=== PATIENT | male | born 1985 | race American Indian/Alaskan Native ===

== ENCOUNTER 2017-02-27 16:13 | Inpatient (IN) | payer MEDICAID ==
[2017-02-27] MEDS ORDERED: NACL 0.9% 1000 ML 1,000 ML IV ONE (17:28)
[2017-02-27 23:39] LABS: Hematocrit 33.2 % (35.5-45.6); Hemoglobin 10.6 gm/dl (11.8-15.2); Mean Corpuscular HGB Conc 32 % (32-34); Mean Corpuscular Volume 79 fl (84-94); Platelet Count 216 K/mm3 (140-440); White Blood Count 2.8 K/mm3 (4.5-11.0)
[2017-02-27 23:41] LABS: Mean Corpuscular Hemoglobin 25 pg (28-32); Red Cell Distribution Width 20.3 % (13.2-15.2)
[2017-02-27 23:52] LABS: INR 0.96 (0.87-1.13)
[2017-02-27 23:53] LABS: Partial Thromboplastin Time 36.9 Sec. (24.2-36.6)
[2017-02-28 00:02] LABS: Alanine Aminotransferase 23 units/L (7-56); Albumin 3.9 g/dL (3.9-5); Alkaline Phosphatase 59 units/L (35-129); Anion Gap 18 mmol/L; BUN/Creatinine Ratio 11.25; Bilirubin,Total 0.2 mg/dL (0.1-1.2); Blood Urea Nitrogen 9 mg/dL (9-20); Calcium 8.6 mg/dL (8.4-10.2); Carbon Dioxide 25 mmol/L (22-30); Chloride 99.1 mmol/L (98-107); Glucose 106 mg/dL (75-100); Lipase 27 units/L (13-60); Potassium 3.5 mmol/L (3.6-5.0); Sodium 139 mmol/L (137-145); Total Protein 7.7 g/dL (6.3-8.2)
[2017-02-28] MEDS ORDERED: ZOFRAN IV ONE (02:03)
[2017-02-28] MEDS ORDERED: NACL 0.9% 1000 ML 1,000 ML IV ONE (02:03)
[2017-02-28] MEDS ORDERED: DILAUDID IV ONE (02:03)
--- NOTE | 2017-02-28 02:33 | Emergency Department Report ---
ED GI Bleed HPI - General Chief complaint: GI Bleed Stated complaint: ABD PAIN Time Seen by Provider: 02/28/17 01:18 Source: patient Mode of arrival: Ambulatory Limitations: No Limitations - History of Present Illness Initial comments: 32 yo male with a past medical history HIV/AIDS presents to Hospital complaints of rectal bleeding, nausea, vomiting, and diarrhea. Nausea vomiting of blood in stool started yesterday. Diarrhea started today. Patient complains of intermittent lowering throbbing abdominal pain worse with palpation. No alleviating factors. Pain is reproducible chest tenderness intensity. Patient states his CD4 count is low. Patient has had similar presentation in the past. Previous medical record reviewed. Patient was admitted here March 2016 for 1 day for tenderness appetite is and rectal bleeding but signed out AGAINST MEDICAL ADVICE. It was also noted patient has a history of alcohol abuse. In general 2015 patient was admitted here and had endoscopy and colonoscopy showing hiatal hernia, small shallow ulcer along the esophageal body, vito esophagitis, gastritis of the body and antrum as well as internal hemorrhoids. - Related Data Home Medications Medication Instructions Recorded Confirmed Last Taken Darunavir Ethanolate [Prezista] 75 mg PO QDAY 01/24/16 02/28/17 02/27/17 Ritonavir [Norvir] 100 mg PO QDAY 01/24/16 02/28/17 02/27/17 Darunavir Ethanolate [Prezista] 1 tab PO QDAY 02/28/17 02/28/17 02/27/17 Dolutegravir Sodium [Tivicay] 1 tab PO DAILY 02/28/17 02/28/17 02/27/17 Allergies Allergy/AdvReac Type Severity Reaction Status Date / Time azithromycin Allergy Swelling Verified 01/24/16 16:22 ketorolac tromethamine Allergy Rash Verified 01/24/16 16:22 [From Toradol] metoclopramide HCl Allergy Hives Verified 01/24/16 16:22 [From Reglan] morphine Allergy Vomiting Verified 01/24/16 16:22 tramadol Allergy Hives Verified 01/24/16 16:22 ED Review of Systems ROS: Stated complaint: ABD PAIN Other details as noted in HPI Comment: All other systems reviewed and negative Other: Constitutional: No fevers chills Eyes: No eye pain visual changes ENT: No ear pain or throat pain Neck: Denies pain Respiratory: Denies cough wheezing shortness of breath Cardiovascular: Denies chest pain, palpitations, syncope GI: As per HPI : Denies dysuria Musculoskeletal: Denies back pain, joint swelling Skin: Denies rash, lesions, erythema Neurologic: Denies headache, numbness, weakness Psychiatric: Denies suicidal ideation, hallucinations ED Past Medical Hx - Past Medical History Previous Medical History?: Yes Hx Hypertension: No Hx Heart Attack/AMI: No Hx Congestive Heart Failure: No Hx Diabetes: No Hx Deep Vein Thrombosis: No Hx Pulmonary Embolism: Yes (pneumothorax) Hx Liver Disease: No Hx Renal Disease: No Hx Seizures: No Hx Asthma: No Hx COPD: No Hx Tuberculosis: No Hx HIV: Yes Additional medical history: PCP pneumonia (2009) - Surgical History Past Surgical History?: Yes Hx Pacemaker: No Hx Internal Defibrillator: No Additional Surgical History: BILATERAL knee surg, chest tube - Social History Smoking Status: Current Every Day Smoker Substance Use Type: Alcohol, Prescribed - Medications Home Medications: Home Medications Medication Instructions Recorded Confirmed Last Taken Type Darunavir Ethanolate [Prezista] 75 mg PO QDAY 01/24/16 02/28/17 02/27/17 History Ritonavir [Norvir] 100 mg PO QDAY 01/24/16 02/28/17 02/27/17 History Darunavir Ethanolate [Prezista] 1 tab PO QDAY 02/28/17 02/28/17 02/27/17 History Dolutegravir Sodium [Tivicay] 1 tab PO DAILY 02/28/17 02/28/17 02/27/17 History ED Physical Exam - General Limitations: No Limitations - Other Other exam information: General: No limitations, patient is alert in no acute distress Head exam: Atraumatic, normocephalic Eyes exam: Normal appearance ENT: Moist mucous membrane, no thrush Neck exam: Normal inspection, full range of motion, no meningismus nontender Respiratory exam: Clear to auscultation bilateral, no wheezes, rales, crackles Cardiovascular: Normal rate and rhythm, normal heart sounds Abdomen: Soft, nondistended, lower abdominal tenderness, normal bowel sounds, no rebound or guarding. Patient is vomiting in the ED Extremity: Full range of motion normal inspection no deformity Back: Normal Inspection, full range of motion, no tenderness Neurologic: Alert, oriented x3, cranial nerves intact, no motor or sensory deficit Psychiatric: normal affect, normal mood Skin: Warm, dry, intact ED Course Vital Signs 02/27/17 02/28/17 02/28/17 17:23 01:37 01:43 Temperature 99.0 F Pulse Rate 85 83 Respiratory 16 15 20 Rate Blood Pressure 139/86 115/69 O2 Sat by Pulse 93 100 Oximetry - Reevaluation(s) Reevaluation #1: 02/28/17 02:41 Patient treated with Dilaudid, Benadryl, Zofran, and normal saline - Consultations Consultation #1: 02/28/17 02:39 Case d/w Dr. Maximilian COMBS WIll consult in am ED Medical Decision Making - Lab Data Result diagrams: 02/27/17 23:13 02/27/17 23:13 Lab Results 02/27/17 02/27/17 02/27/17 Range/Units 23:13 23:13 23:13 WBC 2.8 L (4.5-11.0) K/mm3 RBC 4.20 (3.65-5.03) M/mm3 Hgb 10.6 L (11.8-15.2) gm/dl Hct 33.2 L (35.5-45.6) % MCV 79 L (84-94) fl MCH 25 L (28-32) pg MCHC 32 (32-34) % RDW 20.3 H (13.2-15.2) % Plt Count 216 (140-440) K/mm3 [place] % (Auto) Chain Maker Hand PT 12.7 (12.2-14.9) Sec. INR 0.96 (0.87-1.13) APTT 36.9 H (24.2-36.6) Sec. Sodium 139 (137-145) mmol/L Potassium 3.5 L (3.6-5.0) mmol/L Chloride 99.1 (98-107) mmol/L Carbon Dioxide 25 (22-30) mmol/L Anion Gap 18 mmol/L BUN 9 (9-20) mg/dL Creatinine 0.8 (0.8-1.5) mg/dL Estimated GFR > 60 ml/min BUN/Creatinine Ratio 11.25 % Glucose 106 H (75-100) mg/dL Calcium 8.6 (8.4-10.2) mg/dL Total Bilirubin 0.2 (0.1-1.2) mg/dL AST 32 (5-40) units/L ALT 23 (7-56) units/L Alkaline Phosphatase 59 (35-129) units/L Total Protein 7.7 (6.3-8.2) g/dL Albumin 3.9 (3.9-5) g/dL Albumin/Globulin Ratio 1.0 % Lipase 27 (13-60) units/L Blood Type Antibody Screen 02/27/17 Range/Units 23:13 WBC (4.5-11.0) K/mm3 RBC (3.65-5.03) M/mm3 Hgb (11.8-15.2) gm/dl Hct (35.5-45.6) % MCV (84-94) fl MCH (28-32) pg MCHC (32-34) % RDW (13.2-15.2) % Plt Count (140-440) K/mm3 [place] % (Auto) PT (12.2-14.9) Sec. INR (0.87-1.13) APTT (24.2-36.6) Sec. Sodium (137-145) mmol/L Potassium (3.6-5.0) mmol/L Chloride (98-107) mmol/L Carbon Dioxide (22-30) mmol/L Anion Gap mmol/L BUN (9-20) mg/dL Creatinine (0.8-1.5) mg/dL Estimated GFR ml/min BUN/Creatinine Ratio % Glucose (75-100) mg/dL Calcium (8.4-10.2) mg/dL Total Bilirubin (0.1-1.2) mg/dL AST (5-40) units/L ALT (7-56) units/L Alkaline Phosphatase (35-129) units/L Total Protein (6.3-8.2) g/dL Albumin (3.9-5) g/dL Albumin/Globulin Ratio % Lipase (13-60) units/L Blood Type A POSITIVE Antibody Screen Negative - EKG Data -: EKG Interpreted by Me (sinus rhythm rate 88 and nonspecific T-wave abnormality) - EKG Data When compared to previous EKG there are: no significant change (compared to ) - Medical Decision Making Plan to admit this to the hospital overnight for hydration, hemoglobin monitoring, and control of pain and vomiting. - Differential Diagnosis hemorrhoids, AVM, diverticulosis, cancer,anemia, gastroenteritis, PUD Critical Care Time: No Critical care attestation.: If time is entered above; I have spent that time in minutes in the direct care of this critically ill patient, excluding procedure time. ED Disposition Clinical Impression: BRBPR (bright red blood per rectum), HIV (human immunodeficiency virus infection), Hx of hemorrhoids, Vomiting, Abdominal pain Disposition: OP ADMITTED IP TO THIS HOSP Is pt being admited?: Yes Condition: Stable Time of Disposition: 02:42 (Dr Wilde/hosp)
[2017-02-28] MEDS ORDERED: BENADRYL IV ONE (02:34)
[2017-02-28] MEDS ORDERED: MILK OF MAGNESIA PO PRN (03:25)
[2017-02-28] MEDS ORDERED: DULCOLAX PR PRN (03:25)
--- NOTE | 2017-02-28 03:35 | History and Physical Report ---
History of Present Illness Date of examination: 02/28/17 History of present illness: 30 y.o. man history of HIV, internal hemorrhoids came to the emergency room with abdominal pain, nausea, vomiting, diarrhea. Admits to hematochezia with bowel movements. Abdominal pain lower abdomen, better with pain medications Patient denies chest pain, palpitation, shortness of breath, cough, abdominal pain, hematochezia, dysuria, frequency, focal weakness, dysarthria, fever chills , polydipsia polyuria, hot or cold intolerance, easy bruisability, or rash or bleeding from mucosal membrane, rhinorrhea, epistaxis, earache, tinnitus, blurry vision, eye discharge, anxiety, depression. Other review of systems negative PAST SURGICAL HISTORY: Bilateral knee surgery, IVC filter SOCIAL HISTORY: Smokes half pack a day, drinks 8 beers a day, no drug FAMILY HISTORY: Hypertension Medications and Allergies Allergies Allergy/AdvReac Type Severity Reaction Status Date / Time azithromycin Allergy Swelling Verified 01/24/16 16:22 ketorolac tromethamine Allergy Rash Verified 01/24/16 16:22 [From Toradol] metoclopramide HCl Allergy Hives Verified 01/24/16 16:22 [From Reglan] morphine Allergy Vomiting Verified 01/24/16 16:22 tramadol Allergy Hives Verified 01/24/16 16:22 Home Medications Medication Instructions Recorded Confirmed Last Taken Type Darunavir Ethanolate [Prezista] 75 mg PO QDAY 01/24/16 02/28/17 02/27/17 History Ritonavir [Norvir] 100 mg PO QDAY 01/24/16 02/28/17 02/27/17 History Darunavir Ethanolate [Prezista] 1 tab PO QDAY 02/28/17 02/28/17 02/27/17 History Dolutegravir Sodium [Tivicay] 1 tab PO DAILY 02/28/17 02/28/17 02/27/17 History Active Meds: Active Medications Bisacodyl (Dulcolax) 10 mg NC QDAY PRN PRN Reason: Constipation unrelieved by MOM Hydromorphone HCl (Dilaudid) 1 mg IV Q6H PRN PRN Reason: Pain, Moderate (4-6) Magnesium Hydroxide (Milk Of Magnesia) 30 ml PO Q4H PRN PRN Reason: Constipation Ondansetron HCl (Zofran) 4 mg IV Q4H PRN PRN Reason: N/V unrelieved by Reglan Exam - Physical Exam Narrative exam: Gen. appearance: Patient lying in bed, no apparent distress HEENT: Normocephalic, atraumatic, pupils equally round and reactive to light, extraocular movement intact, and no sclericterus,. No JVD or thyromegaly or nodule,neck supple, no carotid bruit ,mucous membranes moist, no exudate or erythema Heart: S1, S2, regular rate and rhythm Lungs: Clear to auscultation bilaterally, breathing comfortable Abdomen: Positive bowel sounds, nontender, nondistended, no organomegaly Extremity: No edema, cyanosis, clubbing Skin: No rash, nodules, warm, dry Neuro: Oriented 3, cranial nerves II-12 intact, speech is fluent, motor and sensory intact - Constitutional Vitals: Temp Pulse Resp BP Pulse Ox 99.0 F 83 20 115/69 100 02/27/17 17:23 02/28/17 01:37 02/28/17 02:32 02/28/17 01:37 02/28/17 01:43 Results - Labs CBC & Chem 7: 02/27/17 23:13 02/27/17 23:13 Labs: Abnormal lab results 02/27/17 02/27/17 02/27/17 Range/Units 23:13 23:13 23:13 WBC 2.8 L (4.5-11.0) K/mm3 Hgb 10.6 L (11.8-15.2) gm/dl Hct 33.2 L (35.5-45.6) % MCV 79 L (84-94) fl MCH 25 L (28-32) pg RDW 20.3 H (13.2-15.2) % APTT 36.9 H (24.2-36.6) Sec. Potassium 3.5 L (3.6-5.0) mmol/L Glucose 106 H (75-100) mg/dL Assessment and Plan Rectal bleed due to internal hemorrhoids Abdominal pain HIV History of DVT Admit to medicine Continue start IV fluids, IV dilaudid, Consult GI start outpatient medications, DVT prophylaxis with SCD
--- NOTE | 2017-02-28 04:19 | Admit Criteria Form ---
Admission Criteria Documentation: GASTROINTESTINAL BLEEDING, LOWER Clinical Indications for Admission to Inpatient Care ( Place 'X' for any and all applicable criteria): Admission is indicated for ANY ONE of the following(1)(2)(3)(4)(5): [X ]I. Active gross bleeding per rectum [ ]II. Inpatient admission required rather than observation care (Also use Gastrointestinal Bleeding, Lower: Observation Care as appropriate) because of ANY ONE of the following: [ ]a) Hemodynamic instability that is severe or persistent [ ]b) Anemia requiring inpatient admission as indicated by ALL of the following: [ ]1) Presence of significant clinical finding indicated by ANY ONE of the following: [ ]A. Tachycardia for age [ ]B. Orthostatic vital sign changes [ ]C. Cognitive impairment [ ]D. Heart failure [ ]E. Chest pain [ ]F. Exertional dyspnea [ ]G. Other findings suggesting inadequate perfusion (eg, peripheral or myocardial ischemia, end organ dysfunction) [ ]2) Initial (eg, emergency department, observation care) treatment with transfusion or volume replacement is judged inappropriate (due to severity of the finding) or has been ineffective [ ]c) Severe pain requiring acute inpatient management [ ]d) Absent bowel sounds with complete ileus [ ]e) Signs of intestinal obstruction or peritonitis [A] [ ]f) High-risk low platelet count [ ]g) Severe electrolyte abnormalities requiring inpatient care [ ]h) Acute renal failure [ ]i) High fever or infection requiring inpatient admission as indicated by ANY ONE of the following(8)(9): [ ]1) Appropriate outpatient or observation care antimicrobial treatment unavailable, not effective, or not feasible Documented bacteremia [ ]2) Documented bacteremia [ ]3) Temperature greater than 104.9 degrees F ( 40.5 degrees C) (oral) [ ]4) Temperature greater than 103.1 degrees F ( 39.5 degrees C) (oral) or less than 96.8 degrees F (36 degrees C) (rectal) that does not respond to all emergency treatment measures [ ]j) IV fluid to replace significant ongoing losses ( greater than 3 L/m2 per day) [ ]k) Immediate inpatient surgery needed [ ]l) Parenteral nutrition regimen that must be implemented on inpatient basis [ ]m) Other condition, treatment or monitoring requiring inpatient admission [ ]III. Unstable comorbid illness (renal, hepatic, pulmonary, hematologic, neurologic, or cardiac) [ ]IV. Failure to control bleeding after colonoscopy [ ]V. Coagulopathy [ ]. Suspected or known ischemic colitis(6) [ ]VII. Previous aortic graft placement or known aortic aneurysm Extended stay beyond goal length of stay may be needed for(3)(4)(28): [ ]a) Emergency surgery [ ]b) Coagulation abnormalities(26) [ ]c) Recurrent or persistent bleeding, continued vital sign instability(27)( 28) [ ]d) Active comorbidities (eg, renal insufficiency, heart failure, pre- existing liver disease) The original [employer] content created by [employer] has been revised. The portions of the content which have been revised are identified through the use of italic text or in bold, and [facility] has neither reviewed nor approved the modified material. All other unmodified content is copyright [email or web address]. Please see references footnoted in the original [employer] edition 2016 Admission Criteria Met: Yes
[2017-02-28 04:50] LABS: Basophils % (Manual) 0 % (0.0-1.8); Blastocytes % (Manual) 0 %; Eosinophils % (Manual) 0 % (0.0-4.3)
[2017-02-28 04:51] LABS: Anisocytosis 1+; Diff Status Complete; Elliptocytes Few; Hypochromasia 1+; Tear Drop Cells Rare
[2017-02-28] MEDS: DILAUDID IV PRN ×3 (08:09→21:15)
[2017-02-28] MEDS: ZOFRAN IV PRN ×3 (08:11→18:22)
--- NOTE | 2017-02-28 08:24 | Event Note ---
Date: 02/28/17
[2017-02-28] MEDS: PROTONIX IV SCH ×2 (13:55→21:16)
[2017-02-28] MEDS ORDERED: GOLYTELY PO ONE (18:00)
[2017-03-01] MEDS: ZOFRAN IV PRN (00:21)
--- NOTE | 2017-03-01 00:44 | Consultation ---
INDICATION: Rectal bleeding. HISTORY OF PRESENT ILLNESS: The patient is a 30-year-old black male with history of HIV, internal hemorrhoids, came to Emergency Room for abdominal pain, rectal bleeding. The patient reports he started having hematochezia with bright red maroon stools one day prior to admission along with abdominal pain. He reports no nausea, vomiting. He reports no hematemesis. Denies any dysphagia. The patient is status post EGD and colonoscopy within the last year with esophagitis, but no other significant pathology. The patient denies any weight loss or weakness. Denies any other specific complaints. PAST MEDICAL HISTORY: 1. HIV positive. 2. Internal hemorrhoids. PAST SURGICAL HISTORY: 1. Bilateral knee surgery. 2. Status post IVC filter placed. MEDICATIONS: See chart. ALLERGIES: 1. AZITHROMYCIN. 2. TORADOL. 3. REGLAN. 4. MORPHINE. 5. TRAMADOL. SOCIAL HISTORY: One-pack a day smoker. Eight beers a day. FAMILY HISTORY: Negative for colon cancer. REVIEW OF SYSTEMS: GENERAL: Reports mild weakness. HEENT: No visual complaints or tinnitus. PULMONARY: Shortness of breath. No cough. No chest pain. GASTROINTESTINAL: Reports rectal bleeding. All points of 13-point review of systems otherwise negative. PHYSICAL EXAMINATION: VITAL SIGNS: Temperature of 98.2, pulse 71, respirations 20, blood pressure 119/78. GENERAL: Fairly nourished male, in no acute distress. HEENT: Pupils equal, round, and reactive to light and accommodation. PULMONARY: Clear to auscultation bilaterally. CARDIOVASCULAR: Regular rhythm. Normal S1, S2. ABDOMEN: Positive bowel sounds, soft. SKIN: No obvious rashes. LABORATORY DATA: Pertinent for white count of 2.8, hemoglobin and hematocrit 10.6 and 33.2, platelet count of 216,000. Chem-7 within normal limits. LFTs within normal limits. Coags within normal limits. ASSESSMENT AND PLAN: A 32-year-old reported HIV, noncompliant black male, presents with 1 day of rectal bleeding. The patient noted to have heme positive stool. Emergency report shows he is continued to have bleeding. The patient did have an EGD and colonoscopy within the last year, which only showed esophagitis. Possibility of hemorrhoids versus other lower GI pathology. PLAN: 1. Follow hematocrit and transfuse as needed. 2. Avoid NSAIDs and aspirin. 3. If rectal bleeding persists, we will plan for colonoscopy in a.m. 4. Further recommendation based on progress. [facility]# [id number] CAB/NTS
[2017-03-01] MEDS: DILAUDID IV PRN ×2 (03:16→10:17)
[2017-03-01] MEDS ORDERED: WATER FOR IRRIG STERILE IR ONE (08:21)
[2017-03-01] MEDS ORDERED: DIPRIVAN 10 MG/ML IV ONE ×2 (08:57)
[2017-03-01] MEDS ORDERED: NACL 0.9% 1000 ML 1,000 ML IV SCH (09:00)
--- NOTE | 2017-03-01 09:33 | Post Operative Note ---
Pre-op diagnosis: Rectal Bleeding, Poor prep Post-op diagnosis: other (Hemorrhoids, Poor prep) Findings: 1. Scattered solid stool in colon, but no blood or clots. 2. Grade II internal hemorrhoids but no obvious fissure Procedure: Colonoscopy Anesthesia: MAC Surgeon: CEDRICK KAHN Estimated blood loss: none Pathology: none Specimen disposition: other (N/A) Condition: stable Disposition: floor (Recs: 1. Topical care of hemorrhoids. 2. OK to d/c home from our standpoint.)
--- NOTE | 2017-03-01 09:41 | Anesthesia Consultation ---
Anesthesia Consult and Med Hx Date of service: 03/01/17 - Airway Anesthetic Teeth Evaluation: Good ROM Head & Neck: Adequate Mental/Hyoid Distance: Adequate Mallampati Class: Class II Intubation Access Assessment: Probably Good - Pulmonary Exam CTA: Yes - Cardiac Exam Cardiac Exam: RRR - Pre-Operative Health Status ASA Pre-Surgery Classification: ASA3 Proposed Anesthetic Plan: MAC - Pulmonary Hx Smoking: Yes Hx Asthma: No COPD: No Hx Pneumonia: Yes Hx Sleep Apnea: No - Cardiovascular System Hx Hypertension: No Hx Coronary Artery Disease: No Hx Heart Attack/AMI: No Hx Angina: No Hx Pacemaker: No Hx Internal Defibrillator: No - Central Nervous System Hx Seizures: No CVA: No Hx Psychiatric Problems: No - Gastrointestinal Hx Ulcer: Yes - Endocrine Hx Renal Disease: No Hx End Stage Renal Disease: No Hx Liver Disease: No Hx Non-Insulin Dependent Diabetes: No Hx Thyroid Disease: No - Hematic Hx Anemia: Yes (HIV/AIDS) - Other Systems Hx Alcohol Use: Yes
--- NOTE | 2017-03-01 09:42 | Anesthesia Day of Surgery ---
Anesthesia Day of Surgery - Day of Surgery Patient Examined: Yes Patient H&P Reviewed: Yes Patient is NPO: Yes
--- NOTE | 2017-03-01 09:54 | Operative Report ---
PROCEDURE PERFORMED: Colonoscopy. PREOPERATIVE DIAGNOSIS: Rectal bleeding. POSTOPERATIVE DIAGNOSES: Hemorrhoids and poor preparation. ENDOSCOPIST: Rowdy Uribe MD. INSTRUMENT: [employer] video endoscope. MEDICATIONS: MAC anesthesia by [facility]. COMPLICATIONS: No apparent complications. ESTIMATED BLOOD LOSS: None. CONDITION AT COMPLETION: Stable. IMPLANTS: None. WARRANT SERVER: None SPECIMENS: None. TECHNIQUE: The patient was informed of the risks and benefits of the procedure. He signed the informed consent to proceed. He was placed in the left lateral decubitus position. The above sedative medications were given. His vital signs remained stable throughout the procedure. The instrument was advanced from the anus to the cecum under direct visualization. At that point, the bowel was insufflated and the endoscope was slowly withdrawn. The cecum was identified by the appendiceal orifice and the ileocecal valve. The quality of preparation was poor and there was some solid stool scattered throughout the colon. FINDINGS: 1. Mild amount of solid stool, but no blood or blood clots throughout the colon. 2. Grade 2 internal hemorrhoids, not actively bleeding; there was no evidence of an anal fissure. 3. No other significant lesions were noted. RECOMMENDATIONS: 1. Advance diet. 2. Monitor blood counts. 3. Okay to discharge the patient home when taking a regular diet. 4. Follow up in clinic as needed. 5. Topical care of hemorrhoids. JOB# [id number] CASSIA/NTS
[2017-03-01] MEDS: PROTONIX IV SCH (10:17)
[2017-03-01 10:41] VITALS: BP 113/86
[2017-03-01 11:55] LABS: Hematocrit 34.3 % (35.5-45.6); Mean Corpuscular HGB Conc 32 % (32-34); Mean Corpuscular Volume 79 fl (84-94); Platelet Count 207 K/mm3 (140-440); Red Blood Count 4.35 M/mm3 (3.65-5.03); Red Cell Distribution Width 19.7 % (13.2-15.2); White Blood Count 3.5 K/mm3 (4.5-11.0)
[2017-03-01 12:04] LABS: Anion Gap 17 mmol/L; BUN/Creatinine Ratio 7.14; Blood Urea Nitrogen 5 mg/dL (9-20); Calcium 8.6 mg/dL (8.4-10.2); Carbon Dioxide 23 mmol/L (22-30); Chloride 99.7 mmol/L (98-107); Glucose 88 mg/dL (75-100); Potassium 3.8 mmol/L (3.6-5.0); Sodium 136 mmol/L (137-145)
[2017-03-01 12:05] LABS: Mean Corpuscular Hemoglobin 25 pg (28-32)
[2017-03-01] MEDS ORDERED: DILAUDID PO PRN (12:36)
--- NOTE | 2017-03-01 12:37 | Discharge Summary ---
Providers - Providers Date of Admission: 02/28/17 03:25 Date of discharge: 03/01/17 Attending physician: PRATIMA NICHOLS Primary care physician: SPEAKER MOUNTER Hospitalization Condition: Stable Disposition: DISCHARGED TO HOME OR SELFCARE Core Measure Documentation - Palliative Care Palliative Care/ Comfort Measures: Not Applicable - Core Measures Any of the following diagnoses?: none Exam - Constitutional Vitals: Temp Pulse Resp BP Pulse Ox 98.9 F 75 16 113/86 100 03/01/17 09:25 03/01/17 09:55 03/01/17 09:55 03/01/17 09:55 03/01/17 10:00 General appearance: Present: no acute distress, well-nourished - EENT Eyes: Present: PERRL, EOM intact - Neck Neck: Present: supple, normal ROM - Respiratory Respiratory effort: normal Respiratory: negative: rales, rhonchi, wheezing - Cardiovascular Rhythm: regular Heart Sounds: Present: S1 & S2 - Extremities Extremities: no ischemia, pulses intact, pulses symmetrical Peripheral Pulses: within normal limits - Abdominal General gastrointestinal: Present: soft, non-tender, non-distended, normal bowel sounds - Integumentary Integumentary: Present: clear, warm - Musculoskeletal Musculoskeletal: strength equal bilaterally - Psychiatric Psychiatric: appropriate mood/affect, cooperative - Neurologic Neurologic: CNII-XII intact, moves all extremities Plan Activity: advance as tolerated Diet: regular Additional Instructions: f/u GI as needed. high fiber diet Follow up with: PRIMARY CARE, [Primary Care Provider] - 7 Days Prescriptions: Ciprofloxacin HCl [Ciprofloxacin TAB] 500 mg PO Q12H #10 tab Docusate Sodium [Colace] 100 mg PO BID PRN #14 capsule PRN Reason: Constipation guaiFENesin/DEXTROMETHORPHAN [Robitussin Kzyzw-Onzhq-Dudx Dm] 1 each PO TID PRN #15 capsule PRN Reason: Cough Hydrocortisone [Anucort-HC SUPPOS] 25 mg RC BID #14 supp.rect HYDROmorphone [Dilaudid] 1 mg PO Q12H #10 tablet
--- NOTE | 2017-03-01 13:02 | XRay Report ---
Single view chest: Compared to 12/04/15. History: Cough. Findings: Normal cardiomediastinal silhouette. Trachea is midline. No consolidation, pneumothorax or pleural effusion. Impression: No acute cardiopulmonary findings.
[2017-03-01 15:06] LABS: Anisocytosis 1+; Basophils % (Manual) 0 % (0.0-1.8); Blastocytes % (Manual) 0 %
[2017-03-01 15:07] LABS: Diff Status Complete; Hypochromasia Few; Platelet Estimate Consistent w Auto
== END 2017-03-01 16:30 | disposition home or self-care (01) | DRG 395 ==
LOC: ED 16:13 → 3A 02-28 03:25
PROVIDERS: ADMIT Internal Medicine; ATTEND Internal Medicine
PROC: 0DJD8ZZ Inspection of Lower Intestinal Tract, Via Natural or Artificial Opening Endoscopic (ICD-10-PCS; principal; 2017-02-28)
DX: K64.8 Other hemorrhoids (principal); Z21 Asymptomatic human immunodeficiency virus [HIV] infection status; F17.210 Nicotine dependence, cigarettes, uncomplicated; Z88.1 Allergy status to other antibiotic agents; Z88.8 Allergy status to other drugs, medicaments and biological substances; Z79.899 Other long term (current) drug therapy; Z88.5 Allergy status to narcotic agent; Z86.711 Personal history of pulmonary embolism; Z82.49 Family history of ischemic heart disease and other diseases of the circulatory system; Z86.718 Personal history of other venous thrombosis and embolism; Z79.01 Long term (current) use of anticoagulants; Z87.01 Personal history of pneumonia (recurrent); Z91.14 Patient's other noncompliance with medication regimen
CPT/HCPCS: 36415; 71010; 80048; 80053; 82271; 83690; 85007; 85025; 85610; 85730; 86850; 86900; 86901; 93005; 93010; 96361; 96374; 96375; 99406; C9113; J1170; J1200; J2405; J2704; J7030

== ENCOUNTER 2017-09-03 12:37 | Emergency (ER) | payer MEDICAID ==
[2017-09-03] MEDS ORDERED: NACL 0.9% 1000 ML 1,000 ML IV ONE (16:01)
[2017-09-03] MEDS ORDERED: PEPCID IV ONE (17:40)
[2017-09-03] MEDS ORDERED: ZOFRAN IV ONE (17:51)
--- NOTE | 2017-09-03 17:51 | Emergency Department Report ---
HPI - General Chief Complaint: GI Bleed Time Seen by Provider: 09/03/17 16:54 - HPI HPI: This is a 32-year-old Afro-[place] male presents to the emergency department with complaint of upper abdominal pain, nausea and vomiting has been going on for the past week but worsened over the past 2 days. He also complains of some intermittent rectal bleeding with bowel movements but nothing in the past few days. He has a history of multiple previous visits for similar symptoms. He had a colonoscopy in March of this year, here at [facility], that showed some internal hemorrhoids but otherwise no source of bleeding. He does not currently have any primary care physician or infectious disease doctor. He has a history of HIV and gastric ulcers. He has had PCP pneumonia in the past. He has not taken anything for symptoms without presentation. He has not on any HIV medications. He also complains of some thrush in the mouth the past 2 weeks. He says that he has been resistant in the past to fluconazole and has required miconazole. ED Past Medical Hx - Past Medical History Previous Medical History?: Yes Hx Hypertension: No Hx Heart Attack/AMI: No Hx Congestive Heart Failure: No Hx Diabetes: No Hx Deep Vein Thrombosis: No Hx Pulmonary Embolism: Yes (pneumothorax) Hx Liver Disease: No Hx Renal Disease: No Hx Seizures: No Hx Asthma: No Hx COPD: No Hx Tuberculosis: No Hx HIV: Yes Additional medical history: PCP pneumonia (2009), gastric ulcers - Surgical History Past Surgical History?: Yes Hx Pacemaker: No Hx Internal Defibrillator: No Additional Surgical History: BILATERAL knee surg, chest tube - Social History Smoking Status: Current Every Day Smoker Substance Use Type: Alcohol, Prescribed - Medications Home Medications: Home Medications Medication Instructions Recorded Confirmed Last Taken Type Darunavir Ethanolate [Prezista] 75 mg PO QDAY 01/24/16 02/28/17 02/27/17 History Ritonavir [Norvir] 100 mg PO QDAY 01/24/16 02/28/17 02/27/17 History Dolutegravir Sodium [Tivicay] 1 tab PO DAILY 02/28/17 02/28/17 02/27/17 History Ciprofloxacin HCl [Ciprofloxacin 500 mg PO Q12H #10 tab 03/01/17 Unknown Rx TAB] Docusate Sodium [Colace] 100 mg PO BID PRN #14 capsule 04/01/17 Unknown Rx HYDROmorphone [Dilaudid] 1 mg PO Q12H #10 tablet 03/01/17 Unknown Rx Hydrocortisone [Anucort-HC SUPPOS] 25 mg RC BID #14 supp.rect 03/01/17 Unknown Rx guaiFENesin/DEXTROMETHORPHAN 1 each PO TID PRN #15 capsule 03/01/17 Unknown Rx [Robitussin Mbcem-Ogyck-Jkjt Dm] HYDROcodone/APAP 5-325 [[place] 1 each PO Q6HR PRN #10 tablet 09/03/17 Unknown Rx 5/325] Nystatin [Nystatin SUSP] 5 ml PO QID #280 ml 09/03/17 Unknown Rx Ondansetron [Zofran Odt] 4 mg PO Q8H PRN #10 tab.rapdis 09/03/17 Unknown Rx ED Review of Systems ROS: Stated complaint: RECTAL BLEEDING X 2 DAYS Other details as noted in HPI Comment: All other systems reviewed and negative Constitutional: denies: chills, fever Eyes: denies: eye pain, eye discharge, vision change ENT: other (oral thrush). denies: ear pain, throat pain Cardiovascular: denies: chest pain, palpitations Gastrointestinal: abdominal pain, nausea, vomiting Genitourinary: denies: urgency, dysuria Musculoskeletal: denies: back pain, joint swelling, arthralgia Skin: denies: rash, lesions Neurological: denies: headache, weakness, paresthesias Physical Exam - Physical Exam Vital Signs: Vital Signs 09/03/17 15:58 Temperature 99.4 F Pulse Rate 76 Respiratory 18 Rate Blood Pressure 116/79 O2 Sat by Pulse 100 Oximetry Physical Exam: GENERAL: The patient is well-developed well-nourished. HENT: Normocephalic. Atraumatic. Patient has moist mucous membranes. The patient has oral thrush. No tonsillar hypertrophy, erythema or exits. No drooling or trismus. EYES: Extraocular motions are intact. Pupils equal reactive to light bilaterally. NECK: Supple. Trachea is midline. CHEST/LUNGS: Clear to auscultation. There is no respiratory distress noted. HEART/CARDIOVASCULAR: Regular. There is no tachycardia. There is no gallop rub or murmur. ABDOMEN: Abdomen is soft. Mild upper abdominal tenderness to palpation. No guarding or rebound tenderness. Patient has normal bowel sounds. There is no abdominal distention. SKIN: Skin is warm and dry. NEURO: The patient is awake, alert, and oriented. The patient is cooperative. The patient has no focal neurologic deficits. The patient has normal speech. MUSCULOSKELETAL: There is no tenderness or deformity. There is no limitation range of motion. There is no evidence of acute injury. RECTAL: deferred ED Course Vital Signs 09/03/17 15:58 Temperature 99.4 F Pulse Rate 76 Respiratory 18 Rate Blood Pressure 116/79 O2 Sat by Pulse 100 Oximetry - Procedure Description Procedures done: An arterial stick was done to the right wrist as the nursing staff and phlebotomy were unable to draw the patient's blood. Using the ultrasound, I was able to find a right radial artery and a 22-gauge butterfly needle was used to cannulate the artery and multiple vials of blood were drawn. Afterwards sterile gauze and tape and pressure were held. No obvious complications. - EJ/Peripheral Line Arm R Time Out Performed: Yes Indications: nurses unable to establis Skin Cleansed in Sterile Fashion: Yes Size: 22 Dressing Placed: Tegaderm, tape Patient Tolerated Procedure: well Additional Comments: ultrasound guided ED Medical Decision Making - Lab Data Result diagrams: 09/03/17 16:01 09/03/17 16:01 - Radiology Data Radiology results: report reviewed, image reviewed interpreted by me: Abdominal x-ray shows nonspecific nonobstructive bowel gas. PROCEDURE: US ABDOMEN LIMITED TECHNIQUE: Real-time sonography was performed of the right upper quadrant with image documentation. CPT 39343 HISTORY: Upper abd pain COMPARISON: No prior studies are available for comparison. FINDINGS: Liver echogenicity is mildly diffusely increased suggesting fatty infiltration. No discrete liver lesions are identified. Common bile duct is normal caliber measuring 5.2 millimeters. The intrahepatic ducts are not distended. No ascites is seen. The gallbladder wall is not thickened. No gallstones are identified. Pancreas is poorly visualized due to bowel gas and cannot be accurately commented on. Right kidney showed no abnormalities. Right kidney measures 10.1 centimeters greatest length.. IMPRESSION: Mild fatty infiltration the liver. No other abnormalities are seen. Pancreas is poorly visualized due to bowel gas and cannot be accurately commented on. - Medical Decision Making 32-year-old male presents to the emergency department with complaint of upper abdominal pain that is acute on chronic as well as some nausea and vomiting. His labs are mostly unremarkable. There is some mild leukopenia but that may be related to his HIV. No leukocytosis. No elevation in the lipase, LFTs or bilirubin. Due to his upper abdominal pain, ultrasound was done in this region that shows some fatty infiltration of the liver but otherwise no other acute process. Abdominal x-ray shows nonspecific nonobstructive bowel gas. Vital signs stable including being afebrile. He was given some pain medication and nausea medication and upon reevaluation he is feeling improved. The patient does have some history of this oral thrush and there are some antifungals that he appears to be resistant to. However the patient is noncompliant with follow- up and one of the medications that he appears susceptible to 4 thrush requires IV administration and he otherwise does not require admission at this time. We will attempt treatment with nystatin swish and spit. Patient says that he has insurance and admits that noncompliance with follow-up with primary care and infectious disease and gastroenterology is a decision unit makes as opposed to a lack of insurance or lack of resources. I reiterated the importance of follow -up with these physicians as he is not currently taking anything for his HIV. He does not have anyone right now for follow-up of his liver enzymes if he were to go on antifungals. He already has established care with gastroenterology but will need to see them again regarding this intermittent rectal bleeding. He was discharged home with some pain medication and anti-emetics, nystatin, and has been encouraged to return to the ER if any worsening of symptoms or any acute distress. - Differential Diagnosis oral candidiasis, pancreatitis, hepatitis, cholecystitis, cholelithiasis Critical Care Time: No Critical care attestation.: If time is entered above; I have spent that time in minutes in the direct care of this critically ill patient, excluding procedure time. ED Disposition Clinical Impression: HIV (human immunodeficiency virus infection), Thrush, Hx of hemorrhoids Abdominal pain Qualifiers: Abdominal location: upper abdomen, unspecified Qualified Code(s): R10.10 - Upper abdominal pain, unspecified Vomiting Qualifiers: Vomiting type: unspecified Vomiting Intractability: non-intractable Nausea presence: with nausea Qualified Code(s): R11.2 - Nausea with vomiting, unspecified Disposition: DC-01 TO HOME OR SELFCARE Is pt being admited?: No Condition: Stable Instructions: Oral Candidiasis (ED), Acute Nausea and Vomiting (ED), Abdominal Pain (ED) Additional Instructions: Please follow up with a primary care physician in the next few days if possible. I have once again given you the referral for Dr. singer, infectious disease, and it is recommended that he follow up regarding your HIV/AIDS to be started on medication. I have given you a referral for Dr. de la fuente, gastroenterology, to follow up regarding her abdominal pain. Return to the emergency Department with any worsening of your symptoms or any acute distress. You have been prescribed a medication that is sedating and therefore should not be taken prior to driving, working, and responsible for children and in no way should be mixed with alcohol of any quantity. Prescriptions: HYDROcodone/APAP 5-325 [[place] 5/325] 1 each PO Q6HR PRN #10 tablet PRN Reason: Pain Nystatin [Nystatin SUSP] 5 ml PO QID #280 ml Ondansetron [Zofran Odt] 4 mg PO Q8H PRN #10 tab.rapdis PRN Reason: Nausea Referrals: PRIMARY CARE, [Primary Care Provider] - 3-5 Days ELISA SINGER MD [Staff Physician] - 3-5 Days CEDRICK DE LA FUENTE MD [Staff Physician] - 3-5 Days ISAC WALKER MD [Staff Physician] - 3-5 Days [facility] [Outside] - 3-5 Days [facility] [Outside] - 3-5 Days Forms: Accompanied Note Time of Disposition: 21:31
[2017-09-03 18:36] LABS: Basophils % (Auto) 0.1 % (0.0-1.8); Eosinophils % (Auto) 0.9 % (0.0-4.3); Hematocrit 31.2 % (35.5-45.6); Mean Corpuscular HGB Conc 32 % (32-34); Mean Corpuscular Volume 77 fl (84-94); Platelet Count 188 K/mm3 (140-440); Red Blood Count 4.06 M/mm3 (3.65-5.03); Red Cell Distribution Width 18.8 % (13.2-15.2); White Blood Count 3.1 K/mm3 (4.5-11.0)
[2017-09-03 18:38] LABS: Mean Corpuscular Hemoglobin 25 pg (28-32)
[2017-09-03] MEDS ORDERED: DILAUDID IV ONE (18:40)
[2017-09-03 18:46] LABS: INR 0.91 (0.87-1.13)
[2017-09-03 18:47] LABS: Partial Thromboplastin Time 29.9 Sec. (24.2-36.6)
[2017-09-03 19:04] LABS: Alanine Aminotransferase 15 units/L (7-56); Albumin 3.9 g/dL (3.9-5); Albumin/Globulin Ratio 0.9 %; Alkaline Phosphatase 82 units/L (35-129); Anion Gap 18 mmol/L; BUN/Creatinine Ratio 10; Bilirubin,Total < 0.20 mg/dL (0.1-1.2); Blood Urea Nitrogen 8 mg/dL (9-20); Calcium 8.4 mg/dL (8.4-10.2); Carbon Dioxide 25 mmol/L (22-30); Chloride 101.3 mmol/L (98-107); Glucose 116 mg/dL (75-100); Lipase 29 units/L (13-60); Potassium 3.2 mmol/L (3.6-5.0); Sodium 141 mmol/L (137-145); Total Protein 8.1 g/dL (6.3-8.2)
[2017-09-03] MEDS ORDERED: K-DUR PO ONE (19:28)
--- NOTE | 2017-09-03 21:09 | Ultrasound Report ---
FINAL REPORT PROCEDURE: US ABDOMEN LIMITED TECHNIQUE: Real-time sonography was performed of the right upper quadrant with image documentation. CPT 74157 HISTORY: Upper abd pain COMPARISON: No prior studies are available for comparison. FINDINGS: Liver echogenicity is mildly diffusely increased suggesting fatty infiltration. No discrete liver lesions are identified. Common bile duct is normal caliber measuring 5.2 millimeters. The intrahepatic ducts are not distended. No ascites is seen. The gallbladder wall is not thickened. No gallstones are identified. Pancreas is poorly visualized due to bowel gas and cannot be accurately commented on. Right kidney showed no abnormalities. Right kidney measures 10.1 centimeters greatest length.. IMPRESSION: Mild fatty infiltration the liver. No other abnormalities are seen. Pancreas is poorly visualized due to bowel gas and cannot be accurately commented on.
[2017-09-03 21:14] VITALS: BP 108/71
--- NOTE | 2017-09-04 07:49 | XRay Report ---
Abdomen 2 views: History: Abdominal pain. Findings: No free intraperitoneal air. No bowel distention or wall thickening. No radiopaque calculus abnormal calcification. Impression: Sensory negative abdomen.
== END 2017-09-03 21:54 | disposition home or self-care (01) ==
LOC: ED 12:37
DX: B37.9 Candidiasis, unspecified (principal); R11.2 Nausea with vomiting, unspecified; R10.10 Upper abdominal pain, unspecified
CPT/HCPCS: 36415; 36569; 74020; 76705; 80053; 83690; 85025; 85610; 85730; 86850; 86900; 86901; 93005; 93010; 96361; 96374; 96375; 99285; J1170; J2405; J7030

== ENCOUNTER 2018-02-08 17:32 | Emergency (ER) | payer MEDICAID ==
[2018-02-08 17:43] VITALS: BP 112/71
--- NOTE | 2018-02-08 18:25 | Emergency Department Report ---
Chief Complaint: Abdominal Pain Stated Complaint: ABDOMINAL PAIN/RECTAL BLEEDING - HPI History of Present Illness: Mr. Urena is a 33-year-old male has hx of HIV/AIDS with history of several hospitalizations related to recurrent oral candidiasis, abdominal pain and GI bleed. He has had several gastroenterology consultations while admitted. He has a PEG tube in place. Today he presents with abdominal pain and rectal bleeding. According to recent GI consultation, patient has a history of narcotic dependence. He was prescribed Dilaudid on most recent discharge. - Exam Vital Signs: Vital Signs 02/08/18 17:39 Temperature 99.4 F Pulse Rate 112 H Respiratory 16 Rate Blood Pressure 112/71 O2 Sat by Pulse 96 Oximetry MSE screening note: Focused history and physical exam performed. Due to findings the following was ordered: ED Disposition for MSE Condition: Stable
[2018-02-08 19:08] LABS: Basophils % (Auto) 0.7 % (0.0-1.8); Eosinophils # (Auto) 0.1 K/mm3 (0.0-0.4); Eosinophils % (Auto) 3.3 % (0.0-4.3); Hematocrit 33.4 % (35.5-45.6); Hemoglobin 10.8 gm/dl (11.8-15.2); Lymphocytes # (Auto) 0.5 K/mm3 (1.2-5.4); Lymphocytes % (Auto) 13.5 % (13.4-35.0); Mean Corpuscular HGB Conc 32 % (32-34); Mean Corpuscular Hemoglobin 27 pg (28-32); Mean Corpuscular Volume 83 fl (84-94); Monocytes # (Auto) 0.5 K/mm3 (0.0-0.8); Monocytes % (Auto) 13.6 % (0.0-7.3); Platelet Count 209 K/mm3 (140-440); Red Blood Count 4.05 M/mm3 (3.65-5.03); Red Cell Distribution Width 17.8 % (13.2-15.2)
[2018-02-08 19:32] LABS: Alanine Aminotransferase 16 units/L (7-56); Albumin 3.9 g/dL (3.9-5); BUN/Creatinine Ratio 11; Blood Urea Nitrogen 8 mg/dL (9-20); Calcium 8.7 mg/dL (8.4-10.2); Hemolysis Index 10; Lipase 18 units/L (13-60)
[2018-02-08] MEDS ORDERED: ZOFRAN IV ONE (20:00)
[2018-02-08] MEDS ORDERED: SUBLIMAZE IV ONE (20:00)
[2018-02-08] MEDS ORDERED: NACL 0.9% 1000 ML 1,000 ML IV ONE (20:00)
--- NOTE | 2018-02-08 20:05 | Emergency Department Report ---
ED Abdominal Pain HPI - General Chief Complaint: Abdominal Pain Stated Complaint: ABDOMINAL PAIN/RECTAL BLEEDING Time Seen by Provider: 02/08/18 20:00 Source: patient, EMS Mode of arrival: Stretcher Limitations: No Limitations - History of Present Illness Initial Comments: Patient is 33 years old male history of HIV, PCP pneumonia, bleeding peptic ulcer, recent G-tube placement. Patient presented to the ER with diffuse abdominal pain and black stool for the last 2-3 days. Patient describes his pain as crampy associated his nausea and no vomiting. He denied any fever cough shortness of breath or chest pain. MD Complaint: abdominal pain Location: diffuse Radiation: none Severity: moderate Severity scale (0 -10): 3 - Related Data Home Medications Medication Instructions Recorded Confirmed Last Taken Darunavir Ethanolate [Prezista] 75 mg PO QDAY 01/24/16 02/28/17 02/27/17 Ritonavir [Norvir] 100 mg PO QDAY 01/24/16 02/28/17 02/27/17 Dolutegravir Sodium [Tivicay] 1 tab PO DAILY 02/28/17 02/28/17 02/27/17 Previous Rx's Medication Instructions Recorded Last Taken Type Ciprofloxacin HCl [Ciprofloxacin 500 mg PO Q12H #10 tab 03/01/17 Unknown Rx TAB] Docusate Sodium [Colace] 100 mg PO BID PRN #14 capsule 03/01/17 Unknown Rx HYDROmorphone [Dilaudid] 1 mg PO Q12H #10 tablet 03/01/17 Unknown Rx Hydrocortisone [Anucort-HC SUPPOS] 25 mg RC BID #14 supp.rect 03/01/17 Unknown Rx guaiFENesin/DEXTROMETHORPHAN 1 each PO TID PRN #15 capsule 03/01/17 Unknown Rx [Robitussin Lgjac-Qyyab-Flsa Dm] HYDROcodone/APAP 5-325 [[place] 1 each PO Q6HR PRN #10 tablet 09/03/17 Unknown Rx 5/325] Nystatin [Nystatin SUSP] 5 ml PO QID #280 ml 09/03/17 Unknown Rx Ondansetron [Zofran Odt] 4 mg PO Q8H PRN #10 tab.rapdis 09/03/17 Unknown Rx Ondansetron [Zofran Odt] 4 mg PO Q8HR PRN #14 tab.rapdis 02/08/18 Unknown Rx oxyCODONE /ACETAMINOPHEN [Percocet 1 tab PO Q6HR PRN #10 tablet 02/08/18 Unknown Rx 5/325] Allergies Allergy/AdvReac Type Severity Reaction Status Date / Time azithromycin Allergy Swelling Verified 01/24/16 16:22 ketorolac tromethamine Allergy Rash Verified 01/24/16 16:22 [From Toradol] metoclopramide HCl Allergy Hives Verified 01/24/16 16:22 [From Reglan] morphine Allergy Vomiting Verified 01/24/16 16:22 tramadol Allergy Hives Verified 01/24/16 16:22 ED Review of Systems ROS: Stated complaint: ABDOMINAL PAIN/RECTAL BLEEDING Other details as noted in HPI Comment: All other systems reviewed and negative Constitutional: denies: chills, fever Respiratory: denies: cough, orthopnea, shortness of breath, SOB with exertion Cardiovascular: denies: chest pain, palpitations, dyspnea on exertion Gastrointestinal: abdominal pain. denies: nausea, vomiting Genitourinary: denies: urgency, dysuria, frequency Neurological: denies: headache, weakness, numbness, paresthesias ED Past Medical Hx - Past Medical History Hx Hypertension: No Hx Heart Attack/AMI: No Hx Congestive Heart Failure: No Hx Diabetes: No Hx Deep Vein Thrombosis: No Hx Pulmonary Embolism: Yes (pneumothorax) Hx Liver Disease: No Hx Renal Disease: No Hx Seizures: No Hx Asthma: No Hx COPD: No Hx Tuberculosis: No Hx HIV: Yes Additional medical history: PCP pneumonia (2009), gastric ulcers - Surgical History Hx Pacemaker: No Hx Internal Defibrillator: No Additional Surgical History: BILATERAL knee surg, chest tube - Social History Smoking Status: Current Every Day Smoker Substance Use Type: Alcohol, Prescribed - Medications Home Medications: Home Medications Medication Instructions Recorded Confirmed Last Taken Type Darunavir Ethanolate [Prezista] 75 mg PO QDAY 01/24/16 02/28/17 02/27/17 History Ritonavir [Norvir] 100 mg PO QDAY 01/24/16 02/28/17 02/27/17 History Dolutegravir Sodium [Tivicay] 1 tab PO DAILY 02/28/17 02/28/17 02/27/17 History Ciprofloxacin HCl [Ciprofloxacin 500 mg PO Q12H #10 tab 03/01/17 Unknown Rx TAB] Docusate Sodium [Colace] 100 mg PO BID PRN #14 capsule 03/01/17 Unknown Rx HYDROmorphone [Dilaudid] 1 mg PO Q12H #10 tablet 03/01/17 Unknown Rx Hydrocortisone [Anucort-HC SUPPOS] 25 mg RC BID #14 supp.rect 03/01/17 Unknown Rx guaiFENesin/DEXTROMETHORPHAN 1 each PO TID PRN #15 capsule 03/01/17 Unknown Rx [Robitussin Rmmei-Bxyzp-Ecmm Dm] HYDROcodone/APAP 5-325 [[place] 1 each PO Q6HR PRN #10 tablet 09/03/17 Unknown Rx 5/325] Nystatin [Nystatin SUSP] 5 ml PO QID #280 ml 09/03/17 Unknown Rx Ondansetron [Zofran Odt] 4 mg PO Q8H PRN #10 tab.rapdis 09/03/17 Unknown Rx Ondansetron [Zofran Odt] 4 mg PO Q8HR PRN #14 tab.rapdis 02/08/18 Unknown Rx oxyCODONE /ACETAMINOPHEN [Percocet 1 tab PO Q6HR PRN #10 tablet 02/08/18 Unknown Rx 5/325] ED Physical Exam - General Limitations: No Limitations General appearance: alert, in no apparent distress - Head Head exam: Present: atraumatic, normocephalic, normal inspection - Eye Eye exam: Present: normal appearance, PERRL - ENT ENT exam: Present: normal exam, normal orophraynx - Neck Neck exam: Present: normal inspection, full ROM. Absent: tenderness, meningismus, lymphadenopathy, thyromegaly - Respiratory Respiratory exam: Present: normal lung sounds bilaterally. Absent: respiratory distress, wheezes, rales, rhonchi, stridor, chest wall tenderness, accessory muscle use, decreased breath sounds, prolonged expiratory - Cardiovascular Cardiovascular Exam: Present: tachycardia. Absent: systolic murmur, diastolic murmur - GI/Abdominal GI/Abdominal exam: Present: soft, tenderness (diffuse tenderness), normal bowel sounds, other (G-tube in place). Absent: distended, guarding, rebound, rigid, organomegaly, mass, bruit, pulsatile mass, hernia - Rectal Rectal exam: Present: normal inspection, normal rectal tone, heme (+) stool - Extremities Exam Extremities exam: Present: normal inspection, full ROM, normal capillary refill - Back Exam Back exam: Present: normal inspection, full ROM. Absent: CVA tenderness (L), muscle spasm - Neurological Exam Neurological exam: Present: alert, oriented X3, CN II-XII intact, normal gait, reflexes normal - Skin Skin exam: Present: warm, intact, normal color ED Course Vital Signs 02/08/18 17:39 Temperature 99.4 F Pulse Rate 112 H Respiratory 16 Rate Blood Pressure 112/71 O2 Sat by Pulse 96 Oximetry - Reevaluation(s) Reevaluation #1: 02/08/18 22:39 Patient stated that he is feeling much better. Patient does have history of chronic ulcer. Advised patient to avoid NSAID and follow up as his GI doctor next 2-3 days. ED Medical Decision Making - Lab Data Result diagrams: 02/08/18 19:00 02/08/18 19:00 - Radiology Data Radiology results: report reviewed Referring Physician: CAROLINA LOPEZ Patient Name: DELFINO DAVIS Date of : 1985 Sex: Male Report Date: 2018-02-08 Report Status: Finalized Findings [facility] [address] [place] [address] Cat Scan Report Signed Patient: DELFINO DAVIS MR#: [id number] : 1985 Acct:[id number] Age/Sex: 33 / M ADM Date: 02/08/18 Loc: ED Attending Dr: Ordering Physician: CAROLINA LOPEZ Date of Service: 02/08/18 Procedure(s): CT abdomen pelvis wo con Accession Number(s): [id number] cc: CAROLINA LOPEZ FINAL REPORT EXAM: CT ABDOMEN PELVIS WO CON HISTORY: abdominal pain COMPARISON: CT abdomen pelvis from July 2016. TECHNIQUE: Contiguous axial images were obtained. Additional sagittal and coronal reformatted images were obtained. FINDINGS: Mild linear atelectasis at the lung bases. Small hiatal hernia. No calcified gallstones. Liver, spleen, pancreas and adrenal glands are grossly unremarkable. No nephrolithiasis or hydronephrosis. Aorta and IVC normal in caliber. Infrarenal IVC filter is in place. No distal ureteral or urinary bladder calculi. Urinary bladder and prostate gland are grossly unremarkable. No free fluid or lymphadenopathy in the pelvic cavity. The appendix appears to be opacified by enteric contrast and is normal in caliber. Appendicolith less likely. No adjacent fat stranding or fluid. Large and small bowel loops normal in caliber. Gastrojejunostomy tube is in place. Tiny umbilical hernia containing fat only. Mild diverticulosis of the sigmoid colon. No diverticulitis. Lumbar vertebral body heights are preserved. Bony pelvis is grossly intact. IMPRESSION: No focal inflammatory changes of the abdomen and pelvis. Gastrojejunostomy tube is in place. Transcribed By: LMA Dictated By: CARYN COTTON MD Electronically Authenticated By: CARYN COTTON MD Signed Date/Time: 02/08/182209 DD/ 09 TD/TT: 02/08/182209 Critical care attestation.: If time is entered above; I have spent that time in minutes in the direct care of this critically ill patient, excluding procedure time. ED Disposition Clinical Impression: Abdominal pain, GI bleed Disposition: - TO HOME OR SELFCARE Is pt being admited?: No Condition: Stable Instructions: Gastrointestinal Bleeding (ED), Abdominal Pain (ED) Prescriptions: Ondansetron [Zofran Odt] 4 mg PO Q8HR PRN #14 tab.rapdis PRN Reason: Nausea And Vomiting oxyCODONE /ACETAMINOPHEN [Percocet 5/325] 1 tab PO Q6HR PRN #10 tablet PRN Reason: Pain Referrals: CHING MCCALLUM MD [Primary Care Provider] - 3-5 Days
--- NOTE | 2018-02-08 22:15 | Cat Scan Report ---
FINAL REPORT EXAM: CT ABDOMEN PELVIS WO CON HISTORY: abdominal pain COMPARISON: CT abdomen pelvis from July 2016. TECHNIQUE: Contiguous axial images were obtained. Additional sagittal and coronal reformatted images were obtained. FINDINGS: Mild linear atelectasis at the lung bases. Small hiatal hernia. No calcified gallstones. Liver, spleen, pancreas and adrenal glands are grossly unremarkable. No nephrolithiasis or hydronephrosis. Aorta and IVC normal in caliber. Infrarenal IVC filter is in place. No distal ureteral or urinary bladder calculi. Urinary bladder and prostate gland are grossly unremarkable. No free fluid or lymphadenopathy in the pelvic cavity. The appendix appears to be opacified by enteric contrast and is normal in caliber. Appendicolith less likely. No adjacent fat stranding or fluid. Large and small bowel loops normal in caliber. Gastrojejunostomy tube is in place. Tiny umbilical hernia containing fat only. Mild diverticulosis of the sigmoid colon. No diverticulitis. Lumbar vertebral body heights are preserved. Bony pelvis is grossly intact. IMPRESSION: No focal inflammatory changes of the abdomen and pelvis. Gastrojejunostomy tube is in place.
[2018-02-08] MEDS ORDERED: PERCOCET 5/325 PO ONE (22:45)
== END 2018-02-08 23:01 | disposition home or self-care (01) ==
LOC: ED 17:32
DX: K92.2 Gastrointestinal hemorrhage, unspecified (principal); R10.84 Generalized abdominal pain; F17.200 Nicotine dependence, unspecified, uncomplicated
CPT/HCPCS: 36415; 74176; 80053; 82271; 83690; 85025; 96374; 96375; 99284; J2405; J3010

== ENCOUNTER 2018-07-07 15:50 | Emergency (ER) | payer MEDICAID ==
[2018-07-07 15:57] VITALS: BP 123/81
[2018-07-07] MEDS ORDERED: NACL 0.9% 500 ML 500 ML IV ONE (15:58)
--- NOTE | 2018-07-07 16:58 | XRay Report ---
FINAL REPORT EXAM: XR CHEST 1V AP HISTORY: possible Sepsis TECHNIQUE: Frontal portable view of the chest Comparison: Chest x-ray dated November 19, 2015 FINDINGS: There is no evidence of focal infiltrate, pneumothorax or pleural fluid collection. The cardiomediastinal silhouette is normal in appearance. The bony structures are unremarkable. IMPRESSION: 1. No evidence of an acute pulmonary process.
[2018-07-07] MEDS ORDERED: SUBLIMAZE IV ONE (22:54)
[2018-07-07] MEDS ORDERED: ZOSYN/NS 3.375GM/50ML 3.375 GM/50 ML BAG IV SCH (22:54)
[2018-07-07] MEDS ORDERED: ZOFRAN IV ONE (22:54)
--- NOTE | 2018-07-07 22:59 | Emergency Department Report ---
ED General Adult HPI - General Chief complaint: Abdominal Pain Stated complaint: STOMACH PAIN/BLEEDING Time Seen by Provider: 07/07/18 22:45 Source: patient Mode of arrival: Ambulatory Limitations: No Limitations - History of Present Illness Initial comments: Patient is a 33 years old male with history of HIV, peptic ulcer, PEG tube. Patient presented to the ER with multiple complaints. Patient stated that his been having epigastric abdominal pain lost 2-3 days. Patient also complaining of off possible greenish discharge coming out of his PEG tube. He also complaining of low-grade fever and he states infection to his throat. Patient stated that he been taking his HIV medication. - Related Data Home Medications Medication Instructions Recorded Confirmed Last Taken Darunavir Ethanolate [Prezista] 75 mg PO QDAY 01/24/16 02/28/17 02/27/17 Ritonavir [Norvir] 100 mg PO QDAY 01/24/16 02/28/17 02/27/17 Dolutegravir Sodium [Tivicay] 1 tab PO DAILY 02/28/17 02/28/17 02/27/17 Previous Rx's Medication Instructions Recorded Last Taken Type Ciprofloxacin HCl [Ciprofloxacin 500 mg PO Q12H #10 tab 03/01/17 Unknown Rx TAB] Docusate Sodium [Colace] 100 mg PO BID PRN #14 capsule 03/01/17 Unknown Rx HYDROmorphone [Dilaudid] 1 mg PO Q12H #10 tablet 03/01/17 Unknown Rx Hydrocortisone [Anucort-HC SUPPOS] 25 mg RC BID #14 supp.rect 03/01/17 Unknown Rx guaiFENesin/DEXTROMETHORPHAN 1 each PO TID PRN #15 capsule 03/01/17 Unknown Rx [Robitussin Nyrba-Opcbo-Txts Dm] HYDROcodone/APAP 5-325 [[place] 1 each PO Q6HR PRN #10 tablet 09/03/17 Unknown Rx 5/325] Nystatin [Nystatin SUSP] 5 ml PO QID #280 ml 09/03/17 Unknown Rx Ondansetron [Zofran Odt] 4 mg PO Q8H PRN #10 tab.rapdis 09/03/17 Unknown Rx Ondansetron [Zofran Odt] 4 mg PO Q8HR PRN #14 tab.rapdis 02/08/18 Unknown Rx oxyCODONE /ACETAMINOPHEN [Percocet 1 tab PO Q6HR PRN #10 tablet 02/08/18 Unknown Rx 5/325] Allergies Allergy/AdvReac Type Severity Reaction Status Date / Time azithromycin Allergy Swelling Verified 01/24/16 16:22 ketorolac tromethamine Allergy Rash Verified 01/24/16 16:22 [From Toradol] metoclopramide HCl Allergy Hives Verified 01/24/16 16:22 [From Reglan] morphine Allergy Vomiting Verified 01/24/16 16:22 tramadol Allergy Hives Verified 01/24/16 16:22 ED Review of Systems ROS: Stated complaint: STOMACH PAIN/BLEEDING Other details as noted in HPI Comment: All other systems reviewed and negative ENT: throat pain Cardiovascular: denies: chest pain Gastrointestinal: abdominal pain. denies: nausea, vomiting, diarrhea, constipation, hematemesis, melena, hematochezia Genitourinary: denies: urgency, dysuria ED Past Medical Hx - Past Medical History Previous Medical History?: Yes Hx Hypertension: No Hx Heart Attack/AMI: No Hx Congestive Heart Failure: No Hx Diabetes: No Hx Deep Vein Thrombosis: No Hx Pulmonary Embolism: Yes (pneumothorax) Hx Liver Disease: No Hx Renal Disease: No Hx Seizures: No Hx Asthma: No Hx COPD: No Hx Tuberculosis: No Hx HIV: Yes Additional medical history: PCP pneumonia (2009), gastric ulcers - Surgical History Hx Pacemaker: No Hx Internal Defibrillator: No Additional Surgical History: BILATERAL knee surg, chest tube. PEG tube - Social History Smoking Status: Current Every Day Smoker Substance Use Type: Alcohol - Medications Home Medications: Home Medications Medication Instructions Recorded Confirmed Last Taken Type Darunavir Ethanolate [Prezista] 75 mg PO QDAY 01/24/16 02/28/17 02/27/17 History Ritonavir [Norvir] 100 mg PO QDAY 01/24/16 02/28/17 02/27/17 History Dolutegravir Sodium [Tivicay] 1 tab PO DAILY 02/28/17 02/28/17 02/27/17 History Ciprofloxacin HCl [Ciprofloxacin 500 mg PO Q12H #10 tab 03/01/17 Unknown Rx TAB] Docusate Sodium [Colace] 100 mg PO BID PRN #14 capsule 03/01/17 Unknown Rx HYDROmorphone [Dilaudid] 1 mg PO Q12H #10 tablet 03/01/17 Unknown Rx Hydrocortisone [Anucort-HC SUPPOS] 25 mg RC BID #14 supp.rect 03/01/17 Unknown Rx guaiFENesin/DEXTROMETHORPHAN 1 each PO TID PRN #15 capsule 03/01/17 Unknown Rx [Robitussin Mutqt-Pwhtd-Xnpb Dm] HYDROcodone/APAP 5-325 [[place] 1 each PO Q6HR PRN #10 tablet 09/03/17 Unknown Rx 5/325] Nystatin [Nystatin SUSP] 5 ml PO QID #280 ml 09/03/17 Unknown Rx Ondansetron [Zofran Odt] 4 mg PO Q8H PRN #10 tab.rapdis 09/03/17 Unknown Rx Ondansetron [Zofran Odt] 4 mg PO Q8HR PRN #14 tab.rapdis 02/08/18 Unknown Rx oxyCODONE /ACETAMINOPHEN [Percocet 1 tab PO Q6HR PRN #10 tablet 02/08/18 Unknown Rx 5/325] ED Physical Exam - General Limitations: No Limitations General appearance: alert, in no apparent distress - Head Head exam: Present: atraumatic, normocephalic, normal inspection - Eye Eye exam: Present: normal appearance - ENT ENT exam: Present: normal exam, normal orophraynx, mucous membranes moist - Respiratory Respiratory exam: Present: normal lung sounds bilaterally. Absent: respiratory distress, wheezes, rales, chest wall tenderness, accessory muscle use, decreased breath sounds, prolonged expiratory - Cardiovascular Cardiovascular Exam: Present: tachycardia - GI/Abdominal GI/Abdominal exam: Present: soft, normal bowel sounds, other (PEG tube in place , with mild erythema and greenish discharge.). Absent: distended, tenderness, guarding, rebound, rigid, organomegaly, mass, bruit, pulsatile mass, hernia - Extremities Exam Extremities exam: Present: normal inspection, full ROM, normal capillary refill - Back Exam Back exam: Present: normal inspection, full ROM. Absent: tenderness, CVA tenderness (R), CVA tenderness (L) - Neurological Exam Neurological exam: Present: alert, oriented X3, CN II-XII intact, normal gait, reflexes normal - Skin Skin exam: Present: warm, intact, normal color ED Course Vital Signs 07/07/18 07/08/18 15:53 02:23 Temperature 100.3 F H Pulse Rate 118 H Respiratory 18 20 Rate Blood Pressure 123/81 O2 Sat by Pulse 99 98 Oximetry - Reevaluation(s) Reevaluation #1: 07/08/18 04:44 Patient stated that he is feeling much better. I advised him to follow up with his infectious disease doctor in the next 2-3 days. And I also advised him to follow-up with his GI doctor in the next 2-3 days. ED Medical Decision Making - Lab Data Result diagrams: 07/07/18 23:10 07/07/18 23:10 Critical care attestation.: If time is entered above; I have spent that time in minutes in the direct care of this critically ill patient, excluding procedure time. ED Disposition Clinical Impression: Abdominal pain, History of HIV infection, Cellulitis Disposition: DC-01 TO HOME OR SELFCARE Is pt being admited?: No Condition: Stable Instructions: Abdominal Pain (ED), Cellulitis (ED) Referrals: PRIMARY CARE, [Primary Care Provider] - 3-5 Days
[2018-07-07 23:39] LABS: Hematocrit 33.2 % (35.5-45.6); Hemoglobin 10.8 gm/dl (11.8-15.2); Mean Corpuscular HGB Conc 33 % (32-34); Mean Corpuscular Volume 74 fl (84-94); Platelet Count 200 K/mm3 (140-440); Red Blood Count 4.47 M/mm3 (3.65-5.03); Red Cell Distribution Width 17.7 % (13.2-15.2)
[2018-07-07 23:47] LABS: INR 0.86 (0.87-1.13)
[2018-07-07 23:51] LABS: Alanine Aminotransferase 19 units/L (7-56); BUN/Creatinine Ratio 17; Blood Urea Nitrogen 17 mg/dL (9-20); Calcium 9.4 mg/dL (8.4-10.2); Hemolysis Index 63
[2018-07-07 23:52] LABS: Mean Corpuscular Hemoglobin 24 pg (28-32)
[2018-07-08] MEDS ORDERED: XYLOCAINE 1% MPF 5 mL INFILTRATI ONE (01:29)
[2018-07-08] MEDS ORDERED: ROCEPHIN IM ONE (01:29)
[2018-07-08 01:30] LABS: Lymphocytes % (Auto) 28.4 % (13.4-35.0)
[2018-07-08 01:31] LABS: Basophils % (Auto) 0.9 % (0.0-1.8); Eosinophils # (Auto) 0.1 K/mm3 (0.0-0.4); Eosinophils % (Auto) 2.5 % (0.0-4.3); Lymphocytes # (Auto) 0.9 K/mm3 (1.2-5.4); Monocytes # (Auto) 0.3 K/mm3 (0.0-0.8); Monocytes % (Auto) 11.2 % (0.0-7.3)
[2018-07-08] MEDS ORDERED: BANOPHEN PO ONE (01:41)
[2018-07-08 01:46] LABS: Bacteria,Urine 1+ /HPF (Negative); Bilirubin,Urine NEG (Negative); Blood,Urine NEG (Negative); Color,Urine Yellow (Yellow); Mucus,Urine 1+ /HPF
[2018-07-08 01:54] LABS: Basophils % (Manual) 0 % (0.0-1.8); Hypochromasia 1+; Total Cells Counted 100
[2018-07-08 01:55] LABS: Anisocytosis 1+; Platelet Estimate Consistent w Auto
[2018-07-08] MEDS ORDERED: SUBLIMAZE IV ONE (04:36)
== END 2018-07-08 05:02 | disposition home or self-care (01) ==
LOC: ED 15:50
DX: L03.90 Cellulitis, unspecified (principal); R10.13 Epigastric pain; I26.99 Other pulmonary embolism without acute cor pulmonale; F17.200 Nicotine dependence, unspecified, uncomplicated; Z88.1 Allergy status to other antibiotic agents; Z88.8 Allergy status to other drugs, medicaments and biological substances; Z88.5 Allergy status to narcotic agent
CPT/HCPCS: 36415; 71045; 80053; 81001; 82140; 82805; 83690; 85007; 85025; 85610; 87040; 87086; 93005; 93010; 96372; 96374; 96375; 99284; J0696; J2405; J3010; J2543; Q0163

== ENCOUNTER 2019-03-08 19:33 | Inpatient (IN) | payer MEDICAID ==
--- NOTE | 2019-03-08 21:13 | Emergency Department Report ---
Blank Doc - Documentation Documentation: 34 y/o ,AIDS PCP comes in with black tarry stool. Has a hx/o GI bleeds. Start on meds.
[2019-03-08 23:27] LABS: Alanine Aminotransferase 20 units/L (7-56); BUN/Creatinine Ratio 13; Blood Urea Nitrogen 10 mg/dL (9-20); Calcium 9.6 mg/dL (8.4-10.2); Hemolysis Index 22
[2019-03-08 23:34] LABS: INR 0.92 (0.87-1.13)
[2019-03-08 23:35] LABS: Partial Thromboplastin Time 25.9 Sec. (24.2-36.6)
[2019-03-09 01:00] LABS: Basophils # (Auto) 0.1 K/mm3 (0.0-0.1); Basophils % (Auto) 1.1 % (0.0-1.8); Eosinophils # (Auto) 0.1 K/mm3 (0.0-0.4); Eosinophils % (Auto) 1.5 % (0.0-4.3); Hematocrit 32.3 % (35.5-45.6); Hemoglobin 10.7 gm/dl (11.8-15.2); Lymphocytes # (Auto) 2.4 K/mm3 (1.2-5.4); Lymphocytes % (Auto) 32.5 % (13.4-35.0); Mean Corpuscular HGB Conc 33 % (32-34); Mean Corpuscular Volume 76 fl (84-94); Monocytes # (Auto) 0.9 K/mm3 (0.0-0.8); Monocytes % (Auto) 11.7 % (0.0-7.3); Platelet Count 227 K/mm3 (140-440); Red Blood Count 4.23 M/mm3 (3.65-5.03)
[2019-03-09 01:04] LABS: Red Cell Distribution Width 22.2 % (13.2-15.2)
--- NOTE | 2019-03-09 01:06 | XRay Report ---
PROCEDURE: XR CHEST ROUTINE 2V TECHNIQUE: PA and lateral views of the chest were submitted. HISTORY: Hemophilus COMPARISONS: 07/07/2018 FINDINGS: There is extensive bilateral airspace disease. Pleural fluid is not seen. The heart size is normal. T he bones and soft tissues do not show any acute changes. IMPRESSION: Bilateral airspace disease suspicious for bilateral pneumonia.. This document is electronically signed by Patric Garcia MD., March 09 2019 01:04:09 AM ET
--- NOTE | 2019-03-09 02:41 | Emergency Department Report ---
HPI - General Chief Complaint: GI Bleed Time Seen by Provider: 03/09/19 02:22 - HPI HPI: Room 32--> 7 The patient is a 34-year-old male presenting with a chief complaint of cough and dyspnea on exertion. The patient is HIV positive and states his last CD4 count was "in the 30s" approximately 2 months ago. The patient states he's had dyspnea on exertion for several days. The patient states he had a cough productive of yellow sputum for the past 3 days and then last night he began coughing up blood. Patient states she is also had rectal bleeding with bowel movements (patient has a history of internal hemorrhoid and a similar presentation in the past). Patient denies history of fever Location: [See above] Duration: Days Quality: [See above] Severity: [See above] Modifying factors: [see above] Context: [see above] Mode of transportation: [not driving] ED Past Medical Hx - Past Medical History Hx Pulmonary Embolism: Yes (pneumothorax) Hx HIV: Yes Additional medical history: PCP pneumonia (2009), gastric ulcers - Surgical History Additional Surgical History: BILATERAL knee surg, chest tube. PEG tube - Family History Family history: no significant - Social History Smoking Status: Current Every Day Smoker (1/2 pack per day) Substance Use Type: None (denies illicit drug use), Alcohol (daily) - Medications Home Medications: Home Medications Medication Instructions Recorded Confirmed Last Taken Type Darunavir Ethanolate [Prezista] 75 mg PO QDAY 01/24/16 02/28/17 02/27/17 History Ritonavir [Norvir] 100 mg PO QDAY 01/24/16 02/28/17 02/27/17 History Dolutegravir Sodium [Tivicay] 1 tab PO DAILY 02/28/17 02/28/17 02/27/17 History Ciprofloxacin HCl [Ciprofloxacin 500 mg PO Q12H #10 tab 03/01/17 Unknown Rx TAB] Docusate Sodium [Colace] 100 mg PO BID PRN #14 capsule 03/01/17 Unknown Rx HYDROmorphone [Dilaudid] 1 mg PO Q12H #10 tablet 03/01/17 Unknown Rx Hydrocortisone [Anucort-HC SUPPOS] 25 mg RC BID #14 supp.rect 03/01/17 Unknown Rx guaiFENesin/DEXTROMETHORPHAN 1 each PO TID PRN #15 capsule 03/01/17 Unknown Rx [Robitussin Qcrjv-Zwidd-Xpdc Dm] HYDROcodone/APAP 5-325 [[place] 1 each PO Q6HR PRN #10 tablet 09/03/17 Unknown Rx 5/325] Nystatin [Nystatin SUSP] 5 ml PO QID #280 ml 09/03/17 Unknown Rx Ondansetron [Zofran Odt] 4 mg PO Q8H PRN #10 tab.rapdis 09/03/17 Unknown Rx Ondansetron [Zofran Odt] 4 mg PO Q8HR PRN #14 tab.rapdis 02/08/18 Unknown Rx oxyCODONE /ACETAMINOPHEN [Percocet 1 tab PO Q6HR PRN #10 tablet 02/08/18 Unknown Rx 5/325] Clindamycin [Clindamycin CAP] 300 mg PO Q8H #21 cap 07/08/18 Unknown Rx Nystatin [Nystatin SUSP] 5 ml PO QID #280 ml 07/08/18 Unknown Rx Ondansetron [Zofran Odt] 4 mg PO Q8HR PRN #14 tab.rapdis 07/08/18 Unknown Rx oxyCODONE /ACETAMINOPHEN [Percocet 1 tab PO Q6HR PRN #10 tablet 07/08/18 Unknown Rx 5/325] ED Review of Systems ROS: Stated complaint: ABD PAIN RECTAL BLEED VOMITTING Other details as noted in HPI Constitutional: denies: fever Eyes: denies: eye pain ENT: denies: throat pain Respiratory: cough, SOB with exertion, other (hemoptysis) Cardiovascular: denies: chest pain Endocrine: no symptoms reported Gastrointestinal: hematochezia Genitourinary: denies: dysuria Musculoskeletal: denies: back pain Neurological: denies: headache Physical Exam - Physical Exam Vital Signs: Vital Signs 03/08/19 03/08/19 19:42 21:08 Temperature 98.3 F 98.3 F Pulse Rate 74 71 Respiratory 18 18 Rate Blood Pressure 138/89 138/89 O2 Sat by Pulse 100 100 Oximetry Physical Exam: GENERAL: The patient is well-developed well-nourished male sitting on stretcher not appearing to be in acute distress. [] HEENT: Normocephalic. Atraumatic. Extraocular motions are intact. Patient has moist mucous membranes. NECK: Supple. Trachea midline CHEST/LUNGS: Clear to auscultation. There is no respiratory distress noted. HEART/CARDIOVASCULAR: Regular. There is no tachycardia. There is no gallop rub or murmur. ABDOMEN: Abdomen is soft, nontender. Patient has normal bowel sounds. There is no abdominal distention. SKIN: There is no rash. There is no edema. There is no diaphoresis. NEURO: The patient is awake, alert, and oriented. The patient is cooperative. The patient has normal speech MUSCULOSKELETAL: There is no evidence of acute injury. ED Course Vital Signs 03/08/19 03/08/19 19:42 21:08 Temperature 98.3 F 98.3 F Pulse Rate 74 71 Respiratory 18 18 Rate Blood Pressure 138/89 138/89 O2 Sat by Pulse 100 100 Oximetry ED Medical Decision Making - Lab Data Result diagrams: 03/09/19 00:50 03/08/19 22:36 Laboratory Tests 03/08/19 03/08/19 03/09/19 22:36 22:36 00:50 WBC 7.3 RBC 4.23 Hgb 10.7 L Hct 32.3 L MCV 76 L MCH 25 L MCHC 33 RDW 22.2 H Plt Count 227 Lymph % (Auto) 32.5 [place] % (Auto) 11.7 H Eos % (Auto) 1.5 Baso % (Auto) 1.1 Lymph # 2.4 [place] # 0.9 H Eos # 0.1 Baso # 0.1 Seg Neutrophils % 53.2 Seg Neutrophils # 3.9 PT 12.9 INR 0.92 APTT 25.9 Sodium 138 Potassium 3.8 Chloride 101.2 Carbon Dioxide 23 Anion Gap 18 BUN 10 Creatinine 0.8 Estimated GFR > 60 BUN/Creatinine Ratio 13 Glucose 92 Calcium 9.6 Total Bilirubin < 0.20 AST 21 ALT 20 Alkaline Phosphatase 88 Lactate Dehydrogenase 327 H Total Protein 8.2 Albumin 4.0 Albumin/Globulin Ratio 1.0 - Radiology Data Radiology results: report reviewed (chest x-ray), image reviewed (chest x-ray) interpreted by me: Chest [id number] airspace disease. No pneumothorax [facility] [address] [place] [address] XRay Report Signed Patient: DELFINO DAVIS MR#: [id number] : 1985 Acct:[id number] Age/Sex: 34 / M ADM Date: 03/08/19 Loc: ED Attending Dr: Ordering Physician: SHEREEN CAVANAUGH Date of Service: 03/09/19 Procedure(s): XR chest routine 2V Accession Number(s): [id number] cc: SHEREEN CAVANAUGH Fluoro Time In Minutes: PROCEDURE: XR CHEST ROUTINE 2V TECHNIQUE: PA and lateral views of the chest were submitted. HISTORY: Hemophilus COMPARISONS: 07/07/2018 FINDINGS: There is extensive bilateral airspace disease. Pleural fluid is not seen. The heart size is normal. The bones and soft tissues do not show any acute changes. IMPRESSION: Bilateral airspace disease suspicious for bilateral pneumonia.. This document is electronically signed by Suly Garcia MD., March 09 2019 01:04:09 AM ET Transcribed By: RB Dictated By: SULY GARCIA MD Electronically Authenticated By: SULY GARCIA MD Signed Date/Time: 03/09/19105 DD/ TD/TT: 03/09/19 0100 - Differential Diagnosis PCP Critical care attestation.: If time is entered above; I have spent that time in minutes in the direct care of this critically ill patient, excluding procedure time. ED Disposition Clinical Impression: Bilateral pneumonia, Dyspnea on exertion Disposition: OP ADMIT IP TO THIS HOSP Is pt being admited?: Yes Does the pt Need Aspirin: No Condition: Fair Instructions: Bacterial Pneumonia (ED) Referrals: KYLER WEINSTEIN MD [Primary Care Provider] - 3-5 Days Forms: Accompanied Note Time of Disposition: 03:22 (hospitalist paged (Dr Millicent Wilde))
[2019-03-09] MEDS ORDERED: PERCOCET 5/325 PO PRN (04:38)
[2019-03-09] MEDS ORDERED: TYLENOL PO PRN (04:38)
[2019-03-09] MEDS ORDERED: OXYCODONE HCL PO PRN (04:44)
--- NOTE | 2019-03-09 04:45 | History and Physical Report ---
History of Present Illness Date of examination: 03/09/19 History of present illness: 30 y.o. man history of HIV, internal hemorrhoids came to the emergency room with a cough which was colored sputum, chills 3 days. Also complaining of Pain on the bilateral upper sites, upper abdominal pain, described as throbbing, constant, intensity 5/10, no radiation, cannot identify exacerbating or relieving factors. As blood on the toilet tissue when he wipes. He stated that his CD4 count is above 58 stopped taking his medication but he has started back on his HIV medication recently Review of systems Constitutional: no weight loss, fever Ears, eyes, nose, mouth and throat: no nasal congestion, no nasal discharge, no sinus pressure, no vision change, no red eye. Neck: No neck pain or rigidity. Cardiovascular: no palpitations,+ chest pain Respiratory: no cough, shortness of breath Gastrointestinal: no hematochezia, +abdominal pain Genitourinary : no frequency , no hematuria Musculoskeletal: no joint swelling or muscle ache Integumentary: no rash, no pruritis Neurological: no parathesias, no focal weakness Endocrine: no cold or heat intolerance, no polyuria or polydipsia Hematologic/Lymphatic: no easy bruising, no easy bleeding, no gland swelling Allergic/Immunologic: no urticaria, no angioedema. PAST SURGICAL HISTORY: Bilateral knee surgery, IVC filter SOCIAL HISTORY: Smokes half pack a day, drinks 8 beers a day, no drug FAMILY HISTORY: Hypertension Medications and Allergies Allergies Allergy/AdvReac Type Severity Reaction Status Date / Time azithromycin Allergy Swelling Verified 01/24/16 16:22 Iodinated Contrast- Oral and Allergy Hives Verified 03/09/19 17:16 IV Dye ketorolac tromethamine Allergy Rash Verified 01/24/16 16:22 [From Toradol] metoclopramide HCl Allergy Hives Verified 01/24/16 16:22 [From Reglan] morphine Allergy Vomiting Verified 01/24/16 16:22 tramadol Allergy Hives Verified 01/24/16 16:22 Home Medications Medication Instructions Recorded Confirmed Last Taken Type Oxycodone HCl [Oxycontin] 1 tab PO Q6HR PRN 03/09/19 03/09/19 Unknown History Pantoprazole [Protonix TAB] 1 tab PO BID 03/09/19 03/09/19 Unknown History Active Meds: Active Medications Acetaminophen (Tylenol) 650 mg PO Q4H PRN PRN Reason: Pain MILD(1-3)/Fever >100.5/BENNETT Ceftriaxone Sodium (Rocephin/Ns 1 Gm/50 Ml) 1 gm in 50 mls @ 100 mls/hr IV Q24HR TALITA; Protocol Ondansetron HCl (Zofran) 4 mg IV Q8H PRN PRN Reason: Nausea And Vomiting Oxycodone/Acetaminophen (Percocet 5/325) 1 tab PO Q4H PRN PRN Reason: Pain, Moderate (4-6) Sodium Chloride (Sodium Chloride Flush Syringe 10 Ml) 10 ml IV BID TALITA Sodium Chloride (Sodium Chloride Flush Syringe 10 Ml) 10 ml IV PRN PRN PRN Reason: LINE FLUSH Exam - Physical Exam Narrative exam: Gen. appearance: Patient lying in bed, no apparent distress HEENT: Normocephalic, atraumatic, pupils equally round and reactive to light, extraocular movement intact, and no sclericterus,. No JVD or thyromegaly or nodule,neck supple, no carotid bruit ,mucous membranes moist, no exudate or erythema Heart: S1, S2, regular rate and rhythm Lungs: Clear to auscultation bilaterally, breathing comfortable Abdomen: Positive bowel sounds, nontender, nondistended, no organomegaly Extremity: No edema, cyanosis, clubbing Skin: No rash, nodules, warm, dry Neuro: Oriented 3, cranial nerves II-12 intact, speech is fluent, motor and sensory intact - Constitutional Vitals: Temp Pulse Resp BP Pulse Ox 98.2 F 75 14 128/89 98 03/09/19 03:28 03/09/19 03:28 03/09/19 03:28 03/09/19 03:28 03/09/19 03:28 Results - Labs CBC & Chem 7: 03/16/19 17:15 03/16/19 04:47 Labs: Abnormal lab results 03/08/19 03/09/19 Range/Units 22:36 00:50 Hgb 10.7 L (11.8-15.2) gm/dl Hct 32.3 L (35.5-45.6) % MCV 76 L (84-94) fl MCH 25 L (28-32) pg RDW 22.2 H (13.2-15.2) % [place] % (Auto) 11.7 H (0.0-7.3) % [place] # 0.9 H (0.0-0.8) K/mm3 Lactate Dehydrogenase 327 H (91-180) units/L - Imaging and Cardiology Chest x-ray: report reviewed Assessment and Plan Assessment Bilateral pneumonia, community acquired versus PCP Rectal bleed due to internal hemorrhoids Abdominal pain HIV Plan Admit to medicine Start IV Rocephin, Bactrim Consult infectious disease, case discussed with Dr. Johnson DVT prophylaxis,start outpatient medications
[2019-03-09] MEDS: BACTRIM DS PO SCH ×2 (04:59→11:44)
[2019-03-09 05:15] LABS: Hematocrit 28.1 % (35.5-45.6); Mean Corpuscular HGB Conc 32 % (32-34); Mean Corpuscular Volume 77 fl (84-94); Red Blood Count 3.65 M/mm3 (3.65-5.03)
[2019-03-09 05:16] LABS: Platelet Count 207 K/mm3 (140-440); Red Cell Distribution Width 24.5 % (13.2-15.2)
[2019-03-09 06:03] LABS: Anisocytosis 2+; Band Neutrophils # (Manual) 0.1 K/mm3; Basophils % (Manual) 0 % (0.0-1.8); Burr Cells 1+; Hypochromasia 1+; Poikilocytosis 2+; Total Cells Counted 100
[2019-03-09 06:04] LABS: Ovalocytes 1+; Platelet Estimate Consistent w Auto
[2019-03-09] MEDS: ROXICODONE PO PRN ×2 (06:12→11:44)
[2019-03-09 06:45] LABS: BUN/Creatinine Ratio 11; Blood Urea Nitrogen 9 mg/dL (9-20); Hemolysis Index 27
--- NOTE | 2019-03-09 09:14 | Event Note ---
Date: 03/09/19 Patient with HIV infection, presents with chest pain, abd pain, bleeding per rectum, vomiting with some blood. CXR shows pneumonia. I have seen and examined him today. Will change Protonix to iv. Consult GI. Check H/H Q 8h
[2019-03-09] MEDS ORDERED: PROTONIX PO SCH (10:00)
[2019-03-09 10:08] LABS: Bilirubin,Urine NEG (Negative); Blood,Urine NEG (Negative); Color,Urine Yellow (Yellow); Mucus,Urine FEW /HPF; Protein,Urine <15 mg/dL mg/dL (Negative); Urobilinogen,Urine < 2.0 mg/dL (<2.0)
[2019-03-09] MEDS: ZOFRAN IV PRN ×2 (10:30→19:40)
--- NOTE | 2019-03-09 10:59 | Consultation ---
History of Present Illness - Reason for Consult Consult date: 03/09/19 PNA, HIV Requesting physician: JACQUELYN ARCINIEGA - History of Present Illness This patient is a [id number]-fko-male with a past medical history of PCP pneumonia 2010, gastric ulcers, pneumothroax Gr II internal hemorrhoids and HIV. Review of medical records at [facility] reveals CD4 count 32 and VL >350,000 in 2015. The patient is noncompliant on HIV therapy with refractory vito infection re quiring micafungin during past admissions. The patient presented in the ED on 03/09/19 with a chief complaint of cough and dyspnea o exertion. He states that his last CD4 dount was in the low 30's 2 months ago. Upon further evaluation, he states that he has had a dough productive of yellow sputum for the past 3 days and last night he began coughing up blood. He allso amitis to rectal bleeding with bowel movements. On admission WBC 7.3, Creatinine 0.8, Temperature 98.3, HR 74, BP 138/89. U/A is not consistent with a UTI Chest xray shows bilateral airspace disease suspicious for bilateral pneumonia. Patient states that he has been non-compliant with his HIV antiretroviral medication up until 2 months ago. He now sees Dr. Bar at [facility] and has been taking Triumeg without complications. His last CD4 count in the office was in the 60's range and his viral load was more than 1 million. Review of Systems: General: no fever, chills, nightsweats, unintentional weight change, or change in appetite Cutaneous: no rash, pruritus Head: no headaches or injury Eyes: no changes in vision, eye pain, double vision Ears: no ear pain, ear discharge, ringing or hearing loss Nose: no nose bleeding, stuffiness Mouth & throat: no bleeding gums, no horseness, no dental problems, or swollen glands Neck: no pain, node enlargement/lumps, tyroid enlargement or tenderness Respiratory: + cough,, pleuritic chest pain , SOB on exertion Cardiovascular: no chest pain, leg edema, cyanosis, KEITH, orthopnea Musculoskeletal: no decreased joint motion, bone or joint pain, joint swelling, muscle aches Gastrointestinal: + nausea,, + hemoptysis, + rectal bleeding Genitourinary/Reproductive: no frequent urination, no dysuria, hematuria, incontinence Neurogical: no seizures, no headaches, no weakness, no paresthesias, no loss of speech or vision, no memory loss Psychiatric: stable mood; no excessive anxiety, sadness or moodiness Medications and Allergies Allergies Allergy/AdvReac Type Severity Reaction Status Date / Time azithromycin Allergy Swelling Verified 01/24/16 16:22 ketorolac tromethamine Allergy Rash Verified 01/24/16 16:22 [From Toradol] metoclopramide HCl Allergy Hives Verified 01/24/16 16:22 [From Reglan] morphine Allergy Vomiting Verified 01/24/16 16:22 tramadol Allergy Hives Verified 01/24/16 16:22 Home Medications Medication Instructions Recorded Confirmed Last Taken Type oxyCODONE /ACETAMINOPHEN [Percocet 1 tab PO Q6HR PRN #10 tablet 07/08/18 Unknown Rx 5/325] Oxycodone HCl [Oxycontin] 1 tab PO Q6HR PRN 03/09/19 03/09/19 Unknown History Pantoprazole [Protonix TAB] 1 tab PO BID 03/09/19 03/09/19 Unknown History Active Meds: Active Medications Acetaminophen (Tylenol) 650 mg PO Q4H PRN PRN Reason: Pain MILD(1-3)/Fever >100.5/BENNETT Ceftriaxone Sodium (Rocephin/Ns 1 Gm/50 Ml) 1 gm in 50 mls @ 100 mls/hr IV Q24H TALITA; Protocol Ondansetron HCl (Zofran) 4 mg IV Q8H PRN PRN Reason: Nausea And Vomiting Oxycodone HCl (Roxicodone) 30 mg PO Q6H PRN PRN Reason: Pain , Severe (7-10) Last Admin: 03/09/19 06:12 Dose: 30 mg Documented by: Pantoprazole Sodium (Protonix) 40 mg IV BID TALITA Sodium Chloride (Sodium Chloride Flush Syringe 10 Ml) 10 ml IV BID TALITA Sodium Chloride (Sodium Chloride Flush Syringe 10 Ml) 10 ml IV PRN PRN PRN Reason: LINE FLUSH Trimethoprim/Sulfamethoxazole (Bactrim Ds) 1 each PO Q12HR TALITA Last Admin: 03/09/19 04:59 Dose: 1 each Documented by: Physical Examination - Physical Exam Narrative exam: Constitutional: Alert, cooperative. No acute distress Head, Ears, Nose: Normocephalic, atraumatic. External ears, nose normal Eyes: Conjunctivae/corneas clear. No icterus. No ptosis. Neck: Supple, no meningeal signs Oral: dentition good, no thrush. Cardiovascular: S1, S2 normal. Respiratory: Good air entry, clear to auscultation bilaterally, + SOB on exertion , + pleuritic chest pain GI: Soft, non-tender; bowel sounds normal., + rectal bleeding Musculoskeletal: No pedal edema, no cyanosis. Skin: No rash or abscess. + tattoos Hem/Lymphatic: No palpable cervical or supraclavicular nodes. No lymphangitis Psych: Mood ok. Affect normal Neurological: Awake, alert, oriented. G - Constitutional Vitals: Vital Signs Temp Pulse Resp BP Pulse Ox 98.2 F 63 16 123/84 98 03/09/19 03:28 03/09/19 05:00 03/09/19 06:12 03/09/19 05:00 03/09/19 05:53 Temperature -Last 24 Hours Temperature 98.2 F Temperature 98.3 F Temperature 98.3 F Results - Labs CBC & Chem 7: 03/09/19 12:36 03/09/19 05:47 Labs: Abnormal lab results 03/08/19 03/09/19 03/09/19 Range/Units 22:36 00:50 04:52 Hgb 10.7 L 9.0 L (11.8-15.2) gm/dl Hct 32.3 L 28.1 L (35.5-45.6) % MCV 76 L 77 L (84-94) fl MCH 25 L 25 L (28-32) pg RDW 22.2 H 24.5 H (13.2-15.2) % Marin % (Auto) 11.7 H (0.0-7.3) % Marin # 0.9 H (0.0-0.8) K/mm3 Monocytes % (Manual) 10.0 H (0.0-7.3) % Eosinophils % (Manual) 5.0 H (0.0-4.3) % Glucose (75-100) mg/dL Lactate Dehydrogenase 327 H (91-180) units/L 03/09/19 Range/Units 05:47 Hgb (11.8-15.2) gm/dl Hct (35.5-45.6) % MCV (84-94) fl MCH (28-32) pg RDW (13.2-15.2) % Marin % (Auto) (0.0-7.3) % Marin # (0.0-0.8) K/mm3 Monocytes % (Manual) (0.0-7.3) % Eosinophils % (Manual) (0.0-4.3) % Glucose 101 H (75-100) mg/dL Lactate Dehydrogenase (91-180) units/L - Imaging and Cardiology Chest x-ray: report reviewed (There is extensive bilateral airspace disease. Pleural fluid is not seen. ) Assessment and Plan Cultures: no cultures drawn A/P: [id number]-wpe-male with a past medical history of PCP pnuemonia 2009, gastric ulcers, pneumothroax Gr II internal hemorrhoids and HIV. Review of medical records at [facility] reveals CD4 count 32 and VL >350,000 in 2014.. He states that his last CD4 count was in the low 30's 2 months ago.The patient is noncompliant on HIV therapy with refractory vito infection requiring micafungin during past admissions. Now admitted with: 1. Community Acquired Pneumonia vs PCP: productive cough for the past 3 days with yellow sputum, yesterday began coughing up blood. Chest xray shows extensive bilateral airspace disease. Pleural fluid is not seen. No fever or Leukocytosis. Currently being treated with Bactrim and Ceftriaxone. 2. HIV: Taking Triumeg, Dr. Bar, [facility]. Review of medical records at [facility] reveals CD4 count 32 and VL >350,000 in 2014. Current CD4 count 60's and VL > 1 million 2 months ago. Triumeg non-formulary, will start Epivir and Tivicay. 3. Rectal Bleeding: due to internal hemorrhoids: Recommend GI consult Plan: -order HIV RNA and Lymphocyte subset panel 2 -Order Cryptoccocal serum antigen and, Streptoccocus Pneumoniae urinary antigen, Legionella Antigen, EIA, Serum , Serum 1, 3, Beta d glucan, -order induced sputum for PJP DFA -Continue Ceftriaxone -Switch to IV Bactrim -start Epivir and Tivicay- Triumeg non-formulary -obtain Chest CT w/contrast -f/u GI consult D/w Dr. Camron De León, [employer] [facility] M: [id number] O:[phone]
[2019-03-09] MEDS: SODIUM CHLORIDE FLUSH SYRINGE 10 ML IV SCH ×2 (11:44→21:29)
[2019-03-09] MEDS: PROTONIX IV SCH ×2 (11:44→21:28)
--- NOTE | 2019-03-09 12:30 | Gastroenterology Consultation ---
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 Upon admission, CXR showed suspicion for bilateral pneumonia to which he was admitted. ID following. He also had c/o rectal bleeding with BMs and vomiting up blood tinged emesis to which GI has been consulted. Patient is well known to our service and has had multiple prior admissions (at multiple hospitals) for similar symptoms undergoing multiple previous scopes (EGDs/colonoscopies/flex sigmoidoscopies; ~20 since 2012). He was last seen by our group at [facility] 2 months ago for for hematemesis/hematochezia and underwent an EGD on 01/27/19 that showed severe vito esophagitis (stomach and duodenum normal). His last colonoscopy was 07/15/2018 (by [facility]) that showed moderate internal hemorrhoids. This morning patient was resting in bed w/o acute distress. He reports vomiting of bright red blood tinged emesis x 2 days with last episode this am and scant amount of bright red blood with BMs. Admits to some mild associated epigastric pain but denies fever, wt loss, CP, rectal pain/trauma, melena, diarrhea, or constipation. Drinks 6-7 beers/day and takes frequent Goody's powder at home for pain. Upon exam, there was an emesis bag at bedside with clear/blood tinged emesis and rectal exam revealed light brown stool with scant amount of bright red blood (spray gun repairer present during exam-Katie HOPPER). Past History Past Medical History: other (as per HPI) Past Surgical History: Other (knee surgery, IVC filter, s/p PEG and removal, prior chest tube) Social history: smoking, alcohol abuse Family history: hypertension Medications and Allergies Allergies Allergy/AdvReac Type Severity Reaction Status Date / Time azithromycin Allergy Swelling Verified 01/24/16 16:22 Iodinated Contrast- Oral and Allergy Hives Verified 03/09/19 17:16 IV Dye ketorolac tromethamine Allergy Rash Verified 01/24/16 16:22 [From Toradol] metoclopramide HCl Allergy Hives Verified 01/24/16 16:22 [From Reglan] morphine Allergy Vomiting Verified 01/24/16 16:22 tramadol Allergy Hives Verified 01/24/16 16:22 Home Medications Medication Instructions Recorded Confirmed Last Taken Type oxyCODONE /ACETAMINOPHEN [Percocet 1 tab PO Q6HR PRN #10 tablet 07/08/18 Unknown Rx 5/325] Oxycodone HCl [Oxycontin] 1 tab PO Q6HR PRN 03/09/19 03/09/19 Unknown History Pantoprazole [Protonix TAB] 1 tab PO BID 03/09/19 03/09/19 Unknown History Active Meds: Active Medications Acetaminophen (Tylenol) 650 mg PO Q4H PRN PRN Reason: Pain MILD(1-3)/Fever >100.5/BENNETT Ceftriaxone Sodium (Rocephin/Ns 1 Gm/50 Ml) 1 gm in 50 mls @ 100 mls/hr IV Q24H [facility]; Protocol Ondansetron HCl (Zofran) 4 mg IV Q8H PRN PRN Reason: Nausea And Vomiting Oxycodone HCl (Roxicodone) 30 mg PO Q6H PRN PRN Reason: Pain , Severe (7-10) Last Admin: 03/09/19 11:44 Dose: 30 mg Documented by: Pantoprazole Sodium (Protonix) 40 mg IV BID [facility] Last Admin: 03/09/19 11:44 Dose: 40 mg Documented by: Sodium Chloride (Sodium Chloride Flush Syringe 10 Ml) 10 ml IV BID [facility] Last Admin: 03/09/19 11:44 Dose: 10 ml Documented by: Sodium Chloride (Sodium Chloride Flush Syringe 10 Ml) 10 ml IV PRN PRN PRN Reason: LINE FLUSH Trimethoprim/Sulfamethoxazole (Bactrim Ds) 1 each PO Q12HR [facility] Last Admin: 03/09/19 11:44 Dose: 1 each Documented by: medications reviewed/updated as required Review of Systems - Review of Systems All systems: negative Respiratory: cough, shortness of breath, other (hemoptysis) Gastrointestinal: abdominal pain (epigastric), vomiting, hematemesis, hematochezia Exam - Constitutional Vital Signs: Temp Pulse Resp BP Pulse Ox 98.2 F 73 18 127/94 97 03/09/19 11:36 03/09/19 11:36 03/09/19 11:36 03/09/19 11:36 03/09/19 11:36 General appearance: no acute distress - EENT Eyes: PERRL, EOM intact ENT: hearing intact - Respiratory Respiratory: bilateral: diminished - Cardiovascular Rhythm: regular - Gastrointestinal General gastrointestinal: Present: soft, tender (slight TTP in epigastric area), non-distended, normal bowel sounds Rectal Exam: other (brown stool, scant amount of bright red blood) - Neurologic Neurological: alert and oriented x3 - Labs CBC & Chem 7: 03/09/19 12:36 03/09/19 05:47 Lab Results: Laboratory Results - last 24 hr 03/08/19 03/08/19 03/09/19 22:36 22:36 00:50 WBC 7.3 RBC 4.23 Hgb 10.7 L Hct 32.3 L MCV 76 L MCH 25 L MCHC 33 RDW 22.2 H Plt Count 227 Lymph % (Auto) 32.5 [place] % (Auto) 11.7 H Eos % (Auto) 1.5 Baso % (Auto) 1.1 Lymph # 2.4 [place] # 0.9 H Eos # 0.1 Baso # 0.1 Add Manual Diff Total Counted Seg Neutrophils % 53.2 Seg Neuts % (Manual) Band Neutrophils % Lymphocytes % (Manual) Reactive Lymphs % (Man) Monocytes % (Manual) Eosinophils % (Manual) Basophils % (Manual) Metamyelocytes % Myelocytes % Promyelocytes % Blast Cells % Nucleated RBC % Seg Neutrophils # 3.9 Seg Neutrophils # Man Band Neutrophils # Lymphocytes # (Manual) Abs React Lymphs (Man) Monocytes # (Manual) Eosinophils # (Manual) Basophils # (Manual) Metamyelocytes # Myelocytes # Promyelocytes # Blast Cells # WBC Morphology Hypersegmented Neuts Hyposegmented Neuts Hypogranular Neuts Smudge Cells Toxic Granulation Toxic Vacuolation Dohle Bodies Pelger-Huet Anomaly Marco A Rods Platelet Estimate Clumped Platelets Plt Clumps, EDTA Large Platelets Giant Platelets Platelet Satelliting Plt Morphology Comment RBC Morphology Dimorphic RBCs Polychromasia Hypochromasia Poikilocytosis Anisocytosis Microcytosis Macrocytosis Spherocytes Pappenheimer Bodies Sickle Cells Target Cells Tear Drop Cells Ovalocytes Helmet Cells [place] Bodies [place] Rings [place] Cells Bite Cells Crenated Cell Elliptocytes Acanthocytes (Spur) Rouleaux Hemoglobin C Crystals Schistocytes Malaria parasites Sander Bodies Hem Pathologist Commnt PT 12.9 INR 0.92 APTT 25.9 Sodium 138 Potassium 3.8 Chloride 101.2 Carbon Dioxide 23 Anion Gap 18 BUN 10 Creatinine 0.8 Estimated GFR > 60 BUN/Creatinine Ratio 13 Glucose 92 Calcium 9.6 Total Bilirubin < 0.20 AST 21 ALT 20 Alkaline Phosphatase 88 Lactate Dehydrogenase 327 H Total Protein 8.2 Albumin 4.0 Albumin/Globulin Ratio 1.0 Urine Color Urine Turbidity Urine pH Ur Specific [place] Urine Protein Urine Glucose (UA) Urine Ketones Urine Blood Urine Nitrite Urine Bilirubin Urine Urobilinogen Ur Leukocyte Esterase Urine WBC (Auto) Urine RBC (Auto) Urine Mucus 03/09/19 03/09/19 03/09/19 04:52 05:47 10:00 WBC 6.7 RBC 3.65 Hgb 9.0 L Hct 28.1 L MCV 77 L MCH 25 L MCHC 32 RDW 24.5 H Plt Count 207 Lymph % (Auto) [place] % (Auto) Eos % (Auto) Baso % (Auto) Lymph # [place] # Eos # Baso # Add Manual Diff Complete Total Counted 100 Seg Neutrophils % Seg Neuts % (Manual) 56.0 Band Neutrophils % 1.0 Lymphocytes % (Manual) 28.0 Reactive Lymphs % (Man) 0 Monocytes % (Manual) 10.0 H Eosinophils % (Manual) 5.0 H Basophils % (Manual) 0 Metamyelocytes % 0 Myelocytes % 0 Promyelocytes % 0 Blast Cells % 0 Nucleated RBC % Not Reportable Seg Neutrophils # Seg Neutrophils # Man 3.8 Band Neutrophils # 0.1 Lymphocytes # (Manual) 1.9 Abs React Lymphs (Man) 0.0 Monocytes # (Manual) 0.7 Eosinophils # (Manual) 0.3 Basophils # (Manual) 0.0 Metamyelocytes # 0.0 Myelocytes # 0.0 Promyelocytes # 0.0 Blast Cells # 0.0 WBC Morphology Not Reportable Hypersegmented Neuts Not Reportable Hyposegmented Neuts Not Reportable Hypogranular Neuts Not Reportable Smudge Cells Not Reportable Toxic Granulation Not Reportable Toxic Vacuolation Not Reportable Dohle Bodies Not Reportable Pelger-Huet Anomaly Not Reportable Marco A Rods Not Reportable Platelet Estimate Consistent w auto Clumped Platelets Not Reportable Plt Clumps, EDTA Not Reportable Large Platelets Not Reportable Giant Platelets Not Reportable Platelet Satelliting Not Reportable Plt Morphology Comment Not Reportable RBC Morphology Not Reportable Dimorphic RBCs Not Reportable Polychromasia Not Reportable Hypochromasia 1+ Poikilocytosis 2+ Anisocytosis 2+ Microcytosis Not Reportable Macrocytosis Not Reportable Spherocytes Not Reportable Pappenheimer Bodies Not Reportable Sickle Cells Not Reportable Target Cells Not Reportable Tear Drop Cells Not Reportable Ovalocytes 1+ Helmet Cells Not Reportable [place] Bodies Not Reportable [place] Rings Not Reportable [place] Cells 1+ Bite Cells Not Reportable Crenated Cell Not Reportable Elliptocytes Few Acanthocytes (Spur) Not Reportable Rouleaux Not Reportable Hemoglobin C Crystals Not Reportable Schistocytes Not Reportable Malaria parasites Not Reportable Sander Bodies Not Reportable Hem Pathologist Commnt No PT INR APTT Sodium 143 Potassium 3.6 Chloride 102.2 Carbon Dioxide 27 Anion Gap 17 BUN 9 Creatinine 0.8 Estimated GFR > 60 BUN/Creatinine Ratio 11 Glucose 101 H Calcium 9.0 Total Bilirubin AST ALT Alkaline Phosphatase Lactate Dehydrogenase Total Protein Albumin Albumin/Globulin Ratio Urine Color Yellow Urine Turbidity Clear Urine pH 7.0 Ur Specific [place] 1.027 Urine Protein <15 mg/dl Urine Glucose (UA) Neg Urine Ketones Neg Urine Blood Neg Urine Nitrite Neg Urine Bilirubin Neg Urine Urobilinogen < 2.0 Ur Leukocyte Esterase Neg Urine WBC (Auto) 1.0 Urine RBC (Auto) 1.0 Urine Mucus Few Assessment and Plan 1.hematemesis 2.hematochezia 3.H/o refractory vito esophagitis (resistant to Diflucan) -H/H 10.7/32.8-stable compared to previous labs -continue to monitor H/H and transfuse as needed -reports vomiting x 2 days with blood tinged emesis and scant amount of rectal bleeding with BMs (rectal exam with light brown stool and scant amount of bright red blood-no melena) -patient with multiple prior admissions at multiple hospitals for similar symptoms undergoing multiple previous scopes (~20 since 2012) -last EGD 01/2019 showed severe vito esophagitis (stomach and duodenum normal) -last colonoscopy 07/2018 showed moderate internal hemorrhoids -currently HD stable -[id number] 2/2 known vito esophagitis; hematochezia-likely anorectal in origin due to hemorrhoids -no plan for repeat scope at this time unless overt bleeding develops -start on topical steroids for hemorrhoids -continue PPI BID -okay for diet as tolerated -avoid NSAIDS -limit narcotics -continue supportive care -alcohol/tobacco cessations discussed/encouraged with patient -will follow 4.pneumonia 5.HIV/AIDs -ID following <SANTA MCNAIR - Last Filed: 03/09/19 20:56> Medications and Allergies Active Meds: Active Medications Abacavir Sulfate (Ziagen) 600 mg PO DAILY [facility] Last Admin: 03/09/19 17:22 Dose: 600 mg Documented by: Acetaminophen (Tylenol) 650 mg PO Q4H PRN PRN Reason: Pain MILD(1-3)/Fever >100.5/BENNETT Diphenhydramine HCl (Benadryl) 50 mg PO ONCE ONE Stop: 03/09/19 21:01 Diphenhydramine HCl (Benadryl) 50 mg PO ONCE ONE Stop: 03/10/19 03:01 Famotidine (Pepcid) 20 mg PO ONCE ONE Stop: 03/09/19 21:01 Famotidine (Pepcid) 20 mg PO ONCE ONE Stop: 03/10/19 03:01 Hydrocortisone Acetate (Proctosol-Hc) 1 applic NC Q8H PRN PRN Reason: Hemorrhoids Hydromorphone HCl (Dilaudid) 0.5 mg IV Q4H PRN PRN Reason: Pain , Severe (7-10) Last Admin: 03/09/19 17:24 Dose: 0.5 mg Documented by: Ceftriaxone Sodium (Rocephin/Ns 1 Gm/50 Ml) 1 gm in 50 mls @ 100 mls/hr IV Q24H [facility]; Protocol Last Admin: 03/09/19 14:01 Dose: 100 mls/hr Documented by: Trimethoprim/Sulfamethoxazole (475 mg/ Dextrose) 529.6875 mls @ 350 mls/hr IV Q6HR [facility]; Protocol Last Admin: 03/09/19 17:21 Dose: 350 mls/hr Documented by: Lamivudine (Epivir) 300 mg PO DAILY [facility] Last Admin: 03/09/19 17:22 Dose: 300 mg Documented by: Ondansetron HCl (Zofran) 4 mg IV Q8H PRN PRN Reason: Nausea And Vomiting Last Admin: 03/09/19 19:40 Dose: 4 mg Documented by: Pantoprazole Sodium (Protonix) 40 mg IV BID [facility] Last Admin: 03/09/19 11:44 Dose: 40 mg Documented by: Prednisone (Deltasone) 50 mg PO ONCE ONE Stop: 03/09/19 21:01 Prednisone (Deltasone) 50 mg PO ONCE ONE Stop: 03/10/19 03:01 Sodium Chloride (Sodium Chloride Flush Syringe 10 Ml) 10 ml IV BID [facility] Last Admin: 03/09/19 11:44 Dose: 10 ml Documented by: Sodium Chloride (Sodium Chloride Flush Syringe 10 Ml) 10 ml IV PRN PRN PRN Reason: LINE FLUSH Last Admin: 03/09/19 19:41 Dose: 10 ml Documented by: Exam - Constitutional Vital Signs: Temp Pulse Resp BP Pulse Ox 98.3 F 87 18 126/84 98 03/09/19 16:35 03/09/19 16:35 03/09/19 16:35 03/09/19 16:35 03/09/19 16:35 - Labs CBC & Chem 7: 03/09/19 12:36 03/09/19 05:47 Lab Results: Laboratory Results - last 24 hr 03/08/19 03/08/19 03/09/19 22:36 22:36 00:50 WBC 7.3 RBC 4.23 Hgb 10.7 L Hct 32.3 L MCV 76 L MCH 25 L MCHC 33 RDW 22.2 H Plt Count 227 Lymph % (Auto) 32.5 [place] % (Auto) 11.7 H Eos % (Auto) 1.5 Baso % (Auto) 1.1 Lymph # 2.4 [place] # 0.9 H Eos # 0.1 Baso # 0.1 Add Manual Diff Total Counted Seg Neutrophils % 53.2 Seg Neuts % (Manual) Band Neutrophils % Lymphocytes % (Manual) Reactive Lymphs % (Man) Monocytes % (Manual) Eosinophils % (Manual) Basophils % (Manual) Metamyelocytes % Myelocytes % Promyelocytes % Blast Cells % Nucleated RBC % Seg Neutrophils # 3.9 Seg Neutrophils # Man Band Neutrophils # Lymphocytes # (Manual) Abs React Lymphs (Man) Monocytes # (Manual) Eosinophils # (Manual) Basophils # (Manual) Metamyelocytes # Myelocytes # Promyelocytes # Blast Cells # WBC Morphology Hypersegmented Neuts Hyposegmented Neuts Hypogranular Neuts Smudge Cells Toxic Granulation Toxic Vacuolation Dohle Bodies Pelger-Huet Anomaly Marco A Rods Platelet Estimate Clumped Platelets Plt Clumps, EDTA Large Platelets Giant Platelets Platelet Satelliting Plt Morphology Comment RBC Morphology Dimorphic RBCs Polychromasia Hypochromasia Poikilocytosis Anisocytosis Microcytosis Macrocytosis Spherocytes Pappenheimer Bodies Sickle Cells Target Cells Tear Drop Cells Ovalocytes Helmet Cells [place] Bodies [place] Rings [place] Cells Bite Cells Crenated Cell Elliptocytes Acanthocytes (Spur) Rouleaux Hemoglobin C Crystals Schistocytes Malaria parasites Sander Bodies Hem Pathologist Commnt PT 12.9 INR 0.92 APTT 25.9 Sodium 138 Potassium 3.8 Chloride 101.2 Carbon Dioxide 23 Anion Gap 18 BUN 10 Creatinine 0.8 Estimated GFR > 60 BUN/Creatinine Ratio 13 Glucose 92 Calcium 9.6 Total Bilirubin < 0.20 AST 21 ALT 20 Alkaline Phosphatase 88 Lactate Dehydrogenase 327 H Total Protein 8.2 Albumin 4.0 Albumin/Globulin Ratio 1.0 Urine Color Urine Turbidity Urine pH Ur Specific [place] Urine Protein Urine Glucose (UA) Urine Ketones Urine Blood Urine Nitrite Urine Bilirubin Urine Urobilinogen Ur Leukocyte Esterase Urine WBC (Auto) Urine RBC (Auto) Urine Mucus 03/09/19 03/09/19 03/09/19 04:52 05:47 10:00 WBC 6.7 RBC 3.65 Hgb 9.0 L Hct 28.1 L MCV 77 L MCH 25 L MCHC 32 RDW 24.5 H Plt Count 207 Lymph % (Auto) [place] % (Auto) Eos % (Auto) Baso % (Auto) Lymph # [place] # Eos # Baso # Add Manual Diff Complete Total Counted 100 Seg Neutrophils % Seg Neuts % (Manual) 56.0 Band Neutrophils % 1.0 Lymphocytes % (Manual) 28.0 Reactive Lymphs % (Man) 0 Monocytes % (Manual) 10.0 H Eosinophils % (Manual) 5.0 H Basophils % (Manual) 0 Metamyelocytes % 0 Myelocytes % 0 Promyelocytes % 0 Blast Cells % 0 Nucleated RBC % Not Reportable Seg Neutrophils # Seg Neutrophils # Man 3.8 Band Neutrophils # 0.1 Lymphocytes # (Manual) 1.9 Abs React Lymphs (Man) 0.0 Monocytes # (Manual) 0.7 Eosinophils # (Manual) 0.3 Basophils # (Manual) 0.0 Metamyelocytes # 0.0 Myelocytes # 0.0 Promyelocytes # 0.0 Blast Cells # 0.0 WBC Morphology Not Reportable Hypersegmented Neuts Not Reportable Hyposegmented Neuts Not Reportable Hypogranular Neuts Not Reportable Smudge Cells Not Reportable Toxic Granulation Not Reportable Toxic Vacuolation Not Reportable Dohle Bodies Not Reportable Pelger-Huet Anomaly Not Reportable Marco A Rods Not Reportable Platelet Estimate Consistent w auto Clumped Platelets Not Reportable Plt Clumps, EDTA Not Reportable Large Platelets Not Reportable Giant Platelets Not Reportable Platelet Satelliting Not Reportable Plt Morphology Comment Not Reportable RBC Morphology Not Reportable Dimorphic RBCs Not Reportable Polychromasia Not Reportable Hypochromasia 1+ Poikilocytosis 2+ Anisocytosis 2+ Microcytosis Not Reportable Macrocytosis Not Reportable Spherocytes Not Reportable Pappenheimer Bodies Not Reportable Sickle Cells Not Reportable Target Cells Not Reportable Tear Drop Cells Not Reportable Ovalocytes 1+ Helmet Cells Not Reportable [place] Bodies Not Reportable [place] Rings Not Reportable [place] Cells 1+ Bite Cells Not Reportable Crenated Cell Not Reportable Elliptocytes Few Acanthocytes (Spur) Not Reportable Rouleaux Not Reportable Hemoglobin C Crystals Not Reportable Schistocytes Not Reportable Malaria parasites Not Reportable Sander Bodies Not Reportable Hem Pathologist Commnt No PT INR APTT Sodium 143 Potassium 3.6 Chloride 102.2 Carbon Dioxide 27 Anion Gap 17 BUN 9 Creatinine 0.8 Estimated GFR > 60 BUN/Creatinine Ratio 11 Glucose 101 H Calcium 9.0 Total Bilirubin AST ALT Alkaline Phosphatase Lactate Dehydrogenase Total Protein Albumin Albumin/Globulin Ratio Urine Color Yellow Urine Turbidity Clear Urine pH 7.0 Ur Specific [place] 1.027 Urine Protein <15 mg/dl Urine Glucose (UA) Neg Urine Ketones Neg Urine Blood Neg Urine Nitrite Neg Urine Bilirubin Neg Urine Urobilinogen < 2.0 Ur Leukocyte Esterase Neg Urine WBC (Auto) 1.0 Urine RBC (Auto) 1.0 Urine Mucus Few 03/09/19 12:36 WBC RBC Hgb 10.7 L Hct 32.8 L MCV MCH MCHC RDW Plt Count Lymph % (Auto) [place] % (Auto) Eos % (Auto) Baso % (Auto) Lymph # [place] # Eos # Baso # Add Manual Diff Total Counted Seg Neutrophils % Seg Neuts % (Manual) Band Neutrophils % Lymphocytes % (Manual) Reactive Lymphs % (Man) Monocytes % (Manual) Eosinophils % (Manual) Basophils % (Manual) Metamyelocytes % Myelocytes % Promyelocytes % Blast Cells % Nucleated RBC % Seg Neutrophils # Seg Neutrophils # Man Band Neutrophils # Lymphocytes # (Manual) Abs React Lymphs (Man) Monocytes # (Manual) Eosinophils # (Manual) Basophils # (Manual) Metamyelocytes # Myelocytes # Promyelocytes # Blast Cells # WBC Morphology Hypersegmented Neuts Hyposegmented Neuts Hypogranular Neuts Smudge Cells Toxic Granulation Toxic Vacuolation Dohle Bodies Pelger-Huet Anomaly Marco A Rods Platelet Estimate Clumped Platelets Plt Clumps, EDTA Large Platelets Giant Platelets Platelet Satelliting Plt Morphology Comment RBC Morphology Dimorphic RBCs Polychromasia Hypochromasia Poikilocytosis Anisocytosis Microcytosis Macrocytosis Spherocytes Pappenheimer Bodies Sickle Cells Target Cells Tear Drop Cells Ovalocytes Helmet Cells [place] Bodies [place] Rings [place] Cells Bite Cells Crenated Cell Elliptocytes Acanthocytes (Spur) Rouleaux Hemoglobin C Crystals Schistocytes Malaria parasites Sander Bodies Hem Pathologist Commnt PT INR APTT Sodium Potassium Chloride Carbon Dioxide Anion Gap BUN Creatinine Estimated GFR BUN/Creatinine Ratio Glucose Calcium Total Bilirubin AST ALT Alkaline Phosphatase Lactate Dehydrogenase Total Protein Albumin Albumin/Globulin Ratio Urine Color Urine Turbidity Urine pH Ur Specific [place] Urine Protein Urine Glucose (UA) Urine Ketones Urine Blood Urine Nitrite Urine Bilirubin Urine Urobilinogen Ur Leukocyte Esterase Urine WBC (Auto) Urine RBC (Auto) Urine Mucus Assessment and Plan Patient seen and examined. I have reviewed the advanced practitioner's evalua tion, assessment, and plan, and agree with them. I note the following additions: Patient in NAD on exam, no active bleeding; EXTENSIVE endoscopic evaluation in the past with fairly recent EGD/colon as well. Therefore no need to repeat endoscopic evaluation as would be unlikely to be different than the prior endoscopies. The BRBPR is hemorrhoid related based upon last colonoscopy. Therefore as long as Hgb not rapidly dropping and no significant clinical bleeding no plan for endoscopy Remainder of recs as above
[2019-03-09 13:27] LABS: Hematocrit 32.8 % (35.5-45.6); Hemoglobin 10.7 gm/dl (11.8-15.2)
[2019-03-09] MEDS ORDERED: EPIVIR PO SCH (14:00)
[2019-03-09] MEDS ORDERED: ZIAGEN PO SCH (14:00)
[2019-03-09] MEDS: ROCEPHIN/NS 1 GM/50 ML 1 GM/50 ML BAG IV SCH (14:01)
[2019-03-09] MEDS ORDERED: PROCTOSOL-HC PR PRN (14:14)
[2019-03-09] MEDS: BACTRIM IV SCH (17:21)
[2019-03-09] MEDS: D5W IV SCH (17:21)
[2019-03-09] MEDS: ZIAGEN PO SCH (17:22)
[2019-03-09] MEDS: EPIVIR PO SCH (17:22)
[2019-03-09] MEDS: TIVICAY PO SCH (17:24)
[2019-03-09] MEDS: DILAUDID IV PRN ×2 (17:24→21:27)
[2019-03-09] MEDS: SODIUM CHLORIDE FLUSH SYRINGE 10 ML IV PRN (19:41)
[2019-03-09] MEDS ORDERED: DELTASONE PO ONE (21:00)
[2019-03-09] MEDS ORDERED: PEPCID PO ONE (21:00)
[2019-03-09] MEDS ORDERED: BENADRYL PO ONE (21:00)
[2019-03-10] MEDS: D5W IV SCH ×4 (01:47→18:00)
[2019-03-10] MEDS: BACTRIM IV SCH ×4 (01:47→18:00)
[2019-03-10] MEDS: DILAUDID IV PRN ×5 (01:48→21:25)
[2019-03-10] MEDS: SODIUM CHLORIDE FLUSH SYRINGE 10 ML IV PRN (01:50)
[2019-03-10] MEDS ORDERED: PEPCID PO ONE ×2 (03:00→09:00)
[2019-03-10] MEDS ORDERED: DELTASONE PO ONE ×2 (03:00→09:00)
[2019-03-10] MEDS ORDERED: BENADRYL PO ONE ×2 (03:00→09:00)
[2019-03-10] MEDS: ROCEPHIN/NS 1 GM/50 ML 1 GM/50 ML BAG IV SCH (06:28)
--- NOTE | 2019-03-10 10:00 | Gastroenterology Progress Note ---
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 No melena. -patient with multiple prior admissions at multiple hospitals for similar symptoms undergoing multiple previous scopes (~20 since 2012) -last EGD 01/2019 showed severe vito esophagitis (stomach and duodenum normal) -last colonoscopy 07/2018 showed moderate internal hemorrhoids -HD stable -bjbdelwg-aeicezdyqrn-mphiaa 2/2 known vito esophagitis; hematochezia-likely anorectal in origin due to hemorrhoids -no plan for repeat scope as long as Hgb is not rapidly dropping or overt bleeding, given no significant clinical bleeding at this time -continue topical steroids for hemorrhoids -continue PPI BID -okay for diet as tolerated -avoid NSAIDS -limit narcotics -continue supportive care -alcohol/tobacco cessations discussed/encouraged with patient -if labs remain stable, patient okay to be d/c per GI standpoint with f/u in clinic -no further GI recommendations at this time, will sign off. Please call back if needed 4.pneumonia 5.HIV/AIDs -ID following Subjective Date of service: 03/10/19 Principal diagnosis: GI bleed Interval history: No acute distress. Reports continued blood tinged emesis overnight and this am. Objective - Constitutional Vitals: Temp Pulse Resp BP Pulse Ox 98.6 F 89 18 107/62 95 03/10/19 04:21 03/10/19 04:21 03/10/19 04:21 03/10/19 04:21 03/10/19 04:21 General appearance: no acute distress - EENT Eyes: PERRL, EOM intact ENT: hearing intact - Respiratory Respiratory: bilateral: diminished - Cardiovascular Rhythm: regular - Gastrointestinal General gastrointestinal: Present: soft, non-tender, non-distended, normal bowel sounds - Neurologic Neurological: alert and oriented x3 - Labs CBC & Chem 7: 03/09/19 12:36 03/09/19 05:47 Labs: Laboratory Results - last 24 hr 03/09/19 03/09/19 10:00 12:36 Hgb 10.7 L Hct 32.8 L Urine Color Yellow Urine Turbidity Clear Urine pH 7.0 Ur Specific [place] 1.027 Urine Protein <15 mg/dl Urine Glucose (UA) Neg Urine Ketones Neg Urine Blood Neg Urine Nitrite Neg Urine Bilirubin Neg Urine Urobilinogen < 2.0 Ur Leukocyte Esterase Neg Urine WBC (Auto) 1.0 Urine RBC (Auto) 1.0 Urine Mucus Few <SANTA MCNAIR - Last Filed: 03/10/19 16:59> Assessment and Plan Patient seen and examined. I have reviewed the advanced practitioner's evaluation, assessment, and plan, and agree with them. I note the following additions: Pt without overt bleeding, he is comfortable resting in bed, will sign off Objective - Constitutional Vitals: Temp Pulse Resp BP Pulse Ox 98.6 F 89 18 107/62 95 03/10/19 04:21 03/10/19 04:21 03/10/19 04:21 03/10/19 04:21 03/10/19 04:21 - Labs CBC & Chem 7: 03/10/19 14:32 03/09/19 05:47 Labs: Laboratory Results - last 24 hr 03/10/19 14:32 WBC 7.3 RBC 4.48 Hgb 11.3 L Hct 33.9 L MCV 76 L MCH 25 L MCHC 33 RDW 22.3 H Plt Count 235 Add Manual Diff Complete Total Counted 100 Seg Neuts % (Manual) 81.0 H Band Neutrophils % 0 Lymphocytes % (Manual) 15.0 Reactive Lymphs % (Man) 0 Monocytes % (Manual) 3.0 Eosinophils % (Manual) 1.0 Basophils % (Manual) 0 Metamyelocytes % 0 Myelocytes % 0 Promyelocytes % 0 Blast Cells % 0 Nucleated RBC % Not Reportable Seg Neutrophils # Man 5.9 Band Neutrophils # 0.0 Lymphocytes # (Manual) 1.1 L Abs React Lymphs (Man) 0.0 Monocytes # (Manual) 0.2 Eosinophils # (Manual) 0.1 Basophils # (Manual) 0.0 Metamyelocytes # 0.0 Myelocytes # 0.0 Promyelocytes # 0.0 Blast Cells # 0.0 WBC Morphology Not Reportable Hypersegmented Neuts Not Reportable Hyposegmented Neuts Not Reportable Hypogranular Neuts Not Reportable Smudge Cells Not Reportable Toxic Granulation Not Reportable Toxic Vacuolation Not Reportable Dohle Bodies Not Reportable Pelger-Huet Anomaly Not Reportable Marco A Rods Not Reportable Platelet Estimate Not Reportable Clumped Platelets Not Reportable Plt Clumps, EDTA Not Reportable Large Platelets Not Reportable Giant Platelets Not Reportable Platelet Satelliting Not Reportable Plt Morphology Comment Not Reportable RBC Morphology Normal Dimorphic RBCs Not Reportable Polychromasia Not Reportable Hypochromasia Not Reportable Poikilocytosis Not Reportable Anisocytosis Not Reportable Microcytosis Not Reportable Macrocytosis Not Reportable Spherocytes Not Reportable Pappenheimer Bodies Not Reportable Sickle Cells Not Reportable Target Cells Not Reportable Tear Drop Cells Not Reportable Ovalocytes Not Reportable Helmet Cells Not Reportable [place] Bodies Not Reportable [place] Rings Not Reportable [place] Cells Not Reportable Bite Cells Not Reportable Crenated Cell Not Reportable Elliptocytes Not Reportable Acanthocytes (Spur) Not Reportable Rouleaux Not Reportable Hemoglobin C Crystals Not Reportable Schistocytes Not Reportable Malaria parasites Not Reportable Sander Bodies Not Reportable Hem Pathologist Commnt No
--- NOTE | 2019-03-10 10:11 | Progress Note ---
Assessment and Plan Assessment and plan: Bilateral pneumonia, community acquired versus PCP CT Chest ordered to be done today Rectal bleed due to internal hemorrhoids He was evaluated by GI. Conservative management Abdominal pain HIV infection He goes to Dr. Jose Alejandro Bar Noncompliance. I discussed with him importance of compliance. History Interval history: feels better blood in stools Vomiting blood tinged Hospitalist Physical - Physical exam Narrative exam: Gen: Not in acute distress, lying in bed HEENT: Normocephalic, atraumatic Heart: S1 and S2 reg, no murmurs, rubs or gallop Lungs: Bilateral crackles, no crackles, Abd: soft, non tender, non distended, normal BS Ext: No edema, no clubbing, no cyanosis Neuro: AAO x 3, no focal signs, moves all ext Psych:Normal mood - Constitutional Vitals: Temp Pulse Resp BP Pulse Ox 98.6 F 89 18 107/62 95 03/10/19 04:21 03/10/19 04:21 03/10/19 04:21 03/10/19 04:21 03/10/19 04:21 Results - Labs CBC & Chem 7: 03/10/19 14:32 03/09/19 05:47 Labs: Laboratory Last Values WBC 6.7 K/mm3 (4.5-11.0) 03/09/19 04:52 RBC 3.65 M/mm3 (3.65-5.03) 03/09/19 04:52 Hgb 10.7 gm/dl (11.8-15.2) L 03/09/19 12:36 Hct 32.8 % (35.5-45.6) L 03/09/19 12:36 MCV 77 fl (84-94) L 03/09/19 04:52 MCH 25 pg (28-32) L 03/09/19 04:52 MCHC 32 % (32-34) 03/09/19 04:52 RDW 24.5 % (13.2-15.2) H 03/09/19 04:52 Plt Count 207 K/mm3 (140-440) 03/09/19 04:52 Lymph % (Auto) 32.5 % (13.4-35.0) 03/09/19 00:50 [place] % (Auto) 11.7 % (0.0-7.3) H 03/09/19 00:50 Eos % (Auto) 1.5 % (0.0-4.3) 03/09/19 00:50 Baso % (Auto) 1.1 % (0.0-1.8) 03/09/19 00:50 Lymph # 2.4 K/mm3 (1.2-5.4) 03/09/19 00:50 [place] # 0.9 K/mm3 (0.0-0.8) H 03/09/19 00:50 Eos # 0.1 K/mm3 (0.0-0.4) 03/09/19 00:50 Baso # 0.1 K/mm3 (0.0-0.1) 03/09/19 00:50 Add Manual Diff Complete 03/09/19 04:52 Total Counted 100 03/09/19 04:52 Seg Neutrophils % 53.2 % (40.0-70.0) 03/09/19 00:50 Seg Neuts % (Manual) 56.0 % (40.0-70.0) 03/09/19 04:52 Band Neutrophils % 1.0 % 03/09/19 04:52 Lymphocytes % (Manual) 28.0 % (13.4-35.0) 03/09/19 04:52 Reactive Lymphs % (Man) 0 % 03/09/19 04:52 Monocytes % (Manual) 10.0 % (0.0-7.3) H 03/09/19 04:52 Eosinophils % (Manual) 5.0 % (0.0-4.3) H 03/09/19 04:52 Basophils % (Manual) 0 % (0.0-1.8) 03/09/19 04:52 Metamyelocytes % 0 % 03/09/19 04:52 Myelocytes % 0 % 03/09/19 04:52 Promyelocytes % 0 % 03/09/19 04:52 Blast Cells % 0 % 03/09/19 04:52 Nucleated RBC % Not Reportable 03/09/19 04:52 Seg Neutrophils # 3.9 K/mm3 (1.8-7.7) 03/09/19 00:50 Seg Neutrophils # Man 3.8 K/mm3 (1.8-7.7) 03/09/19 04:52 Band Neutrophils # 0.1 K/mm3 04/09/19 04:52 Lymphocytes # (Manual) 1.9 K/mm3 (1.2-5.4) 03/09/19 04:52 Abs React Lymphs (Man) 0.0 K/mm3 03/09/19 04:52 Monocytes # (Manual) 0.7 K/mm3 (0.0-0.8) 03/09/19 04:52 Eosinophils # (Manual) 0.3 K/mm3 (0.0-0.4) 03/09/19 04:52 Basophils # (Manual) 0.0 K/mm3 (0.0-0.1) 03/09/19 04:52 Metamyelocytes # 0.0 K/mm3 03/09/19 04:52 Myelocytes # 0.0 K/mm3 03/09/19 04:52 Promyelocytes # 0.0 K/mm3 03/09/19 04:52 Blast Cells # 0.0 K/mm3 03/09/19 04:52 WBC Morphology Not Reportable 03/09/19 04:52 Hypersegmented Neuts Not Reportable 03/09/19 04:52 Hyposegmented Neuts Not Reportable 03/09/19 04:52 Hypogranular Neuts Not Reportable 03/09/19 04:52 Smudge Cells Not Reportable 03/09/19 04:52 Toxic Granulation Not Reportable 03/09/19 04:52 Toxic Vacuolation Not Reportable 03/09/19 04:52 Dohle Bodies Not Reportable 03/09/19 04:52 Pelger-Huet Anomaly Not Reportable 03/09/19 04:52 Marco A Rods Not Reportable 03/09/19 04:52 Platelet Estimate Consistent w auto 03/09/19 04:52 Clumped Platelets Not Reportable 03/09/19 04:52 Plt Clumps, EDTA Not Reportable 03/09/19 04:52 Large Platelets Not Reportable 03/09/19 04:52 Giant Platelets Not Reportable 03/09/19 04:52 Platelet Satelliting Not Reportable 03/09/19 04:52 Plt Morphology Comment Not Reportable 03/09/19 04:52 RBC Morphology Not Reportable 03/09/19 04:52 Dimorphic RBCs Not Reportable 03/09/19 04:52 Polychromasia Not Reportable 03/09/19 04:52 Hypochromasia 1+ 03/09/19 04:52 Poikilocytosis 2+ 03/09/19 04:52 Anisocytosis 2+ 03/09/19 04:52 Microcytosis Not Reportable 03/09/19 04:52 Macrocytosis Not Reportable 03/09/19 04:52 Spherocytes Not Reportable 03/09/19 04:52 Pappenheimer Bodies Not Reportable 03/09/19 04:52 Sickle Cells Not Reportable 03/09/19 04:52 Target Cells Not Reportable 03/09/19 04:52 Tear Drop Cells Not Reportable 03/09/19 04:52 Ovalocytes 1+ 03/09/19 04:52 Helmet Cells Not Reportable 03/09/19 04:52 [place] Bodies Not Reportable 03/09/19 04:52 [place] Rings Not Reportable 03/09/19 04:52 [place] Cells 1+ 03/09/19 04:52 Bite Cells Not Reportable 03/09/19 04:52 Crenated Cell Not Reportable 03/09/19 04:52 Elliptocytes Few 03/09/19 04:52 Acanthocytes (Spur) Not Reportable 03/09/19 04:52 Rouleaux Not Reportable 03/09/19 04:52 Hemoglobin C Crystals Not Reportable 03/09/19 04:52 Schistocytes Not Reportable 03/09/19 04:52 Malaria parasites Not Reportable 03/09/19 04:52 Sander Bodies Not Reportable 03/09/19 04:52 Hem Pathologist Commnt No 03/09/19 04:52 PT 12.9 Sec. (12.2-14.9) 03/08/19 22:36 INR 0.92 (0.87-1.13) 03/08/19 22:36 APTT 25.9 Sec. (24.2-36.6) 03/08/19 22:36 Sodium 143 mmol/L (137-145) 03/09/19 05:47 Potassium 3.6 mmol/L (3.6-5.0) 03/09/19 05:47 Chloride 102.2 mmol/L (98-107) 03/09/19 05:47 Carbon Dioxide 27 mmol/L (22-30) 03/09/19 05:47 Anion Gap 17 mmol/L 03/09/19 05:47 BUN 9 mg/dL (9-20) 03/09/19 05:47 Creatinine 0.8 mg/dL (0.8-1.5) 03/09/19 05:47 Estimated GFR > 60 ml/min 03/09/19 05:47 BUN/Creatinine Ratio 11 % 03/09/19 05:47 Glucose 101 mg/dL (75-100) H 03/09/19 05:47 Calcium 9.0 mg/dL (8.4-10.2) 03/09/19 05:47 Total Bilirubin < 0.20 mg/dL (0.1-1.2) 03/08/19 22:36 AST 21 units/L (5-40) 03/08/19 22:36 ALT 20 units/L (7-56) 03/08/19 22:36 Alkaline Phosphatase 88 units/L (35-129) 03/08/19 22:36 Lactate Dehydrogenase 327 units/L (91-180) H 03/08/19 22:36 Total Protein 8.2 g/dL (6.3-8.2) 03/08/19 22:36 Albumin 4.0 g/dL (3.9-5) 03/08/19 22:36 Albumin/Globulin Ratio 1.0 % 03/08/19 22:36 Urine Color Yellow (Yellow) 03/09/19 10:00 Urine Turbidity Clear (Clear) 03/09/19 10:00 Urine pH 7.0 (5.0-7.0) 03/09/19 10:00 Ur Specific [place] 1.027 (1.003-1.030) 03/09/19 10:00 Urine Protein <15 mg/dl mg/dL (Negative) 03/09/19 10:00 Urine Glucose (UA) Neg mg/dL (Negative) 03/09/19 10:00 Urine Ketones Neg mg/dL (Negative) 03/09/19 10:00 Urine Blood Neg (Negative) 03/09/19 10:00 Urine Nitrite Neg (Negative) 03/09/19 10:00 Urine Bilirubin Neg (Negative) 03/09/19 10:00 Urine Urobilinogen < 2.0 mg/dL (<2.0) 03/09/19 10:00 Ur Leukocyte Esterase Neg (Negative) 03/09/19 10:00 Urine WBC (Auto) 1.0 /HPF (0.0-6.0) 03/09/19 10:00 Urine RBC (Auto) 1.0 /HPF (0.0-6.0) 03/09/19 10:00 Urine Mucus Few /HPF 03/09/19 10:00 Active Medications - Current Medications Current Medications: Generic Name Dose Route Start Last Admin Trade Name Freq PRN Reason Stop Dose Admin Abacavir Sulfate 600 mg 03/09/19 15:00 03/09/19 17:22 Ziagen PO 600 mg DAILY TALITA Administration Acetaminophen 650 mg 03/09/19 04:38 Tylenol PO Q4H PRN Pain MILD(1-3)/Fever >100.5/BENNETT Hydrocortisone Acetate 1 applic 03/09/19 14:14 Proctosol-Hc ID Q8H PRN Hemorrhoids Hydromorphone HCl 0.5 mg 03/09/19 16:45 03/10/19 08:49 Dilaudid IV 0.5 mg Q4H PRN Administration Pain , Severe (7-10) Ceftriaxone Sodium 1 gm in 50 mls @ 100 mls/hr 03/09/19 06:00 03/10/19 06:28 Rocephin/Ns 1 Gm/50 Ml IV 100 mls/hr Q24H TALITA Administration Protocol Trimethoprim/Sulfamethoxazole 529.6875 mls @ 350 mls/hr 03/09/19 16:00 03/10/19 06:25 475 mg/ Dextrose IV 350 mls/hr Q6HR TALITA Administration Protocol Lamivudine 300 mg 03/09/19 15:00 03/09/19 17:22 Epivir PO 300 mg DAILY TALITA Administration Ondansetron HCl 4 mg 03/09/19 04:38 03/09/19 19:40 Zofran IV 4 mg Q8H PRN Administration Nausea And Vomiting Pantoprazole Sodium 40 mg 03/09/19 10:00 03/09/19 21:28 Protonix IV 40 mg BID TALITA Administration Sodium Chloride 10 ml 03/09/19 10:00 03/09/19 21:29 Sodium Chloride Flush Syringe 10 Ml IV 10 ml BID TALITA Administration Sodium Chloride 10 ml 03/09/19 04:38 03/10/19 01:50 Sodium Chloride Flush Syringe 10 Ml IV 10 ml PRN PRN Administration LINE FLUSH
--- NOTE | 2019-03-10 10:19 | Progress Note ---
Assessment and Plan Cultures: no cultures drawn A/P: [id number]-male with a past medical history of PCP pneumonia 2010, gastric ulcers, pneumothroax Gr II internal hemorrhoids and HIV. Review of medical records at [facility] reveals CD4 count 32 and VL >350,000 in 2014.. He states that his last CD4 count was in the low 30's 2 months ago.The patient is noncompliant on HIV therapy with refractory malorie infection requiring micafungin during past admissions. Now admitted with: 1. Community Acquired Pneumonia vs PCP: productive cough for the past 3 days with yellow sputum, yesterday began coughing up blood. Chest xray shows extensive bilateral airspace disease. Pleural fluid is not seen. No fever or Leukocytosis. Continued SOB on exertion. Will order TTE. Currently being treated with Bactrim and ceftriaxone. 2. HIV: Currently taking Triumeg, for 2 months, previously non-compliant with medication regimen. Now with Dr. Bar, [facility]. Review of medical records at [facility] reveals CD4 count 32 and VL >350,000 in 2014. Current CD4 count 60's and VL > 1 million 2 months ago. Triumeg non-formulary, continue Epzicom and Tivicay. 3. Rectal Bleeding: due to internal hemorrhoids: GI following 4. Malorie Esophagitis: Malorie infection seen on exam on the back of the oropharynx, history of severe malorie infection that does not respond to Fluconazole. Will start Micafungin Plan: -f/u HIV RNA and Lymphocyte subset panel 2 -f/u Cryptoccocal serum antigen and, Streptoccocus Pneumoniae urinary antigen, Legionella Antigen, EIA, Serum , Serum 1, 3, Beta d glucan, -f/u induced sputum for PJP DFA -Continue Ceftriaxone and Bactrim, D2 -start Micafungin 100mg IV every 24 hours -continue Epzicom and Tivicay -CBC ordered for tomorrow - Order TTE [facility] M: [id number] O:[phone] Subjective Date of service: 03/10/19 Principal diagnosis: GI bleed Interval history: Patient seen and examined. Reports continued SOB on exertion and pleuritic chest pain. No fevers. Objective - Exam Narrative Exam: Constitutional: Alert, cooperative. mild distress . SOB Head, Ears, Nose: Normocephalic, atraumatic. External ears, nose normal Eyes: Conjunctivae/corneas clear. No icterus. No ptosis. Neck: Supple, no meningeal signs Oral: dentition good, no thrush. Cardiovascular: S1, S2 normal. Respiratory: Good air entry, clear to auscultation bilaterally, + SOB on exertion , + pleuritic chest pain GI: Soft, non-tender; bowel sounds normal., + rectal bleeding Musculoskeletal: No pedal edema, no cyanosis. Skin: No rash or abscess. + tattoos Hem/Lymphatic: No palpable cervical or supraclavicular nodes. No lymphangitis Psych: Mood ok. Affect normal Neurological: Awake, alert, oriented. G - Constitutional Vitals: Vital Signs Temp Pulse Resp BP Pulse Ox 98.6 F 89 18 107/62 95 03/10/19 04:21 03/10/19 04:21 03/10/19 04:21 03/10/19 04:21 03/10/19 04:21 Temperature -Last 24 Hours Temperature 98.6 F Temperature 99.0 F Temperature 98.3 F Temperature 98.2 F - Labs CBC & Chem 7: 03/10/19 14:32 03/09/19 05:47 Labs: Abnormal lab results 03/09/19 Range/Units 12:36 Hgb 10.7 L (11.8-15.2) gm/dl Hct 32.8 L (35.5-45.6) %
--- NOTE | 2019-03-10 11:58 | Cat Scan Report ---
CT CHEST WITHOUT CONTRAST: HISTORY: Pneumonia versus PCP. COMPARISON: none. TECHNIQUE: Helical CT in 1.25mm intervals without IV contrast. Sagittal and coronal reformatted images. FINDINGS: Thyroid gland: Normal. Tracheobronchial tree: Normal. Esophagus: Normal. Heart: Normal. Pericardium: Normal. Mediastinum: A moderate to large hiatal hernia is identified. No mediastinal mass or adenopathy is appreciated. Lung Nelson: There are mild hypoventilatory changes in the lower lung zones. The lung parenchyma is within normal limits otherwise. Pleural Spaces: Normal. Musculoskeletal: Normal. IMPRESSION: Hiatal hernia.
[2019-03-10] MEDS: EPIVIR PO SCH (13:11)
[2019-03-10] MEDS: TIVICAY PO SCH (13:12)
[2019-03-10] MEDS: ZIAGEN PO SCH (13:13)
[2019-03-10] MEDS: PROTONIX IV SCH ×2 (13:13→21:25)
[2019-03-10] MEDS: SODIUM CHLORIDE FLUSH SYRINGE 10 ML IV SCH (13:14)
[2019-03-10 14:56] LABS: Hematocrit 33.9 % (35.5-45.6); Hemoglobin 11.3 gm/dl (11.8-15.2); Mean Corpuscular HGB Conc 33 % (32-34); Mean Corpuscular Volume 76 fl (84-94); Platelet Count 235 K/mm3 (140-440); Red Blood Count 4.48 M/mm3 (3.65-5.03)
[2019-03-10 14:57] LABS: Red Cell Distribution Width 22.3 % (13.2-15.2)
[2019-03-10 15:51] LABS: Basophils % (Manual) 0 % (0.0-1.8); RBC Morphology Normal; Total Cells Counted 100
[2019-03-10] MEDS: MYCAMINE 100 MG in NACL 0.9% 100 ML IV SCH (16:00)
[2019-03-11] MEDS: DILAUDID IV PRN ×5 (02:52→20:37)
[2019-03-11] MEDS: SODIUM CHLORIDE FLUSH SYRINGE 10 ML IV SCH ×3 (02:55→21:30)
[2019-03-11] MEDS: ROCEPHIN/NS 1 GM/50 ML 1 GM/50 ML BAG IV SCH (05:36)
[2019-03-11] MEDS: D5W IV SCH ×4 (05:39→18:41)
[2019-03-11] MEDS: BACTRIM IV SCH ×4 (05:39→18:41)
--- NOTE | 2019-03-11 09:26 | Progress Note ---
Assessment and Plan Cultures: Cryptococcal Antigen: negative MRSA PCR: pending A/P: [id number]-male with a past medical history of PCP pneumonia 2010, gastric ulcers, pneumothroax Gr II internal hemorrhoids and HIV. Review of medical records at [facility] reveals CD4 count 32 and VL >350,000 in 2014.. He states that his last CD4 count was in the low 30's 2 months ago.The patient is noncompliant on HIV therapy with refractory malorie infection requiring micafungin during past admissions. Now admitted with: 1. Community Acquired Pneumonia vs PCP: productive cough for the past 3 days with yellow sputum, yesterday began coughing up blood. Chest xray shows extensive bilateral airspace disease. Pleural fluid is not seen. Chest CT shows that the lung parenchyma is within normal limits. Continue Ceftriaxone and Bactrim for now. 2. HIV: Currently taking Triumeg, for 2 months, previously non-compliant with medication regimen. Now with Dr. Bar, [facility]. Review of medical records at [facility] reveals CD4 count 32 and VL >350,000 in 2014. Current CD4 count 60's and VL > 1 million 2 months ago. Triumeg non-formulary, continue Epzicom and Tivicay. 3. Rectal Bleeding: due to internal hemorrhoids: GI following 4. Oropharyngeal candidiasis: with concern for possible esophagitis. Malorie infection seen on exam on the back of the oropharynx, history of severe malorie infection that does not respond to Fluconazole. Will start Micafungin Plan: -f/u HIV RNA and Lymphocyte subset panel 2 -f/u Cryptoccocal serum antigen and, Streptoccocus Pneumoniae urinary antigen, Legionella Antigen, EIA, Serum , Serum 1, 3, Beta d glucan, -f/u induced sputum for PJP DFA -Continue Ceftriaxone and Bactrim, D2 -continue Micafungin 100mg IV every 24 hours -continue Epzicom and Tivicay - f/u TTE - report pending [facility] M: [id number] O:[phone] Subjective Date of service: 03/11/19 Principal diagnosis: GI bleed Interval history: Patient seen and examined. SOB on exertion and pleuritic chest pain improved. No fevers. continued Hemoptysis. Objective - Exam Narrative Exam: Constitutional: Alert, cooperative. mild distress . Head, Ears, Nose: Normocephalic, atraumatic. External ears, nose normal Eyes: Conjunctivae/corneas clear. No icterus. No ptosis. Neck: Supple, no meningeal signs Oral: dentition good, no thrush. Cardiovascular: S1, S2 normal. Respiratory: Good air entry, clear to auscultation bilaterally, + SOB on exertion , + pleuritic chest pain improved, + hemoptysis. GI: Soft, non-tender; bowel sounds normal., + rectal bleeding Musculoskeletal: No pedal edema, no cyanosis. Skin: No rash or abscess. + tattoos Hem/Lymphatic: No palpable cervical or supraclavicular nodes. No lymphangitis Psych: Mood ok. Affect normal Neurological: Awake, alert, oriented. G - Constitutional Vitals: Vital Signs Temp Pulse Resp BP Pulse Ox 98.7 F 74 16 116/67 99 03/11/19 05:10 03/11/19 05:10 03/11/19 05:10 03/11/19 05:10 03/11/19 05:10 Temperature -Last 24 Hours Temperature 98.7 F Temperature 98.7 F Temperature 98.0 F Temperature 98.4 F - Labs CBC & Chem 7: 03/10/19 14:32 03/09/19 05:47 Labs: Abnormal lab results 03/10/19 Range/Units 14:32 Hgb 11.3 L (11.8-15.2) gm/dl Hct 33.9 L (35.5-45.6) % MCV 76 L (84-94) fl MCH 25 L (28-32) pg RDW 22.3 H (13.2-15.2) % Seg Neuts % (Manual) 81.0 H (40.0-70.0) % Lymphocytes # (Manual) 1.1 L (1.2-5.4) K/mm3
[2019-03-11] MEDS: ZIAGEN PO SCH (10:54)
[2019-03-11] MEDS: TIVICAY PO SCH (10:55)
[2019-03-11] MEDS: EPIVIR PO SCH (10:56)
[2019-03-11] MEDS: PROTONIX PO SCH ×2 (11:08→21:30)
[2019-03-11] MEDS: MYCAMINE 100 MG in NACL 0.9% 100 ML IV SCH (11:08)
--- NOTE | 2019-03-11 16:14 | Progress Note ---
Assessment and Plan Assessment and plan: Bilateral pneumonia, community acquired versus PCP CT Chest unremarkable, hiatal hernia Cont Bactrim iv, Ceftriaxone Rectal bleed due to internal hemorrhoids He was evaluated by GI. Conservative management Abdominal pain HIV infection He goes to Dr. Jose Alejandro Bar ID Physician following Noncompliance. I discussed with him importance of compliance. History Interval history: feels better blood in stools Vomiting blood tinged Hospitalist Physical - Physical exam Narrative exam: Gen: Not in acute distress, lying in bed HEENT: Normocephalic, atraumatic Heart: S1 and S2 reg, no murmurs, rubs or gallop Lungs: Bilateral crackles, no crackles, Abd: soft, non tender, non distended, normal BS Ext: No edema, no clubbing, no cyanosis Neuro: AAO x 3, no focal signs, moves all ext Psych:Normal mood - Constitutional Vitals: Temp Pulse Resp BP Pulse Ox 98.3 F 76 16 103/65 97 03/11/19 11:41 03/11/19 11:41 03/11/19 11:41 03/11/19 11:41 03/11/19 11:41 Results - Labs CBC & Chem 7: 03/10/19 14:32 03/09/19 05:47 Labs: Laboratory Last Values WBC 7.3 K/mm3 (4.5-11.0) 03/10/19 14:32 RBC 4.48 M/mm3 (3.65-5.03) 03/10/19 14:32 Hgb 11.3 gm/dl (11.8-15.2) L 03/10/19 14:32 Hct 33.9 % (35.5-45.6) L 03/10/19 14:32 MCV 76 fl (84-94) L 03/10/19 14:32 MCH 25 pg (28-32) L 03/10/19 14:32 MCHC 33 % (32-34) 03/10/19 14:32 RDW 22.3 % (13.2-15.2) H 03/10/19 14:32 Plt Count 235 K/mm3 (140-440) 03/10/19 14:32 Lymph % (Auto) 32.5 % (13.4-35.0) 03/09/19 00:50 [place] % (Auto) 11.7 % (0.0-7.3) H 03/09/19 00:50 Eos % (Auto) 1.5 % (0.0-4.3) 03/09/19 00:50 Baso % (Auto) 1.1 % (0.0-1.8) 03/09/19 00:50 Lymph # 2.4 K/mm3 (1.2-5.4) 03/09/19 00:50 [place] # 0.9 K/mm3 (0.0-0.8) H 03/09/19 00:50 Eos # 0.1 K/mm3 (0.0-0.4) 03/09/19 00:50 Baso # 0.1 K/mm3 (0.0-0.1) 03/09/19 00:50 Add Manual Diff Complete 03/10/19 14:32 Total Counted 100 03/10/19 14:32 Seg Neutrophils % 53.2 % (40.0-70.0) 03/09/19 00:50 Seg Neuts % (Manual) 81.0 % (40.0-70.0) H 03/10/19 14:32 Band Neutrophils % 0 % 03/10/19 14:32 Lymphocytes % (Manual) 15.0 % (13.4-35.0) 03/10/19 14:32 Reactive Lymphs % (Man) 0 % 03/10/19 14:32 Monocytes % (Manual) 3.0 % (0.0-7.3) 03/10/19 14:32 Eosinophils % (Manual) 1.0 % (0.0-4.3) 03/10/19 14:32 Basophils % (Manual) 0 % (0.0-1.8) 03/10/19 14:32 Metamyelocytes % 0 % 03/10/19 14:32 Myelocytes % 0 % 03/10/19 14:32 Promyelocytes % 0 % 03/10/19 14:32 Blast Cells % 0 % 03/10/19 14:32 Nucleated RBC % Not Reportable 03/10/19 14:32 Seg Neutrophils # 3.9 K/mm3 (1.8-7.7) 03/09/19 00:50 Seg Neutrophils # Man 5.9 K/mm3 (1.8-7.7) 03/10/19 14:32 Band Neutrophils # 0.0 K/mm3 03/10/19 14:32 Lymphocytes # (Manual) 1.1 K/mm3 (1.2-5.4) L 03/10/19 14:32 Abs React Lymphs (Man) 0.0 K/mm3 03/10/19 14:32 Monocytes # (Manual) 0.2 K/mm3 (0.0-0.8) 03/10/19 14:32 Eosinophils # (Manual) 0.1 K/mm3 (0.0-0.4) 03/10/19 14:32 Basophils # (Manual) 0.0 K/mm3 (0.0-0.1) 03/10/19 14:32 Metamyelocytes # 0.0 K/mm3 03/10/19 14:32 Myelocytes # 0.0 K/mm3 03/10/19 14:32 Promyelocytes # 0.0 K/mm3 03/10/19 14:32 Blast Cells # 0.0 K/mm3 03/10/19 14:32 WBC Morphology Not Reportable 03/10/19 14:32 Hypersegmented Neuts Not Reportable 03/10/19 14:32 Hyposegmented Neuts Not Reportable 03/10/19 14:32 Hypogranular Neuts Not Reportable 03/10/19 14:32 Smudge Cells Not Reportable 03/10/19 14:32 Toxic Granulation Not Reportable 03/10/19 14:32 Toxic Vacuolation Not Reportable 03/10/19 14:32 Dohle Bodies Not Reportable 03/10/19 14:32 Pelger-Huet Anomaly Not Reportable 03/10/19 14:32 Marco A Rods Not Reportable 03/10/19 14:32 Platelet Estimate Not Reportable 03/10/19 14:32 Clumped Platelets Not Reportable 03/10/19 14:32 Plt Clumps, EDTA Not Reportable 03/10/19 14:32 Large Platelets Not Reportable 03/10/19 14:32 Giant Platelets Not Reportable 03/10/19 14:32 Platelet Satelliting Not Reportable 03/10/19 14:32 Plt Morphology Comment Not Reportable 03/10/19 14:32 RBC Morphology Normal 03/10/19 14:32 Dimorphic RBCs Not Reportable 03/10/19 14:32 Polychromasia Not Reportable 03/10/19 14:32 Hypochromasia Not Reportable 03/10/19 14:32 Poikilocytosis Not Reportable 03/10/19 14:32 Anisocytosis Not Reportable 03/10/19 14:32 Microcytosis Not Reportable 03/10/19 14:32 Macrocytosis Not Reportable 03/10/19 14:32 Spherocytes Not Reportable 03/10/19 14:32 Pappenheimer Bodies Not Reportable 03/10/19 14:32 Sickle Cells Not Reportable 03/10/19 14:32 Target Cells Not Reportable 03/10/19 14:32 Tear Drop Cells Not Reportable 03/10/19 14:32 Ovalocytes Not Reportable 03/10/19 14:32 Helmet Cells Not Reportable 03/10/19 14:32 Reddy-[place] Bodies Not Reportable 03/10/19 14:32 [place] Rings Not Reportable 03/10/19 14:32 [place] Cells Not Reportable 03/10/19 14:32 Bite Cells Not Reportable 03/10/19 14:32 Crenated Cell Not Reportable 03/10/19 14:32 Elliptocytes Not Reportable 03/10/19 14:32 Acanthocytes (Spur) Not Reportable 03/10/19 14:32 Rouleaux Not Reportable 03/10/19 14:32 Hemoglobin C Crystals Not Reportable 03/10/19 14:32 Schistocytes Not Reportable 03/10/19 14:32 Malaria parasites Not Reportable 03/10/19 14:32 Sander Bodies Not Reportable 03/10/19 14:32 Hem Pathologist Commnt No 03/10/19 14:32 PT 12.9 Sec. (12.2-14.9) 03/08/19 22:36 INR 0.92 (0.87-1.13) 03/08/19 22:36 APTT 25.9 Sec. (24.2-36.6) 03/08/19 22:36 Sodium 143 mmol/L (137-145) 03/09/19 05:47 Potassium 3.6 mmol/L (3.6-5.0) 03/09/19 05:47 Chloride 102.2 mmol/L (98-107) 03/09/19 05:47 Carbon Dioxide 27 mmol/L (22-30) 03/09/19 05:47 Anion Gap 17 mmol/L 03/09/19 05:47 BUN 9 mg/dL (9-20) 03/09/19 05:47 Creatinine 0.8 mg/dL (0.8-1.5) 03/09/19 05:47 Estimated GFR > 60 ml/min 03/09/19 05:47 BUN/Creatinine Ratio 11 % 03/09/19 05:47 Glucose 101 mg/dL (75-100) H 03/09/19 05:47 Calcium 9.0 mg/dL (8.4-10.2) 03/09/19 05:47 Total Bilirubin < 0.20 mg/dL (0.1-1.2) 03/08/19 22:36 AST 21 units/L (5-40) 03/08/19 22:36 ALT 20 units/L (7-56) 03/08/19 22:36 Alkaline Phosphatase 88 units/L (35-129) 03/08/19 22:36 Lactate Dehydrogenase 327 units/L (91-180) H 03/08/19 22:36 Total Protein 8.2 g/dL (6.3-8.2) 03/08/19 22:36 Albumin 4.0 g/dL (3.9-5) 03/08/19 22:36 Albumin/Globulin Ratio 1.0 % 03/08/19 22:36 Urine Color Yellow (Yellow) 03/09/19 10:00 Urine Turbidity Clear (Clear) 03/09/19 10:00 Urine pH 7.0 (5.0-7.0) 03/09/19 10:00 Ur Specific [place] 1.027 (1.003-1.030) 03/09/19 10:00 Urine Protein <15 mg/dl mg/dL (Negative) 03/09/19 10:00 Urine Glucose (UA) Neg mg/dL (Negative) 03/09/19 10:00 Urine Ketones Neg mg/dL (Negative) 03/09/19 10:00 Urine Blood Neg (Negative) 03/09/19 10:00 Urine Nitrite Neg (Negative) 03/09/19 10:00 Urine Bilirubin Neg (Negative) 03/09/19 10:00 Urine Urobilinogen < 2.0 mg/dL (<2.0) 03/09/19 10:00 Ur Leukocyte Esterase Neg (Negative) 03/09/19 10:00 Urine WBC (Auto) 1.0 /HPF (0.0-6.0) 03/09/19 10:00 Urine RBC (Auto) 1.0 /HPF (0.0-6.0) 03/09/19 10:00 Urine Mucus Few /HPF 03/09/19 10:00 Active Medications - Current Medications Current Medications: Generic Name Dose Route Start Last Admin Trade Name Freq PRN Reason Stop Dose Admin Abacavir Sulfate 600 mg 03/09/19 15:00 03/11/19 10:54 Ziagen PO 600 mg DAILY TALITA Administration Acetaminophen 650 mg 03/09/19 04:38 Tylenol PO Q4H PRN Pain MILD(1-3)/Fever >100.5/BENNETT Hydrocortisone Acetate 1 applic 03/09/19 14:14 Proctosol-Hc DE Q8H PRN Hemorrhoids Hydromorphone HCl 0.5 mg 03/09/19 16:45 03/11/19 10:57 Dilaudid IV 0.5 mg Q4H PRN Administration Pain , Severe (7-10) Ceftriaxone Sodium 1 gm in 50 mls @ 100 mls/hr 03/09/19 06:00 03/11/19 05:36 Rocephin/Ns 1 Gm/50 Ml IV 100 mls/hr Q24H TALITA Administration Protocol Trimethoprim/Sulfamethoxazole 529.6875 mls @ 350 mls/hr 03/09/19 16:00 03/11/19 06:39 475 mg/ Dextrose IV Not Given Q6HR TALITA Protocol Micafungin Sodium 100 mg/ 100 mls @ 100 mls/hr 03/10/19 16:00 03/11/19 11:08 Sodium Chloride IV 100 mls/hr QDAY TALITA Administration Protocol Lamivudine 300 mg 03/09/19 15:00 03/11/19 10:56 Epivir PO 300 mg DAILY TALITA Administration Ondansetron HCl 4 mg 03/09/19 04:38 03/09/19 19:40 Zofran IV 4 mg Q8H PRN Administration Nausea And Vomiting Pantoprazole Sodium 40 mg 03/11/19 10:00 03/11/19 11:08 Protonix PO 40 mg BID TALITA Administration Sodium Chloride 10 ml 03/09/19 10:00 03/11/19 10:56 Sodium Chloride Flush Syringe 10 Ml IV 10 ml BID TALITA Administration Sodium Chloride 10 ml 03/09/19 04:38 03/10/19 01:50 Sodium Chloride Flush Syringe 10 Ml IV 10 ml PRN PRN Administration LINE FLUSH
[2019-03-12] MEDS: DILAUDID IV PRN ×6 (01:02→22:07)
[2019-03-12] MEDS: D5W IV SCH ×4 (01:02→18:37)
[2019-03-12] MEDS: BACTRIM IV SCH ×4 (01:02→18:37)
[2019-03-12] MEDS: ROCEPHIN/NS 1 GM/50 ML 1 GM/50 ML BAG IV SCH (06:49)
--- NOTE | 2019-03-12 09:47 | Progress Note ---
Assessment and Plan Cultures: Cryptococcal Antigen: negative MRSA PCR: negative A/P: [id number] with a past medical history of PCP pneumonia 2010, gastric ulcers, pneumothroax Gr II internal hemorrhoids and HIV. Review of [facility] at [facility] reveals CD4 count 32 and VL >350,000 in 2015.. He states that his last CD4 count was in the low 30's 2 months ago.The patient is noncompliant on HIV therapy with refractory malorie infection requiring micafungin during past admissions. Now admitted with: 1. Community Acquired Pneumonia vs PCP: productive cough for the past 3 days with yellow sputum, yesterday began coughing up blood. Chest xray shows extensive bilateral airspace disease. Pleural fluid is not seen. Chest CT shows very subtle ground glass, ?mild PCP pneumonia. Repeat chest xray shows patchy bilateral airspace disease mentioned on previous xray has resolved. 2. HIV: Currently taking Triumeg, for 2 months, previously non-compliant with medication regimen. Now with Dr. Bar, [facility]. Review of medical records at [facility] reveals CD4 count 32 and VL >350,000 in 2014. Current CD4 count 60's and VL > 1 million 2 months ago. Triumeg non-formulary, continue Epzicom and Tivicay. TTE is normal. 3. Rectal Bleeding: due to internal hemorrhoids: GI following 4. Oropharyngeal candidiasis: with concern for possible esophagitis. Malorie infection seen on exam on the back of the oropharynx, history of severe malorie infection that does not respond to Fluconazole. Will start Micafungin 5. Hemoptysis vs Hematemesis: ?related to esophagitis. Possibility of HSV or CMV esophagitis does exist. Awaiting pulmonary evaluation. May have to consider re-eval by GI for possible EGD and biopsy if patient doesn't respond to micafungin. Plan: -f/u HIV RNA and Lymphocyte subset panel 2 -f/u Cryptoccocal serum antigen and, Streptoccocus Pneumoniae urinary antigen, Legionella Antigen, EIA, Serum , Serum 1, 3, Beta d glucan, -f/u induced sputum for PJP DFA -Continue Ceftriaxone and Bactrim, D3 -continue Micafungin 100mg IV every 24 hours, D3 -continue Epzicom and Tivicay Dr. Thompson will be online health and fitness coach on Friday [phone], Dr. Lyon will be making rounds on Friday [phone], please call for questions. Nicole De León NP [facility] M: [id number] O:[phone] Subjective Date of service: 03/12/19 Principal diagnosis: GI bleed Interval history: Patient seen and examined. SOB on exertion and pleuritic chest pain improved. No fevers. continued Hemoptysis. Objective - Exam Narrative Exam: Constitutional: Alert, cooperative. mild distress . Head, Ears, Nose: Normocephalic, atraumatic. External ears, nose normal Eyes: Conjunctivae/corneas clear. No icterus. No ptosis. Neck: Supple, no meningeal signs Oral: dentition good, no thrush. Cardiovascular: S1, S2 normal. Respiratory: Good air entry, clear to auscultation bilaterally, + SOB on exertion , + pleuritic chest pain improved, + hemoptysis. GI: Soft, non-tender; bowel sounds normal., + rectal bleeding Musculoskeletal: No pedal edema, no cyanosis. Skin: No rash or abscess. + tattoos Hem/Lymphatic: No palpable cervical or supraclavicular nodes. No lymphangitis Psych: Mood ok. Affect normal Neurological: Awake, alert, oriented. G - Constitutional Vitals: Vital Signs Temp Pulse Resp BP Pulse Ox 98.0 F 81 16 109/64 98 03/12/19 04:45 03/12/19 04:45 03/12/19 04:45 03/12/19 04:45 03/12/19 04:45 Temperature -Last 24 Hours Temperature 98.0 F Temperature 98.0 F Temperature 97.9 F Temperature 98.3 F - Labs CBC & Chem 7: 03/10/19 14:32 03/09/19 05:47
[2019-03-12] MEDS: SODIUM CHLORIDE FLUSH SYRINGE 10 ML IV SCH ×2 (10:17→22:08)
[2019-03-12] MEDS: PROTONIX PO SCH ×2 (10:18→22:07)
[2019-03-12] MEDS: ZIAGEN PO SCH (10:18)
[2019-03-12] MEDS: EPIVIR PO SCH (10:20)
[2019-03-12] MEDS: TIVICAY PO SCH (10:38)
--- NOTE | 2019-03-12 11:28 | XRay Report ---
ROUTINE CHEST, TWO VIEWS: HISTORY: Bilateral airspace disease. The trachea, heart, mediastinal contour, lung albright and bony thorax are unremarkable. Patchy bilateral airspace disease mentioned on 03/09/19 exam has resolved. I suspect this represented hypoventilatory changes. IMPRESSION: Unremarkable chest x-ray.
--- NOTE | 2019-03-12 12:08 | Progress Note ---
Assessment and Plan Assessment and plan: Bilateral pneumonia, community acquired versus PCP CT Chest unremarkable, hiatal hernia Cont Bactrim iv, Ceftriaxone Hematemesis he has history of pulm embolism Discussed with Pulmonology Will do CTAngio chest to r/o Pulm embolism Rectal bleed due to internal hemorrhoids He was evaluated by GI. Conservative management Esophagitis Micafungin Oropharyngeal candidiasis Micafungin Abdominal pain HIV infection He goes to Dr. Jose Alejandro Bar ID Physician following Noncompliance. I discussed with him importance of compliance. History Interval history: feels better blood in stools Coughing up blood Hospitalist Physical - Physical exam Narrative exam: Gen: Not in acute distress, lying in bed HEENT: Normocephalic, atraumatic Heart: S1 and S2 reg, no murmurs, rubs or gallop Lungs: Bilateral crackles, no crackles, Abd: soft, non tender, non distended, normal BS Ext: No edema, no clubbing, no cyanosis Neuro: AAO x 3, no focal signs, moves all ext Psych:Normal mood - Constitutional Vitals: Temp Pulse Resp BP Pulse Ox 98.0 F 81 16 109/64 98 03/12/19 04:45 03/12/19 04:45 03/12/19 04:45 03/12/19 04:45 03/12/19 04:45 Results - Labs CBC & Chem 7: 03/10/19 14:32 03/09/19 05:47 Labs: Laboratory Last Values WBC 7.3 K/mm3 (4.5-11.0) 03/10/19 14:32 RBC 4.48 M/mm3 (3.65-5.03) 03/10/19 14:32 Hgb 11.3 gm/dl (11.8-15.2) L 03/10/19 14:32 Hct 33.9 % (35.5-45.6) L 03/10/19 14:32 MCV 76 fl (84-94) L 03/10/19 14:32 MCH 25 pg (28-32) L 03/10/19 14:32 MCHC 33 % (32-34) 03/10/19 14:32 RDW 22.3 % (13.2-15.2) H 03/10/19 14:32 Plt Count 235 K/mm3 (140-440) 03/10/19 14:32 Lymph % (Auto) 32.5 % (13.4-35.0) 03/09/19 00:50 [place] % (Auto) 11.7 % (0.0-7.3) H 03/09/19 00:50 Eos % (Auto) 1.5 % (0.0-4.3) 03/09/19 00:50 Baso % (Auto) 1.1 % (0.0-1.8) 03/09/19 00:50 Lymph # 2.4 K/mm3 (1.2-5.4) 03/09/19 00:50 [place] # 0.9 K/mm3 (0.0-0.8) H 03/09/19 00:50 Eos # 0.1 K/mm3 (0.0-0.4) 03/09/19 00:50 Baso # 0.1 K/mm3 (0.0-0.1) 03/09/19 00:50 Add Manual Diff Complete 03/10/19 14:32 Total Counted 100 03/10/19 14:32 Seg Neutrophils % 53.2 % (40.0-70.0) 03/09/19 00:50 Seg Neuts % (Manual) 81.0 % (40.0-70.0) H 03/10/19 14:32 Band Neutrophils % 0 % 03/10/19 14:32 Lymphocytes % (Manual) 15.0 % (13.4-35.0) 03/10/19 14:32 Reactive Lymphs % (Man) 0 % 03/10/19 14:32 Monocytes % (Manual) 3.0 % (0.0-7.3) 03/10/19 14:32 Eosinophils % (Manual) 1.0 % (0.0-4.3) 03/10/19 14:32 Basophils % (Manual) 0 % (0.0-1.8) 03/10/19 14:32 Metamyelocytes % 0 % 03/10/19 14:32 Myelocytes % 0 % 03/10/19 14:32 Promyelocytes % 0 % 03/10/19 14:32 Blast Cells % 0 % 03/10/19 14:32 Nucleated RBC % Not Reportable 03/10/19 14:32 Seg Neutrophils # 3.9 K/mm3 (1.8-7.7) 03/09/19 00:50 Seg Neutrophils # Man 5.9 K/mm3 (1.8-7.7) 03/10/19 14:32 Band Neutrophils # 0.0 K/mm3 03/10/19 14:32 Lymphocytes # (Manual) 1.1 K/mm3 (1.2-5.4) L 03/10/19 14:32 Abs React Lymphs (Man) 0.0 K/mm3 03/10/19 14:32 Monocytes # (Manual) 0.2 K/mm3 (0.0-0.8) 03/10/19 14:32 Eosinophils # (Manual) 0.1 K/mm3 (0.0-0.4) 03/10/19 14:32 Basophils # (Manual) 0.0 K/mm3 (0.0-0.1) 03/10/19 14:32 Metamyelocytes # 0.0 K/mm3 03/10/19 14:32 Myelocytes # 0.0 K/mm3 03/10/19 14:32 Promyelocytes # 0.0 K/mm3 03/10/19 14:32 Blast Cells # 0.0 K/mm3 03/10/19 14:32 WBC Morphology Not Reportable 03/10/19 14:32 Hypersegmented Neuts Not Reportable 03/10/19 14:32 Hyposegmented Neuts Not Reportable 03/10/19 14:32 Hypogranular Neuts Not Reportable 03/10/19 14:32 Smudge Cells Not Reportable 03/10/19 14:32 Toxic Granulation Not Reportable 03/10/19 14:32 Toxic Vacuolation Not Reportable 03/10/19 14:32 Dohle Bodies Not Reportable 03/10/19 14:32 Pelger-Huet Anomaly Not Reportable 03/10/19 14:32 Marco A Rods Not Reportable 03/10/19 14:32 Platelet Estimate Not Reportable 03/10/19 14:32 Clumped Platelets Not Reportable 03/10/19 14:32 Plt Clumps, EDTA Not Reportable 03/10/19 14:32 Large Platelets Not Reportable 03/10/19 14:32 Giant Platelets Not Reportable 03/10/19 14:32 Platelet Satelliting Not Reportable 03/10/19 14:32 Plt Morphology Comment Not Reportable 03/10/19 14:32 RBC Morphology Normal 03/10/19 14:32 Dimorphic RBCs Not Reportable 03/10/19 14:32 Polychromasia Not Reportable 03/10/19 14:32 Hypochromasia Not Reportable 03/10/19 14:32 Poikilocytosis Not Reportable 03/10/19 14:32 Anisocytosis Not Reportable 03/10/19 14:32 Microcytosis Not Reportable 03/10/19 14:32 Macrocytosis Not Reportable 03/10/19 14:32 Spherocytes Not Reportable 03/10/19 14:32 Pappenheimer Bodies Not Reportable 03/10/19 14:32 Sickle Cells Not Reportable 03/10/19 14:32 Target Cells Not Reportable 03/10/19 14:32 Tear Drop Cells Not Reportable 03/10/19 14:32 Ovalocytes Not Reportable 03/10/19 14:32 Helmet Cells Not Reportable 03/10/19 14:32 [place] Bodies Not Reportable 03/10/19 14:32 [place] Rings Not Reportable 03/10/19 14:32 [place] Cells Not Reportable 03/10/19 14:32 Bite Cells Not Reportable 03/10/19 14:32 Crenated Cell Not Reportable 03/10/19 14:32 Elliptocytes Not Reportable 03/10/19 14:32 Acanthocytes (Spur) Not Reportable 03/10/19 14:32 Rouleaux Not Reportable 03/10/19 14:32 Hemoglobin C Crystals Not Reportable 03/10/19 14:32 Schistocytes Not Reportable 03/10/19 14:32 Malaria parasites Not Reportable 03/10/19 14:32 Sander Bodies Not Reportable 03/10/19 14:32 Hem Pathologist Commnt No 03/10/19 14:32 PT 12.9 Sec. (12.2-14.9) 03/08/19 22:36 INR 0.92 (0.87-1.13) 03/08/19 22:36 APTT 25.9 Sec. (24.2-36.6) 03/08/19 22:36 Sodium 143 mmol/L (137-145) 03/09/19 05:47 Potassium 3.6 mmol/L (3.6-5.0) 03/09/19 05:47 Chloride 102.2 mmol/L (98-107) 03/09/19 05:47 Carbon Dioxide 27 mmol/L (22-30) 03/09/19 05:47 Anion Gap 17 mmol/L 03/09/19 05:47 BUN 9 mg/dL (9-20) 03/09/19 05:47 Creatinine 0.8 mg/dL (0.8-1.5) 03/09/19 05:47 Estimated GFR > 60 ml/min 03/09/19 05:47 BUN/Creatinine Ratio 11 % 03/09/19 05:47 Glucose 101 mg/dL (75-100) H 03/09/19 05:47 Calcium 9.0 mg/dL (8.4-10.2) 03/09/19 05:47 Total Bilirubin < 0.20 mg/dL (0.1-1.2) 03/08/19 22:36 AST 21 units/L (5-40) 03/08/19 22:36 ALT 20 units/L (7-56) 03/08/19 22:36 Alkaline Phosphatase 88 units/L (35-129) 03/08/19 22:36 Lactate Dehydrogenase 327 units/L (91-180) H 03/08/19 22:36 Total Protein 8.2 g/dL (6.3-8.2) 03/08/19 22:36 Albumin 4.0 g/dL (3.9-5) 03/08/19 22:36 Albumin/Globulin Ratio 1.0 % 03/08/19 22:36 Urine Color Yellow (Yellow) 03/09/19 10:00 Urine Turbidity Clear (Clear) 03/09/19 10:00 Urine pH 7.0 (5.0-7.0) 03/09/19 10:00 Ur Specific [place] 1.027 (1.003-1.030) 03/09/19 10:00 Urine Protein <15 mg/dl mg/dL (Negative) 03/09/19 10:00 Urine Glucose (UA) Neg mg/dL (Negative) 03/09/19 10:00 Urine Ketones Neg mg/dL (Negative) 03/09/19 10:00 Urine Blood Neg (Negative) 03/09/19 10:00 Urine Nitrite Neg (Negative) 03/09/19 10:00 Urine Bilirubin Neg (Negative) 03/09/19 10:00 Urine Urobilinogen < 2.0 mg/dL (<2.0) 03/09/19 10:00 Ur Leukocyte Esterase Neg (Negative) 03/09/19 10:00 Urine WBC (Auto) 1.0 /HPF (0.0-6.0) 03/09/19 10:00 Urine RBC (Auto) 1.0 /HPF (0.0-6.0) 03/09/19 10:00 Urine Mucus Few /HPF 03/09/19 10:00 Active Medications - Current Medications Current Medications: Generic Name Dose Route Start Last Admin Trade Name Freq PRN Reason Stop Dose Admin Abacavir Sulfate 600 mg 03/09/19 15:00 03/12/19 10:18 Ziagen PO 600 mg DAILY TALITA Administration Acetaminophen 650 mg 03/09/19 04:38 Tylenol PO Q4H PRN Pain MILD(1-3)/Fever >100.5/BENNETT Hydrocortisone Acetate 1 applic 03/09/19 14:14 Proctosol-Hc [place] Q8H PRN Hemorrhoids Hydromorphone HCl 0.5 mg 03/09/19 16:45 03/12/19 08:53 Dilaudid IV 0.5 mg Q4H PRN Administration Pain , Severe (7-10) Ceftriaxone Sodium 1 gm in 50 mls @ 100 mls/hr 03/09/19 06:00 03/12/19 06:49 Rocephin/Ns 1 Gm/50 Ml IV 100 mls/hr Q24H TALITA Administration Protocol Trimethoprim/Sulfamethoxazole 529.6875 mls @ 350 mls/hr 03/09/19 16:00 03/12/19 06:50 475 mg/ Dextrose IV 350 mls/hr Q6HR TALITA Administration Protocol Micafungin Sodium 100 mg/ 100 mls @ 100 mls/hr 03/10/19 16:00 03/11/19 11:08 Sodium Chloride IV 100 mls/hr QDAY TALITA Administration Protocol Lamivudine 300 mg 03/09/19 15:00 03/12/19 10:20 Epivir PO 300 mg DAILY TALITA Administration Ondansetron HCl 4 mg 03/09/19 04:38 03/09/19 19:40 Zofran IV 4 mg Q8H PRN Administration Nausea And Vomiting Pantoprazole Sodium 40 mg 03/11/19 10:00 03/12/19 10:18 Protonix PO 40 mg BID TALITA Administration Sodium Chloride 10 ml 03/09/19 10:00 03/12/19 10:17 Sodium Chloride Flush Syringe 10 Ml IV 10 ml BID TALITA Administration Sodium Chloride 10 ml 03/09/19 04:38 03/10/19 01:50 Sodium Chloride Flush Syringe 10 Ml IV 10 ml PRN PRN Administration LINE FLUSH
[2019-03-12] MEDS: MYCAMINE 100 MG in NACL 0.9% 100 ML IV SCH (12:34)
--- NOTE | 2019-03-12 15:04 | Consultation ---
History of Present Illness Consult date: 03/12/19 Requesting physician: CHING APARICIO Reason for consult: other (hemoptysis) History of present illness: 34 y/o male with HIV, admitted with rectal bleeding. H/H has been stable but is no coughing up bright red blood. Per patient had PE he thinks back in 2012. Treated for approximately 6-7 months and then stopped. Denies any recent long trips. Does smoke cigarettes. Showed me basin with bright red blood in it. Also complains of chest pain. Past History Past Medical History: other (as per HPI and PE, not on therapy anymore.) Past Surgical History: Other (knee surgery, IVC filter, s/p PEG and removal, prior chest tube) Social history: smoking, alcohol abuse Family history: hypertension Medications and Allergies Allergies Allergy/AdvReac Type Severity Reaction Status Date / Time azithromycin Allergy Swelling Verified 01/24/16 16:22 Iodinated Contrast- Oral and Allergy Hives Verified 03/09/19 17:16 IV Dye ketorolac tromethamine Allergy Rash Verified 01/24/16 16:22 [From Toradol] metoclopramide HCl Allergy Hives Verified 01/24/16 16:22 [From Reglan] morphine Allergy Vomiting Verified 01/24/16 16:22 tramadol Allergy Hives Verified 01/24/16 16:22 Home Medications Medication Instructions Recorded Confirmed Last Taken Type oxyCODONE /ACETAMINOPHEN [Percocet 1 tab PO Q6HR PRN #10 tablet 07/08/18 Unknown Rx 5/325] Oxycodone HCl [Oxycontin] 1 tab PO Q6HR PRN 03/09/19 03/09/19 Unknown History Pantoprazole [Protonix TAB] 1 tab PO BID 03/09/19 03/09/19 Unknown History Active Meds: Active Medications Abacavir Sulfate (Ziagen) 600 mg PO DAILY TALITA Last Admin: 03/12/19 10:18 Dose: 600 mg Documented by: Acetaminophen (Tylenol) 650 mg PO Q4H PRN PRN Reason: Pain MILD(1-3)/Fever >100.5/BENNETT Hydrocortisone Acetate (Proctosol-Hc) 1 applic DC Q8H PRN PRN Reason: Hemorrhoids Hydromorphone HCl (Dilaudid) 0.5 mg IV Q4H PRN PRN Reason: Pain , Severe (7-10) Last Admin: 03/12/19 14:05 Dose: 0.5 mg Documented by: Ceftriaxone Sodium (Rocephin/Ns 1 Gm/50 Ml) 1 gm in 50 mls @ 100 mls/hr IV Q24H [facility]; Protocol Last Admin: 03/12/19 06:49 Dose: 100 mls/hr Documented by: Trimethoprim/Sulfamethoxazole (475 mg/ Dextrose) 529.6875 mls @ 350 mls/hr IV Q6HR [facility]; Protocol Last Admin: 03/12/19 12:50 Dose: 350 mls/hr Documented by: Micafungin Sodium 100 mg/ (Sodium Chloride) 100 mls @ 100 mls/hr IV QDAY [facility]; Protocol Last Admin: 03/12/19 12:34 Dose: 100 mls/hr Documented by: Lamivudine (Epivir) 300 mg PO DAILY [facility] Last Admin: 03/12/19 10:20 Dose: 300 mg Documented by: Ondansetron HCl (Zofran) 4 mg IV Q8H PRN PRN Reason: Nausea And Vomiting Last Admin: 03/09/19 19:40 Dose: 4 mg Documented by: Pantoprazole Sodium (Protonix) 40 mg PO BID [facility] Last Admin: 03/12/19 10:18 Dose: 40 mg Documented by: Sodium Chloride (Sodium Chloride Flush Syringe 10 Ml) 10 ml IV BID [facility] Last Admin: 03/12/19 10:17 Dose: 10 ml Documented by: Sodium Chloride (Sodium Chloride Flush Syringe 10 Ml) 10 ml IV PRN PRN PRN Reason: LINE FLUSH Last Admin: 03/10/19 01:50 Dose: 10 ml Documented by: Review of Systems All systems: negative Physical Examination Vital signs: Vital Signs Temp Pulse Resp BP Pulse Ox 98.3 F 74 18 138/89 100 03/08/19 19:42 03/08/19 19:42 03/08/19 19:42 03/08/19 19:42 03/08/19 19:42 General appearance: no acute distress, alert Eyes: non-icteric ENT: oropharynx moist Neck: supple Ascultation: Bilateral: diminished breath sounds Results - Laboratory Findings CBC and BMP: 03/10/19 14:32 03/09/19 05:47 PT/INR, D-dimer PT 12.9 Sec. (12.2-14.9) 03/08/19 22:36 INR 0.92 (0.87-1.13) 03/08/19 22:36 Abnormal lab findings: Abnormal Labs 03/08/19 03/09/19 03/09/19 22:36 00:50 04:52 Hgb 10.7 L 9.0 L Hct 32.3 L 28.1 L MCV 76 L 77 L MCH 25 L 25 L RDW 22.2 H 24.5 H Rooks % (Auto) 11.7 H Rooks # 0.9 H Seg Neuts % (Manual) Monocytes % (Manual) 10.0 H Eosinophils % (Manual) 5.0 H Lymphocytes # (Manual) Glucose Lactate Dehydrogenase 327 H 03/09/19 03/09/19 03/10/19 05:47 12:36 14:32 Hgb 10.7 L 11.3 L Hct 32.8 L 33.9 L MCV 76 L MCH 25 L RDW 22.3 H Rooks % (Auto) Rooks # Seg Neuts % (Manual) 81.0 H Monocytes % (Manual) Eosinophils % (Manual) Lymphocytes # (Manual) 1.1 L Glucose 101 H Lactate Dehydrogenase - Diagnostic Findings Chest x-ray: image reviewed Assessment and Plan 34 y/o with hemoptysis. 1. Will attempt to have IV team place Midline vs picc for IV contrast placement and then perform CTA to evaluate for PE 2. If not able to get access, could do V/Q scan and Lower Ext Dopplers 3. Would not feel comfortable with empiric therapy at this point. 4. If that work up is negative, agree with ID in regards to antibotic/antiviral treatment plan.
[2019-03-12 16:34] LABS: Basophils # (Auto) 0.1 K/mm3 (0.0-0.1); Basophils % (Auto) 1.3 % (0.0-1.8); Hemoglobin 10.4 gm/dl (11.8-15.2); Lymphocytes # (Auto) 1.7 K/mm3 (1.2-5.4); Mean Corpuscular HGB Conc 33 % (32-34); Mean Corpuscular Volume 76 fl (84-94); Monocytes # (Auto) 0.2 K/mm3 (0.0-0.8); Monocytes % (Auto) 4.7 % (0.0-7.3); Platelet Count 247 K/mm3 (140-440); Red Blood Count 4.21 M/mm3 (3.65-5.03)
[2019-03-12 16:41] LABS: Red Cell Distribution Width 21.8 % (13.2-15.2)
[2019-03-13] MEDS: BACTRIM IV SCH ×4 (00:55→17:58)
[2019-03-13] MEDS: D5W IV SCH ×4 (00:55→17:58)
[2019-03-13] MEDS: DILAUDID IV PRN ×6 (02:56→22:25)
[2019-03-13] MEDS: ROCEPHIN/NS 1 GM/50 ML 1 GM/50 ML BAG IV SCH (06:46)
--- NOTE | 2019-03-13 09:29 | Progress Note ---
Assessment and Plan Assessment and plan: Bilateral pneumonia, community acquired versus PCP CT Chest unremarkable, hiatal hernia Cont Bactrim iv, Ceftriaxone Hematemesis He has history of pulm embolism Discussed with Pulmonology CTAngio chest ordered to r/o Pulm embolism Rectal bleed due to internal hemorrhoids He was evaluated by GI. Conservative management Esophagitis Micafungin Oropharyngeal candidiasis Micafungin Abdominal pain HIV infection He goes to Dr. Jose Alejandro Bar ID Physician following Noncompliance. I discussed with him importance of compliance. History Interval history: feels better No more blood in stools Coughing up blood Hospitalist Physical - Physical exam Narrative exam: Gen: Not in acute distress, lying in bed HEENT: Normocephalic, atraumatic Heart: S1 and S2 reg, no murmurs, rubs or gallop Lungs: Clear no crackles Abd: soft, non tender, non distended, normal BS Ext: No edema, no clubbing, no cyanosis Neuro: AAO x 3, no focal signs, moves all ext Psych:Normal mood - Constitutional Vitals: Temp Pulse Resp BP Pulse Ox 97.8 F 80 16 116/76 100 03/13/19 05:28 03/13/19 05:28 03/13/19 05:28 03/13/19 05:28 03/13/19 05:28 Results - Labs CBC & Chem 7: 03/12/19 16:12 03/09/19 05:47 Labs: Laboratory Last Values WBC 4.4 K/mm3 (4.5-11.0) L 03/12/19 16:12 RBC 4.21 M/mm3 (3.65-5.03) 03/12/19 16:12 Hgb 10.4 gm/dl (11.8-15.2) L 03/12/19 16:12 Hct 32.0 % (35.5-45.6) L 03/12/19 16:12 MCV 76 fl (84-94) L 03/12/19 16:12 MCH 25 pg (28-32) L 03/12/19 16:12 MCHC 33 % (32-34) 03/12/19 16:12 RDW 21.8 % (13.2-15.2) H 03/12/19 16:12 Plt Count 247 K/mm3 (140-440) 03/12/19 16:12 Lymph % (Auto) 39.0 % (13.4-35.0) H 03/12/19 16:12 [place] % (Auto) 4.7 % (0.0-7.3) 03/12/19 16:12 Eos % (Auto) 1.0 % (0.0-4.3) 03/12/19 16:12 Baso % (Auto) 1.3 % (0.0-1.8) 03/12/19 16:12 Lymph # 1.7 K/mm3 (1.2-5.4) 03/12/19 16:12 [place] # 0.2 K/mm3 (0.0-0.8) 03/12/19 16:12 Eos # 0.0 K/mm3 (0.0-0.4) 03/12/19 16:12 Baso # 0.1 K/mm3 (0.0-0.1) 03/12/19 16:12 Add Manual Diff Complete 03/10/19 14:32 Total Counted 100 03/10/19 14:32 Seg Neutrophils % 54.0 % (40.0-70.0) 03/12/19 16:12 Seg Neuts % (Manual) 81.0 % (40.0-70.0) H 03/10/19 14:32 Band Neutrophils % 0 % 03/10/19 14:32 Lymphocytes % (Manual) 15.0 % (13.4-35.0) 03/10/19 14:32 Reactive Lymphs % (Man) 0 % 03/10/19 14:32 Monocytes % (Manual) 3.0 % (0.0-7.3) 03/10/19 14:32 Eosinophils % (Manual) 1.0 % (0.0-4.3) 03/10/19 14:32 Basophils % (Manual) 0 % (0.0-1.8) 03/10/19 14:32 Metamyelocytes % 0 % 03/10/19 14:32 Myelocytes % 0 % 03/10/19 14:32 Promyelocytes % 0 % 03/10/19 14:32 Blast Cells % 0 % 03/10/19 14:32 Nucleated RBC % Not Reportable 03/10/19 14:32 Seg Neutrophils # 2.4 K/mm3 (1.8-7.7) 03/12/19 16:12 Seg Neutrophils # Man 5.9 K/mm3 (1.8-7.7) 03/10/19 14:32 Band Neutrophils # 0.0 K/mm3 03/10/19 14:32 Lymphocytes # (Manual) 1.1 K/mm3 (1.2-5.4) L 03/10/19 14:32 Abs React Lymphs (Man) 0.0 K/mm3 03/10/19 14:32 Monocytes # (Manual) 0.2 K/mm3 (0.0-0.8) 03/10/19 14:32 Eosinophils # (Manual) 0.1 K/mm3 (0.0-0.4) 03/10/19 14:32 Basophils # (Manual) 0.0 K/mm3 (0.0-0.1) 03/10/19 14:32 Metamyelocytes # 0.0 K/mm3 03/10/19 14:32 Myelocytes # 0.0 K/mm3 03/10/19 14:32 Promyelocytes # 0.0 K/mm3 03/10/19 14:32 Blast Cells # 0.0 K/mm3 03/10/19 14:32 WBC Morphology Not Reportable 03/10/19 14:32 Hypersegmented Neuts Not Reportable 03/10/19 14:32 Hyposegmented Neuts Not Reportable 03/10/19 14:32 Hypogranular Neuts Not Reportable 03/10/19 14:32 Smudge Cells Not Reportable 03/10/19 14:32 Toxic Granulation Not Reportable 03/10/19 14:32 Toxic Vacuolation Not Reportable 03/10/19 14:32 Dohle Bodies Not Reportable 03/10/19 14:32 Pelger-Huet Anomaly Not Reportable 03/10/19 14:32 Marco A Rods Not Reportable 03/10/19 14:32 Platelet Estimate Not Reportable 03/10/19 14:32 Clumped Platelets Not Reportable 03/10/19 14:32 Plt Clumps, EDTA Not Reportable 03/10/19 14:32 Large Platelets Not Reportable 03/10/19 14:32 Giant Platelets Not Reportable 03/10/19 14:32 Platelet Satelliting Not Reportable 03/10/19 14:32 Plt Morphology Comment Not Reportable 03/10/19 14:32 RBC Morphology Normal 03/10/19 14:32 Dimorphic RBCs Not Reportable 03/10/19 14:32 Polychromasia Not Reportable 03/10/19 14:32 Hypochromasia Not Reportable 03/10/19 14:32 Poikilocytosis Not Reportable 03/10/19 14:32 Anisocytosis Not Reportable 03/10/19 14:32 Microcytosis Not Reportable 03/10/19 14:32 Macrocytosis Not Reportable 03/10/19 14:32 Spherocytes Not Reportable 03/10/19 14:32 Pappenheimer Bodies Not Reportable 03/10/19 14:32 Sickle Cells Not Reportable 03/10/19 14:32 Target Cells Not Reportable 03/10/19 14:32 Tear Drop Cells Not Reportable 03/10/19 14:32 Ovalocytes Not Reportable 03/10/19 14:32 Helmet Cells Not Reportable 03/10/19 14:32 [place] Bodies Not Reportable 03/10/19 14:32 [place] Rings Not Reportable 03/10/19 14:32 [place] Cells Not Reportable 03/10/19 14:32 Bite Cells Not Reportable 03/10/19 14:32 Crenated Cell Not Reportable 03/10/19 14:32 Elliptocytes Not Reportable 03/10/19 14:32 Acanthocytes (Spur) Not Reportable 03/10/19 14:32 Rouleaux Not Reportable 03/10/19 14:32 Hemoglobin C Crystals Not Reportable 03/10/19 14:32 Schistocytes Not Reportable 03/10/19 14:32 Malaria parasites Not Reportable 03/10/19 14:32 Sander Bodies Not Reportable 03/10/19 14:32 Hem Pathologist Commnt No 03/10/19 14:32 PT 12.9 Sec. (12.2-14.9) 03/08/19 22:36 INR 0.92 (0.87-1.13) 03/08/19 22:36 APTT 25.9 Sec. (24.2-36.6) 03/08/19 22:36 Sodium 143 mmol/L (137-145) 03/09/19 05:47 Potassium 3.6 mmol/L (3.6-5.0) 03/09/19 05:47 Chloride 102.2 mmol/L (98-107) 03/09/19 05:47 Carbon Dioxide 27 mmol/L (22-30) 03/09/19 05:47 Anion Gap 17 mmol/L 03/09/19 05:47 BUN 9 mg/dL (9-20) 03/09/19 05:47 Creatinine 0.8 mg/dL (0.8-1.5) 03/09/19 05:47 Estimated GFR > 60 ml/min 03/09/19 05:47 BUN/Creatinine Ratio 11 % 03/09/19 05:47 Glucose 101 mg/dL (75-100) H 03/09/19 05:47 Calcium 9.0 mg/dL (8.4-10.2) 03/09/19 05:47 Total Bilirubin < 0.20 mg/dL (0.1-1.2) 03/08/19 22:36 AST 21 units/L (5-40) 03/08/19 22:36 ALT 20 units/L (7-56) 03/08/19 22:36 Alkaline Phosphatase 88 units/L (35-129) 03/08/19 22:36 Lactate Dehydrogenase 327 units/L (91-180) H 03/08/19 22:36 Total Protein 8.2 g/dL (6.3-8.2) 03/08/19 22:36 Albumin 4.0 g/dL (3.9-5) 03/08/19 22:36 Albumin/Globulin Ratio 1.0 % 03/08/19 22:36 Urine Color Yellow (Yellow) 03/09/19 10:00 Urine Turbidity Clear (Clear) 03/09/19 10:00 Urine pH 7.0 (5.0-7.0) 03/09/19 10:00 Ur Specific [place] 1.027 (1.003-1.030) 03/09/19 10:00 Urine Protein <15 mg/dl mg/dL (Negative) 03/09/19 10:00 Urine Glucose (UA) Neg mg/dL (Negative) 03/09/19 10:00 Urine Ketones Neg mg/dL (Negative) 03/09/19 10:00 Urine Blood Neg (Negative) 03/09/19 10:00 Urine Nitrite Neg (Negative) 03/09/19 10:00 Urine Bilirubin Neg (Negative) 03/09/19 10:00 Urine Urobilinogen < 2.0 mg/dL (<2.0) 03/09/19 10:00 Ur Leukocyte Esterase Neg (Negative) 03/09/19 10:00 Urine WBC (Auto) 1.0 /HPF (0.0-6.0) 03/09/19 10:00 Urine RBC (Auto) 1.0 /HPF (0.0-6.0) 03/09/19 10:00 Urine Mucus Few /HPF 03/09/19 10:00 Active Medications - Current Medications Current Medications: Generic Name Dose Route Start Last Admin Trade Name Freq PRN Reason Stop Dose Admin Abacavir Sulfate 600 mg 03/09/19 15:00 03/12/19 10:18 Ziagen PO 600 mg DAILY TALITA Administration Acetaminophen 650 mg 03/09/19 04:38 Tylenol PO Q4H PRN Pain MILD(1-3)/Fever >100.5/BENNETT Hydrocortisone Acetate 1 applic 03/09/19 14:14 Proctosol-Hc WI Q8H PRN Hemorrhoids Hydromorphone HCl 0.5 mg 03/09/19 16:45 03/13/19 06:43 Dilaudid IV 0.5 mg Q4H PRN Administration Pain , Severe (7-10) Ceftriaxone Sodium 1 gm in 50 mls @ 100 mls/hr 03/09/19 06:00 03/13/19 06:46 Rocephin/Ns 1 Gm/50 Ml IV 100 mls/hr Q24H TALITA Administration Protocol Trimethoprim/Sulfamethoxazole 529.6875 mls @ 350 mls/hr 03/09/19 16:00 03/13/19 06:47 475 mg/ Dextrose IV 350 mls/hr Q6HR TALITA Administration Protocol Micafungin Sodium 100 mg/ 100 mls @ 100 mls/hr 03/10/19 16:00 03/12/19 12:34 Sodium Chloride IV 100 mls/hr QDAY TALITA Administration Protocol Lamivudine 300 mg 03/09/19 15:00 03/12/19 10:20 Epivir PO 300 mg DAILY TALITA Administration Ondansetron HCl 4 mg 03/09/19 04:38 03/09/19 19:40 Zofran IV 4 mg Q8H PRN Administration Nausea And Vomiting Pantoprazole Sodium 40 mg 03/11/19 10:00 03/12/19 22:07 Protonix PO 40 mg BID TALITA Administration Sodium Chloride 10 ml 03/09/19 10:00 03/12/19 22:08 Sodium Chloride Flush Syringe 10 Ml IV 10 ml BID TALITA Administration Sodium Chloride 10 ml 03/09/19 04:38 03/10/19 01:50 Sodium Chloride Flush Syringe 10 Ml IV 10 ml PRN PRN Administration LINE FLUSH
--- NOTE | 2019-03-13 09:31 | Progress Note ---
Assessment and Plan 34 y/o with hemoptysis. 1. CTA to evaluate for PE 2. 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 3. Smoking cessation . Subjective Date of service: 03/13/19 Principal diagnosis: GI bleed Interval history: Midline placed. Awaiting CTA. Objective Vital Signs - 12hr 03/12/19 03/13/19 23:17 05:28 Temperature 98.1 F 97.8 F Pulse Rate 87 80 Respiratory 16 16 Rate Blood Pressure 116/78 116/76 O2 Sat by Pulse 100 100 Oximetry Constitutional: no acute distress, alert Eyes: non-icteric ENT: oropharynx moist Neck: supple Ascultation: Bilateral: diminished breath sounds CBC and BMP: 03/12/19 16:12 03/09/19 05:47 ABG, PT/INR, D-dimer: PT/INR, D-dimer PT 12.9 Sec. (12.2-14.9) 03/08/19 22:36 INR 0.92 (0.87-1.13) 03/08/19 22:36 Abnormal lab findings: Abnormal Labs 03/08/19 03/09/19 03/09/19 22:36 00:50 04:52 WBC Hgb 10.7 L 9.0 L Hct 32.3 L 28.1 L MCV 76 L 77 L MCH 25 L 25 L RDW 22.2 H 24.5 H Lymph % (Auto) [place] % (Auto) 11.7 H [place] # 0.9 H Seg Neuts % (Manual) Monocytes % (Manual) 10.0 H Eosinophils % (Manual) 5.0 H Lymphocytes # (Manual) Glucose Lactate Dehydrogenase 327 H 03/09/19 03/09/19 03/10/19 05:47 12:36 14:32 WBC Hgb 10.7 L 11.3 L Hct 32.8 L 33.9 L MCV 76 L MCH 25 L RDW 22.3 H Lymph % (Auto) [place] % (Auto) [place] # Seg Neuts % (Manual) 81.0 H Monocytes % (Manual) Eosinophils % (Manual) Lymphocytes # (Manual) 1.1 L Glucose 101 H Lactate Dehydrogenase 03/12/19 16:12 WBC 4.4 L Hgb 10.4 L Hct 32.0 L MCV 76 L MCH 25 L RDW 21.8 H Lymph % (Auto) 39.0 H [place] % (Auto) [place] # Seg Neuts % (Manual) Monocytes % (Manual) Eosinophils % (Manual) Lymphocytes # (Manual) Glucose Lactate Dehydrogenase
[2019-03-13] MEDS: ZOFRAN IV PRN (10:08)
[2019-03-13] MEDS: PROTONIX PO SCH ×2 (10:23→23:44)
[2019-03-13] MEDS: EPIVIR PO SCH (10:24)
[2019-03-13] MEDS: ZIAGEN PO SCH (10:26)
[2019-03-13] MEDS: TIVICAY PO SCH (10:27)
[2019-03-13] MEDS: MYCAMINE 100 MG in NACL 0.9% 100 ML IV SCH (11:11)
[2019-03-13] MEDS: SODIUM CHLORIDE FLUSH SYRINGE 10 ML IV SCH ×2 (11:20→22:24)
[2019-03-13] MEDS ORDERED: PEPCID PO NR (18:00)
[2019-03-13] MEDS ORDERED: PEPCID PO ONE (18:00)
[2019-03-13] MEDS ORDERED: BENADRYL PO ONE (18:00)
[2019-03-13] MEDS ORDERED: DELTASONE PO ONE ×2 (18:00)
[2019-03-13 21:32] LABS: HIV-1 RNA QN PCR 4.57 Log cps/mL
[2019-03-14] MEDS ORDERED: DELTASONE PO ONE ×4 (00:01→06:00)
[2019-03-14] MEDS ORDERED: PEPCID PO ONE ×2 (00:01→06:00)
[2019-03-14] MEDS ORDERED: BENADRYL PO ONE (00:01)
[2019-03-14] MEDS: D5W IV SCH ×4 (00:50→17:27)
[2019-03-14] MEDS: BACTRIM IV SCH ×4 (00:50→17:27)
[2019-03-14] MEDS: SODIUM CHLORIDE FLUSH SYRINGE 10 ML IV PRN ×4 (00:53→20:26)
[2019-03-14] MEDS: DILAUDID IV PRN ×5 (03:03→20:24)
[2019-03-14] MEDS ORDERED: BENADRYL PO NR (06:00)
[2019-03-14] MEDS: ROCEPHIN/NS 1 GM/50 ML 1 GM/50 ML BAG IV SCH (07:43)
--- NOTE | 2019-03-14 09:05 | Cat Scan Report ---
EXAM: CT ANGIO CHEST HISTORY: hematemesis, possible pulm embolism TECHNIQUE: Spiral axial CT images with sagittal and coronal reformatted images are obtained through the chest with the administration of intravenous contrast. DOSIMETRY: Total DLP: 700.68 mGycm COMPARISON: None available. FINDINGS: CARDIOVASCULAR: There is no evidence for pulmonary embolic disease. The heart size and mediastinal va scular structures are within normal limits. There is no significant aortic or coronary atheroscleros is seen. No thoracic aortic aneurysm or dissection is noted. MEDIASTINUM AND LISA: No mass lesion, lymphadenopathy, emphysema, or abnormal fluid collection is see n. LUNGS: There is no acute parenchymal infiltrate, lung nodule, or endobronchial obstructing lesion see n. No pleural effusion or pneumothorax is evident. CHEST WALL: There are no chest wall lesions seen. The visualized bony structures are within normal l imits. No axillary lymphadenopathy is noted. UPPER ABDOMEN: Limited views through the upper abdomen demonstrate no gross acute abnormality. IMPRESSION: 1. No evidence for pulmonary embolic disease. 2. No evidence for aortic aneurysm or aortic dissection. 3. No acute parenchymal infiltrate, pleural effusion, or pneumothorax seen. 4. No gross endobronchial obstructing lesion is seen. This document is electronically signed by Washington Alonzo MD., March 14 2019 09:03:24 AM ET
[2019-03-14] MEDS: ZIAGEN PO SCH (09:34)
[2019-03-14] MEDS: TIVICAY PO SCH (09:35)
[2019-03-14] MEDS: EPIVIR PO SCH (09:35)
[2019-03-14] MEDS: PROTONIX PO SCH ×2 (09:35→22:35)
[2019-03-14] MEDS: SODIUM CHLORIDE FLUSH SYRINGE 10 ML IV SCH (09:37)
--- NOTE | 2019-03-14 09:37 | Progress Note ---
Assessment and Plan Assessment and plan: Bilateral pneumonia, community acquired versus PCP CT Chest unremarkable, hiatal hernia Cont Bactrim iv, Ceftriaxone CT Angio neg Hematemesis He has history of pulm embolism Discussed with Pulmonology CTAngio chest neg for Pulm embolism Rectal bleed due to internal hemorrhoids He was evaluated by GI. Conservative management Esophagitis Micafungin Oropharyngeal candidiasis Micafungin Abdominal pain HIV infection He goes to Dr. Jose Alejandro Bar as outpatient ID Physician following Noncompliance. I discussed with him importance of compliance. History Interval history: feels better No more blood in stools Coughing up blood Hospitalist Physical - Physical exam Narrative exam: Gen: Not in acute distress, lying in bed HEENT: Normocephalic, atraumatic Heart: S1 and S2 reg, no murmurs, rubs or gallop Lungs: Clear, no crackles Abd: soft, non tender, non distended, normal BS Ext: No edema, no clubbing, no cyanosis Neuro: AAO x 3, no focal signs, moves all ext Psych:Normal mood - Constitutional Vitals: Temp Pulse Resp BP Pulse Ox 98.3 F 74 24 97/56 99 03/14/19 05:03 03/14/19 05:03 03/14/19 05:03 03/14/19 05:03 03/14/19 05:03 Results - Labs CBC & Chem 7: 03/12/19 16:12 03/09/19 05:47 Labs: Laboratory Last Values WBC 4.4 K/mm3 (4.5-11.0) L 03/12/19 16:12 RBC 4.21 M/mm3 (3.65-5.03) 03/12/19 16:12 Hgb 10.4 gm/dl (11.8-15.2) L 03/12/19 16:12 Hct 32.0 % (35.5-45.6) L 03/12/19 16:12 MCV 76 fl (84-94) L 03/12/19 16:12 MCH 25 pg (28-32) L 03/12/19 16:12 MCHC 33 % (32-34) 03/12/19 16:12 RDW 21.8 % (13.2-15.2) H 03/12/19 16:12 Plt Count 247 K/mm3 (140-440) 03/12/19 16:12 Lymph % (Auto) 39.0 % (13.4-35.0) H 03/12/19 16:12 [place] % (Auto) 4.7 % (0.0-7.3) 03/12/19 16:12 Eos % (Auto) 1.0 % (0.0-4.3) 03/12/19 16:12 Baso % (Auto) 1.3 % (0.0-1.8) 03/12/19 16:12 Lymph # 1.7 K/mm3 (1.2-5.4) 03/12/19 16:12 [place] # 0.2 K/mm3 (0.0-0.8) 03/12/19 16:12 Eos # 0.0 K/mm3 (0.0-0.4) 03/12/19 16:12 Baso # 0.1 K/mm3 (0.0-0.1) 03/12/19 16:12 Add Manual Diff Complete 03/10/19 14:32 Total Counted 100 03/10/19 14:32 Seg Neutrophils % 54.0 % (40.0-70.0) 03/12/19 16:12 Seg Neuts % (Manual) 81.0 % (40.0-70.0) H 03/10/19 14:32 Band Neutrophils % 0 % 03/10/19 14:32 Lymphocytes % (Manual) 15.0 % (13.4-35.0) 03/10/19 14:32 Reactive Lymphs % (Man) 0 % 03/10/19 14:32 Monocytes % (Manual) 3.0 % (0.0-7.3) 03/10/19 14:32 Eosinophils % (Manual) 1.0 % (0.0-4.3) 03/10/19 14:32 Basophils % (Manual) 0 % (0.0-1.8) 03/10/19 14:32 Metamyelocytes % 0 % 03/10/19 14:32 Myelocytes % 0 % 03/10/19 14:32 Promyelocytes % 0 % 03/10/19 14:32 Blast Cells % 0 % 03/10/19 14:32 Nucleated RBC % Not Reportable 03/10/19 14:32 Seg Neutrophils # 2.4 K/mm3 (1.8-7.7) 03/12/19 16:12 Seg Neutrophils # Man 5.9 K/mm3 (1.8-7.7) 03/10/19 14:32 Band Neutrophils # 0.0 K/mm3 03/10/19 14:32 Lymphocytes # (Manual) 1.1 K/mm3 (1.2-5.4) L 03/10/19 14:32 Abs React Lymphs (Man) 0.0 K/mm3 03/10/19 14:32 Monocytes # (Manual) 0.2 K/mm3 (0.0-0.8) 03/10/19 14:32 Eosinophils # (Manual) 0.1 K/mm3 (0.0-0.4) 03/10/19 14:32 Basophils # (Manual) 0.0 K/mm3 (0.0-0.1) 03/10/19 14:32 Metamyelocytes # 0.0 K/mm3 03/10/19 14:32 Myelocytes # 0.0 K/mm3 03/10/19 14:32 Promyelocytes # 0.0 K/mm3 03/10/19 14:32 Blast Cells # 0.0 K/mm3 03/10/19 14:32 WBC Morphology Not Reportable 03/10/19 14:32 Hypersegmented Neuts Not Reportable 03/10/19 14:32 Hyposegmented Neuts Not Reportable 03/10/19 14:32 Hypogranular Neuts Not Reportable 03/10/19 14:32 Smudge Cells Not Reportable 03/10/19 14:32 Toxic Granulation Not Reportable 03/10/19 14:32 Toxic Vacuolation Not Reportable 03/10/19 14:32 Dohle Bodies Not Reportable 03/10/19 14:32 Pelger-Huet Anomaly Not Reportable 03/10/19 14:32 Marco A Rods Not Reportable 03/10/19 14:32 Platelet Estimate Not Reportable 03/10/19 14:32 Clumped Platelets Not Reportable 03/10/19 14:32 Plt Clumps, EDTA Not Reportable 03/10/19 14:32 Large Platelets Not Reportable 03/10/19 14:32 Giant Platelets Not Reportable 03/10/19 14:32 Platelet Satelliting Not Reportable 03/10/19 14:32 Plt Morphology Comment Not Reportable 03/10/19 14:32 RBC Morphology Normal 03/10/19 14:32 Dimorphic RBCs Not Reportable 03/10/19 14:32 Polychromasia Not Reportable 03/10/19 14:32 Hypochromasia Not Reportable 03/10/19 14:32 Poikilocytosis Not Reportable 03/10/19 14:32 Anisocytosis Not Reportable 03/10/19 14:32 Microcytosis Not Reportable 03/10/19 14:32 Macrocytosis Not Reportable 03/10/19 14:32 Spherocytes Not Reportable 03/10/19 14:32 Pappenheimer Bodies Not Reportable 03/10/19 14:32 Sickle Cells Not Reportable 03/10/19 14:32 Target Cells Not Reportable 03/10/19 14:32 Tear Drop Cells Not Reportable 03/10/19 14:32 Ovalocytes Not Reportable 03/10/19 14:32 Helmet Cells Not Reportable 03/10/19 14:32 [place] Bodies Not Reportable 03/10/19 14:32 [place] Rings Not Reportable 03/10/19 14:32 [place] Cells Not Reportable 03/10/19 14:32 Bite Cells Not Reportable 03/10/19 14:32 Crenated Cell Not Reportable 03/10/19 14:32 Elliptocytes Not Reportable 03/10/19 14:32 Acanthocytes (Spur) Not Reportable 03/10/19 14:32 Rouleaux Not Reportable 03/10/19 14:32 Hemoglobin C Crystals Not Reportable 03/10/19 14:32 Schistocytes Not Reportable 03/10/19 14:32 Malaria parasites Not Reportable 03/10/19 14:32 Sander Bodies Not Reportable 03/10/19 14:32 Hem Pathologist Commnt No 03/10/19 14:32 PT 12.9 Sec. (12.2-14.9) 03/08/19 22:36 INR 0.92 (0.87-1.13) 03/08/19 22:36 APTT 25.9 Sec. (24.2-36.6) 03/08/19 22:36 Sodium 143 mmol/L (137-145) 03/09/19 05:47 Potassium 3.6 mmol/L (3.6-5.0) 03/09/19 05:47 Chloride 102.2 mmol/L (98-107) 03/09/19 05:47 Carbon Dioxide 27 mmol/L (22-30) 03/09/19 05:47 Anion Gap 17 mmol/L 03/09/19 05:47 BUN 9 mg/dL (9-20) 03/09/19 05:47 Creatinine 0.8 mg/dL (0.8-1.5) 03/09/19 05:47 Estimated GFR > 60 ml/min 03/09/19 05:47 BUN/Creatinine Ratio 11 % 03/09/19 05:47 Glucose 101 mg/dL (75-100) H 03/09/19 05:47 Calcium 9.0 mg/dL (8.4-10.2) 03/09/19 05:47 Total Bilirubin < 0.20 mg/dL (0.1-1.2) 03/08/19 22:36 AST 21 units/L (5-40) 03/08/19 22:36 ALT 20 units/L (7-56) 03/08/19 22:36 Alkaline Phosphatase 88 units/L (35-129) 03/08/19 22:36 Lactate Dehydrogenase 327 units/L (91-180) H 03/08/19 22:36 Total Protein 8.2 g/dL (6.3-8.2) 03/08/19 22:36 Albumin 4.0 g/dL (3.9-5) 03/08/19 22:36 Albumin/Globulin Ratio 1.0 % 03/08/19 22:36 Urine Color Yellow (Yellow) 03/09/19 10:00 Urine Turbidity Clear (Clear) 03/09/19 10:00 Urine pH 7.0 (5.0-7.0) 03/09/19 10:00 Ur Specific [place] 1.027 (1.003-1.030) 03/09/19 10:00 Urine Protein <15 mg/dl mg/dL (Negative) 03/09/19 10:00 Urine Glucose (UA) Neg mg/dL (Negative) 03/09/19 10:00 Urine Ketones Neg mg/dL (Negative) 03/09/19 10:00 Urine Blood Neg (Negative) 03/09/19 10:00 Urine Nitrite Neg (Negative) 03/09/19 10:00 Urine Bilirubin Neg (Negative) 03/09/19 10:00 Urine Urobilinogen < 2.0 mg/dL (<2.0) 03/09/19 10:00 Ur Leukocyte Esterase Neg (Negative) 03/09/19 10:00 Urine WBC (Auto) 1.0 /HPF (0.0-6.0) 03/09/19 10:00 Urine RBC (Auto) 1.0 /HPF (0.0-6.0) 03/09/19 10:00 Urine Mucus Few /HPF 03/09/19 10:00 HIV-1 RNA PCR copies/ml [id number] Copies/mL H 03/10/19 14:32 HIV-1 RNA (PCR) log 4.57 Log cps/mL H 03/10/19 14:32 Active Medications - Current Medications Current Medications: Generic Name Dose Route Start Last Admin Trade Name Freq PRN Reason Stop Dose Admin Abacavir Sulfate 600 mg 03/09/19 15:00 03/13/19 10:26 Ziagen PO 600 mg DAILY TALITA Administration Acetaminophen 650 mg 03/09/19 04:38 Tylenol PO Q4H PRN Pain MILD(1-3)/Fever >100.5/BENNETT Hydrocortisone Acetate 1 applic 03/09/19 14:14 Proctosol-Hc CT Q8H PRN Hemorrhoids Hydromorphone HCl 0.5 mg 03/09/19 16:45 03/14/19 07:37 Dilaudid IV 0.5 mg Q4H PRN Administration Pain , Severe (7-10) Ceftriaxone Sodium 1 gm in 50 mls @ 100 mls/hr 03/09/19 06:00 03/14/19 07:43 Rocephin/Ns 1 Gm/50 Ml IV 100 mls/hr Q24H TALITA Administration Protocol Trimethoprim/Sulfamethoxazole 529.6875 mls @ 350 mls/hr 03/09/19 16:00 03/14/19 05:58 475 mg/ Dextrose IV 350 mls/hr Q6HR TALITA Administration Protocol Micafungin Sodium 100 mg/ 100 mls @ 100 mls/hr 03/10/19 16:00 03/13/19 11:11 Sodium Chloride IV 100 mls/hr QDAY TALITA Administration Protocol Lamivudine 300 mg 03/09/19 15:00 03/13/19 10:24 Epivir PO 300 mg DAILY TALITA Administration Ondansetron HCl 4 mg 03/09/19 04:38 03/13/19 10:08 Zofran IV 4 mg Q8H PRN Administration Nausea And Vomiting Pantoprazole Sodium 40 mg 03/13/19 22:00 03/13/19 23:44 Protonix PO 40 mg BID TALITA Administration Sodium Chloride 10 ml 03/09/19 10:00 03/13/19 22:24 Sodium Chloride Flush Syringe 10 Ml IV 10 ml BID TALITA Administration Sodium Chloride 10 ml 03/09/19 04:38 03/14/19 05:59 Sodium Chloride Flush Syringe 10 Ml IV 10 ml PRN PRN Administration LINE FLUSH
[2019-03-14] MEDS: MYCAMINE 100 MG in NACL 0.9% 100 ML IV SCH (09:54)
[2019-03-14 10:06] LABS: BUN/Creatinine Ratio 9; Blood Urea Nitrogen 10 mg/dL (9-20); Calcium 9.2 mg/dL (8.4-10.2); Hemolysis Index 20
[2019-03-14 10:13] LABS: Hemoglobin 11.8 gm/dl (11.8-15.2); Mean Corpuscular HGB Conc 33 % (32-34); Mean Corpuscular Volume 75 fl (84-94); Platelet Count 276 K/mm3 (140-440); Red Blood Count 4.79 M/mm3 (3.65-5.03)
--- NOTE | 2019-03-14 10:26 | Progress Note ---
Assessment and Plan 34 y/o with hemoptysis. 1. Negative CTA so would proceed with ID plan for antiviral therapy 2. Smoking cessation 3. Will ask ID but at this time would not bronch, unless they feel they need airway inspection and BAL . Subjective Date of service: 03/14/19 Principal diagnosis: GI bleed Interval history: CTA negative for PE. Still having some hemoptysis. Objective Vital Signs - 12hr 03/13/19 03/14/19 23:10 05:03 Temperature 98.3 F 98.3 F Pulse Rate 86 74 Respiratory 24 24 Rate Blood Pressure 100/63 97/56 O2 Sat by Pulse 98 99 Oximetry Constitutional: no acute distress, alert Eyes: non-icteric ENT: oropharynx moist Neck: supple Ascultation: Bilateral: diminished breath sounds CBC and BMP: 03/14/19 09:30 03/14/19 09:30 ABG, PT/INR, D-dimer: PT/INR, D-dimer PT 12.9 Sec. (12.2-14.9) 03/08/19 22:36 INR 0.92 (0.87-1.13) 03/08/19 22:36 Abnormal lab findings: Abnormal Labs 03/08/19 03/09/19 03/09/19 22:36 00:50 04:52 WBC Hgb 10.7 L 9.0 L Hct 32.3 L 28.1 L MCV 76 L 77 L MCH 25 L 25 L RDW 22.2 H 24.5 H Lymph % (Auto) [place] % (Auto) 11.7 H [place] # 0.9 H Seg Neuts % (Manual) Monocytes % (Manual) 10.0 H Eosinophils % (Manual) 5.0 H Lymphocytes # (Manual) Sodium Chloride Carbon Dioxide Glucose Lactate Dehydrogenase 327 H HIV-1 RNA PCR copies/ml HIV-1 RNA (PCR) log 03/09/19 03/09/19 03/10/19 05:47 12:36 14:32 WBC Hgb 10.7 L Hct 32.8 L MCV MCH RDW Lymph % (Auto) [place] % (Auto) [place] # Seg Neuts % (Manual) Monocytes % (Manual) Eosinophils % (Manual) Lymphocytes # (Manual) Sodium Chloride Carbon Dioxide Glucose 101 H Lactate Dehydrogenase HIV-1 RNA PCR copies/ml 78071 H HIV-1 RNA (PCR) log 4.57 H 03/10/19 03/12/19 03/14/19 14:32 16:12 09:30 WBC 4.4 L Hgb 11.3 L 10.4 L Hct 33.9 L 32.0 L MCV 76 L 76 L 75 L MCH 25 L 25 L 25 L RDW 22.3 H 21.8 H 22.0 H Lymph % (Auto) 39.0 H [place] % (Auto) [place] # Seg Neuts % (Manual) 81.0 H Monocytes % (Manual) Eosinophils % (Manual) Lymphocytes # (Manual) 1.1 L Sodium Chloride Carbon Dioxide Glucose Lactate Dehydrogenase HIV-1 RNA PCR copies/ml HIV-1 RNA (PCR) log 03/14/19 09:30 WBC Hgb Hct MCV MCH RDW Lymph % (Auto) [place] % (Auto) [place] # Seg Neuts % (Manual) Monocytes % (Manual) Eosinophils % (Manual) Lymphocytes # (Manual) Sodium 129 L Chloride 97.3 L Carbon Dioxide 18 L Glucose 142 H Lactate Dehydrogenase HIV-1 RNA PCR copies/ml HIV-1 RNA (PCR) log
[2019-03-14 13:49] LABS: CD4/CD8 Ratio 0.02 (0.86-5.00)
--- NOTE | 2019-03-14 15:43 | Event Note ---
Date: 03/14/19 CTA chest unremarkable. Patient still with some hemoptysis. Appreciate pulm recs. Will start IV acyclovir as empiric therapy to cover for HSV esophagitis empirically.
[2019-03-14] MEDS: ZOVIRAX IV SCH (18:37)
[2019-03-14] MEDS: NACL 0.9% IV SCH (18:37)
[2019-03-15] MEDS: DILAUDID IV PRN ×6 (00:03→21:10)
[2019-03-15] MEDS: D5W IV SCH ×4 (00:04→18:01)
[2019-03-15] MEDS: BACTRIM IV SCH ×4 (00:04→18:01)
[2019-03-15] MEDS: ZOVIRAX IV SCH ×3 (01:42→16:59)
[2019-03-15] MEDS: NACL 0.9% IV SCH ×3 (01:42→16:59)
[2019-03-15] MEDS: SODIUM CHLORIDE FLUSH SYRINGE 10 ML IV SCH ×3 (01:44→21:11)
[2019-03-15] MEDS: ROCEPHIN/NS 1 GM/50 ML 1 GM/50 ML BAG IV SCH (05:35)
--- NOTE | 2019-03-15 09:08 | Progress Note ---
Assessment and Plan Assessment and plan: Patient is 34 yo with HIV/AIDS, history of coronary embolism status post IVC filter, refractory vito esophagitis, multiple EGD and colonoscopies. She had presented with hematemesis, hemoptysis and blood in stool. He was evaluated in ED. Chest X ray suggested bilat pneumonia. He was started on iv Abx admitted. GI, Pulm and ID consulted. GI recommend conservative management since H/H stable. ID initiated Ceftriaxone , Bactrim iv for possible PCP pneumonia, Micafungin for esophagitis. CT angio was negative for PE. Patient continued to have hematemesis. 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 For bronchoscopy within next few days. Bilateral pneumonia, community acquired versus PCP CT Chest unremarkable, hiatal hernia Cont Bactrim iv, Ceftriaxone CT Angio negative for PE Hemoptysis He has history of pulm embolism Discussed with Pulmonology CTAngio chest neg for Pulm embolism Still coughing blood For bronchoscopy next few days Rectal bleed due to internal hemorrhoids He was evaluated by GI. Conservative management Esophagitis Micafungin Abdominal pain HIV/AIDS infection He goes to Dr. Jose Alejandro Bar as outpatient ID Physician following Noncompliance. I discussed with him importance of compliance. History Interval history: Still coughing up blood Hospitalist Physical - Physical exam Narrative exam: Gen: Not in acute distress, sitting up in bed HEENT: Normocephalic, atraumatic Heart: S1 and S2 reg, no murmurs, rubs or gallop Lungs: Clear, no crackles Abd: soft, non tender, non distended, normal BS Ext: No edema, no clubbing, no cyanosis Neuro: AAO x 3, no focal signs, moves all ext Psych:Normal mood - Constitutional Vitals: Temp Pulse Resp BP Pulse Ox 97.5 F L 102 H 18 123/64 98 03/15/19 05:30 03/15/19 05:30 03/15/19 06:05 03/15/19 05:30 03/15/19 05:30 Results - Labs CBC & Chem 7: 03/14/19 09:30 03/14/19 09:30 Labs: Laboratory Last Values WBC 6.7 K/mm3 (4.5-11.0) 03/14/19 09:30 RBC 4.79 M/mm3 (3.65-5.03) 03/14/19 09:30 Hgb 11.8 gm/dl (11.8-15.2) 03/14/19 09:30 Hct 36.0 % (35.5-45.6) 03/14/19 09:30 MCV 75 fl (84-94) L 03/14/19 09:30 MCH 25 pg (28-32) L 03/14/19 09:30 MCHC 33 % (32-34) 03/14/19 09:30 RDW 22.0 % (13.2-15.2) H 03/14/19 09:30 Plt Count 276 K/mm3 (140-440) 03/14/19 09:30 Lymph % (Auto) 39.0 % (13.4-35.0) H 03/12/19 16:12 [place] % (Auto) 4.7 % (0.0-7.3) 03/12/19 16:12 Eos % (Auto) 1.0 % (0.0-4.3) 03/12/19 16:12 Baso % (Auto) 1.3 % (0.0-1.8) 03/12/19 16:12 Lymph # 1.7 K/mm3 (1.2-5.4) 03/12/19 16:12 [place] # 0.2 K/mm3 (0.0-0.8) 03/12/19 16:12 Eos # 0.0 K/mm3 (0.0-0.4) 03/12/19 16:12 Baso # 0.1 K/mm3 (0.0-0.1) 03/12/19 16:12 Add Manual Diff Complete 03/10/19 14:32 Total Counted 100 03/10/19 14:32 Seg Neutrophils % 54.0 % (40.0-70.0) 03/12/19 16:12 Seg Neuts % (Manual) 81.0 % (40.0-70.0) H 03/10/19 14:32 Band Neutrophils % 0 % 03/10/19 14:32 Lymphocytes % (Manual) 15.0 % (13.4-35.0) 03/10/19 14:32 Reactive Lymphs % (Man) 0 % 03/10/19 14:32 Monocytes % (Manual) 3.0 % (0.0-7.3) 03/10/19 14:32 Eosinophils % (Manual) 1.0 % (0.0-4.3) 03/10/19 14:32 Basophils % (Manual) 0 % (0.0-1.8) 03/10/19 14:32 Metamyelocytes % 0 % 03/10/19 14:32 Myelocytes % 0 % 03/10/19 14:32 Promyelocytes % 0 % 03/10/19 14:32 Blast Cells % 0 % 03/10/19 14:32 Nucleated RBC % Not Reportable 03/10/19 14:32 Seg Neutrophils # 2.4 K/mm3 (1.8-7.7) 03/12/19 16:12 Seg Neutrophils # Man 5.9 K/mm3 (1.8-7.7) 03/10/19 14:32 Band Neutrophils # 0.0 K/mm3 03/10/19 14:32 Abs Lymphs (Manual) 1090 cells/uL (850-3900) 03/10/19 14:32 Lymphocytes # (Manual) 1.1 K/mm3 (1.2-5.4) L 03/10/19 14:32 Abs React Lymphs (Man) 0.0 K/mm3 03/10/19 14:32 Monocytes # (Manual) 0.2 K/mm3 (0.0-0.8) 03/10/19 14:32 Eosinophils # (Manual) 0.1 K/mm3 (0.0-0.4) 03/10/19 14:32 Basophils # (Manual) 0.0 K/mm3 (0.0-0.1) 03/10/19 14:32 Metamyelocytes # 0.0 K/mm3 03/10/19 14:32 Myelocytes # 0.0 K/mm3 03/10/19 14:32 Promyelocytes # 0.0 K/mm3 03/10/19 14:32 Blast Cells # 0.0 K/mm3 03/10/19 14:32 WBC Morphology Not Reportable 03/10/19 14:32 Hypersegmented Neuts Not Reportable 03/10/19 14:32 Hyposegmented Neuts Not Reportable 03/10/19 14:32 Hypogranular Neuts Not Reportable 03/10/19 14:32 Smudge Cells Not Reportable 03/10/19 14:32 Toxic Granulation Not Reportable 03/10/19 14:32 Toxic Vacuolation Not Reportable 03/10/19 14:32 Dohle Bodies Not Reportable 03/10/19 14:32 Pelger-Huet Anomaly Not Reportable 03/10/19 14:32 Marco A Rods Not Reportable 03/10/19 14:32 Platelet Estimate Not Reportable 03/10/19 14:32 Clumped Platelets Not Reportable 03/10/19 14:32 Plt Clumps, EDTA Not Reportable 03/10/19 14:32 Large Platelets Not Reportable 03/10/19 14:32 Giant Platelets Not Reportable 03/10/19 14:32 Platelet Satelliting Not Reportable 03/10/19 14:32 Plt Morphology Comment Not Reportable 03/10/19 14:32 RBC Morphology Normal 03/10/19 14:32 Dimorphic RBCs Not Reportable 03/10/19 14:32 Polychromasia Not Reportable 03/10/19 14:32 Hypochromasia Not Reportable 03/10/19 14:32 Poikilocytosis Not Reportable 03/10/19 14:32 Anisocytosis Not Reportable 03/10/19 14:32 Microcytosis Not Reportable 03/10/19 14:32 Macrocytosis Not Reportable 03/10/19 14:32 Spherocytes Not Reportable 03/10/19 14:32 Pappenheimer Bodies Not Reportable 03/10/19 14:32 Sickle Cells Not Reportable 03/10/19 14:32 Target Cells Not Reportable 03/10/19 14:32 Tear Drop Cells Not Reportable 03/10/19 14:32 Ovalocytes Not Reportable 03/10/19 14:32 Helmet Cells Not Reportable 03/10/19 14:32 [place] Bodies Not Reportable 03/10/19 14:32 [place] Rings Not Reportable 03/10/19 14:32 [place] Cells Not Reportable 03/10/19 14:32 Bite Cells Not Reportable 03/10/19 14:32 Crenated Cell Not Reportable 03/10/19 14:32 Elliptocytes Not Reportable 03/10/19 14:32 Acanthocytes (Spur) Not Reportable 03/10/19 14:32 Rouleaux Not Reportable 03/10/19 14:32 Hemoglobin C Crystals Not Reportable 03/10/19 14:32 Schistocytes Not Reportable 03/10/19 14:32 Malaria parasites Not Reportable 03/10/19 14:32 Sander Bodies Not Reportable 03/10/19 14:32 Hem Pathologist Commnt No 03/10/19 14:32 PT 12.9 Sec. (12.2-14.9) 03/08/19 22:36 INR 0.92 (0.87-1.13) 03/08/19 22:36 APTT 25.9 Sec. (24.2-36.6) 03/08/19 22:36 Sodium 129 mmol/L (137-145) L 03/14/19 09:30 Potassium 4.6 mmol/L (3.6-5.0) 03/14/19 09:30 Chloride 97.3 mmol/L (98-107) L 03/14/19 09:30 Carbon Dioxide 18 mmol/L (22-30) L 03/14/19 09:30 Anion Gap 18 mmol/L 03/14/19 09:30 BUN 10 mg/dL (9-20) 03/14/19 09:30 Creatinine 1.1 mg/dL (0.8-1.5) 03/14/19 09:30 Estimated GFR > 60 ml/min 03/14/19 09:30 BUN/Creatinine Ratio 9 % 03/14/19 09:30 Glucose 142 mg/dL (75-100) H 03/14/19 09:30 Calcium 9.2 mg/dL (8.4-10.2) 03/14/19 09:30 Total Bilirubin < 0.20 mg/dL (0.1-1.2) 03/08/19 22:36 AST 21 units/L (5-40) 03/08/19 22:36 ALT 20 units/L (7-56) 03/08/19 22:36 Alkaline Phosphatase 88 units/L (35-129) 03/08/19 22:36 Lactate Dehydrogenase 327 units/L (91-180) H 03/08/19 22:36 Total Protein 8.2 g/dL (6.3-8.2) 03/08/19 22:36 Albumin 4.0 g/dL (3.9-5) 03/08/19 22:36 Albumin/Globulin Ratio 1.0 % 03/08/19 22:36 Urine Color Yellow (Yellow) 03/09/19 10:00 Urine Turbidity Clear (Clear) 03/09/19 10:00 Urine pH 7.0 (5.0-7.0) 03/09/19 10:00 Ur Specific [place] 1.027 (1.003-1.030) 03/09/19 10:00 Urine Protein <15 mg/dl mg/dL (Negative) 03/09/19 10:00 Urine Glucose (UA) Neg mg/dL (Negative) 03/09/19 10:00 Urine Ketones Neg mg/dL (Negative) 03/09/19 10:00 Urine Blood Neg (Negative) 03/09/19 10:00 Urine Nitrite Neg (Negative) 03/09/19 10:00 Urine Bilirubin Neg (Negative) 03/09/19 10:00 Urine Urobilinogen < 2.0 mg/dL (<2.0) 03/09/19 10:00 Ur Leukocyte Esterase Neg (Negative) 03/09/19 10:00 Urine WBC (Auto) 1.0 /HPF (0.0-6.0) 03/09/19 10:00 Urine RBC (Auto) 1.0 /HPF (0.0-6.0) 03/09/19 10:00 Urine Mucus Few /HPF 03/09/19 10:00 Lymph Enumerat CD4/CD8 0.02 (0.86-5.00) L 03/10/19 14:32 % CD3 Cells 64 % (57-85) 03/10/19 14:32 Absolute CD3 Count 699 cells/uL (840-3060) L 03/10/19 14:32 % CD4 Cells 1 % (30-61) L 03/10/19 14:32 Absolute CD4 Count 16 cells/uL (490-1740) L 03/10/19 14:32 % CD8 Cells 60 % (12-42) H 03/10/19 14:32 Absolute CD8 Count 656 cells/uL (180-1170) 03/10/19 14:32 % CD19 Cells 9 % (6-29) 03/10/19 14:32 Absolute CD19 Count 95 cells/uL (110-660) L 03/10/19 14:32 HIV-1 RNA PCR copies/ml [id number] Copies/mL H 03/10/19 14:32 HIV-1 RNA (PCR) log 4.57 Log cps/mL H 03/10/19 14:32 Miscellaneous Test Flexitest 1 03/10/19 14:32 Active Medications - Current Medications Current Medications: Generic Name Dose Route Start Last Admin Trade Name Freq PRN Reason Stop Dose Admin Abacavir Sulfate 600 mg 03/09/19 15:00 03/14/19 09:34 Ziagen PO 600 mg DAILY TALITA Administration Acetaminophen 650 mg 03/09/19 04:38 Tylenol PO Q4H PRN Pain MILD(1-3)/Fever >100.5/BENNETT Hydrocortisone Acetate 1 applic 03/09/19 14:14 03/14/19 09:36 Proctosol-Hc [place] 1 applic Q8H PRN Administration Hemorrhoids Hydromorphone HCl 0.5 mg 03/09/19 16:45 03/15/19 05:35 Dilaudid IV 0.5 mg Q4H PRN Administration Pain , Severe (7-10) Ceftriaxone Sodium 1 gm in 50 mls @ 100 mls/hr 03/09/19 06:00 03/15/19 05:35 Rocephin/Ns 1 Gm/50 Ml IV 100 mls/hr Q24H TALITA Administration Protocol Trimethoprim/Sulfamethoxazole 529.6875 mls @ 350 mls/hr 03/09/19 16:00 03/15/19 06:03 475 mg/ Dextrose IV 350 mls/hr Q6HR TALITA Administration Protocol Micafungin Sodium 100 mg/ 100 mls @ 100 mls/hr 03/10/19 16:00 03/14/19 09:54 Sodium Chloride IV 100 mls/hr QDAY [facility] Administration Protocol Acyclovir 780 mg/ Sodium 115.6 mls @ 100 mls/hr 03/14/19 18:00 03/15/19 01:42 Chloride IV 100 mls/hr Q8H [facility] Administration Protocol Lamivudine 300 mg 03/09/19 15:00 03/14/19 09:35 Epivir PO 300 mg DAILY [facility] Administration Ondansetron HCl 4 mg 03/09/19 04:38 03/13/19 10:08 Zofran IV 4 mg Q8H PRN Administration Nausea And Vomiting Pantoprazole Sodium 40 mg 03/13/19 22:00 03/14/19 22:35 Protonix PO 40 mg BID [facility] Administration Sodium Chloride 10 ml 03/09/19 10:00 03/15/19 01:44 Sodium Chloride Flush Syringe 10 Ml IV 10 ml BID [facility] Administration Sodium Chloride 10 ml 03/09/19 04:38 03/14/19 20:26 Sodium Chloride Flush Syringe 10 Ml IV 10 ml PRN PRN Administration LINE FLUSH
[2019-03-15] MEDS: ZIAGEN PO SCH (09:26)
[2019-03-15] MEDS: PROTONIX PO SCH ×2 (09:27→21:11)
[2019-03-15] MEDS: MYCAMINE 100 MG in NACL 0.9% 100 ML IV SCH (09:31)
[2019-03-15] MEDS: TIVICAY PO SCH (09:43)
--- NOTE | 2019-03-15 10:56 | Progress Note ---
Assessment and Plan Cultures: Cryptococcal Antigen: negative MRSA PCR: negative A/P: [id number]-male with a past medical history of PCP pneumonia 2010, gastric ulcers, pneumothroax Gr II internal hemorrhoids and HIV. Review of medical records at [facility] reveals CD4 count 32 and VL >350,000 in 2014.. He states that his last CD4 count was in the low 30's 2 months ago.The patient is noncompliant on HIV therapy with refractory malorie infection requiring micafungin during past admissions. Now admitted with: 1. Community Acquired Pneumonia vs PCP: productive cough for the past 3 days with yellow sputum, yesterday began coughing up blood. Chest xray shows extensive bilateral airspace disease. Pleural fluid is not seen. Chest CT shows very subtle ground glass, ?mild PCP pneumonia. Repeat chest xray shows patchy bilateral airspace disease mentioned on previous xray has resolved. Sputum collected too low a quantity to be able to run PJP DFA 2. HIV: Currently taking Triumeg, for 2 months, previously non-compliant with medication regimen. Now with Dr. Bar, [facility]. Review of medic al records at [facility] reveals CD4 count 32 and VL >350,000 in 2014. CD4 count 60's and VL > 1 million 2 months ago. Current CD4 count 16, VL 37,000. Triumeg non- formulary, continue Epzicom and Tivicay. TTE is normal. Serum 1, 3, Beta d glucan- negative 3. Rectal Bleeding: due to internal hemorrhoids: GI following 4. Oropharyngeal candidiasis: with concern for possible esophagitis. Malorie infection seen on exam on the back of the oropharynx, history of severe malorie infection that does not respond to Fluconazole. Continue Micafungin 5. Hemoptysis vs Hematemesis: Worsening ?related to esophagitis. Possibility of HSV or CMV esophagitis does exist. Consider Bronch and Bal. Pulmonary following. Plan: -f/u Streptoccocus Pneumoniae urinary antigen,Legionella Antigen, EIA, Serum -Continue Ceftriaxone and Bactrim, D6 -continue Micafungin 100mg IV every 24 hours, D6 -continue Epzicom and Tivicay -continue IV acyclovir as empiric therapy to cover for HSV esophagitis empirically. [facility] M: [phone] O:[phone] Subjective Date of service: 03/15/19 Principal diagnosis: GI bleed Interval history: Patient seen and examined. SOB on exertion and pleuritic chest pain improved. No fevers. Worsening Hemoptysis Objective - Exam Narrative Exam: Constitutional: Alert, cooperative. mild distress . Head, Ears, Nose: Normocephalic, atraumatic. External ears, nose normal Eyes: Conjunctivae/corneas clear. No icterus. No ptosis. Neck: Supple, no meningeal signs Oral: dentition good, no thrush. Cardiovascular: S1, S2 normal. Respiratory: Good air entry, clear to auscultation bilaterally, + SOB on exertion , + pleuritic chest pain improved, worsening hemoptysis. GI: Soft, non-tender; bowel sounds normal., Rectal bleeding resolved. Musculoskeletal: No pedal edema, no cyanosis. Skin: No rash or abscess. + tattoos Hem/Lymphatic: No palpable cervical or supraclavicular nodes. No lymphangitis Psych: Mood ok. Affect normal Neurological: Awake, alert, oriented. G - Constitutional Vitals: Vital Signs Temp Pulse Resp BP Pulse Ox 97.5 F L 102 H 18 123/64 98 03/15/19 05:30 03/15/19 05:30 03/15/19 06:05 03/15/19 05:30 03/15/19 05:30 Temperature -Last 24 Hours Temperature 97.5 F Temperature 97.4 F Temperature 97.7 F Temperature 98.2 F - Labs CBC & Chem 7: 03/14/19 09:30 03/14/19 09:30 Labs: Abnormal lab results 03/10/19 Range/Units 14:32 Lymph Enumerat CD4/CD8 0.02 L (0.86-5.00) Absolute CD3 Count 699 L (840-3060) cells/uL % CD4 Cells 1 L (30-61) % Absolute CD4 Count 16 L (490-1740) cells/uL % CD8 Cells 60 H (12-42) % Absolute CD19 Count 95 L (110-660) cells/uL
[2019-03-15] MEDS: EPIVIR PO SCH (13:14)
[2019-03-15 15:15] LABS: BUN/Creatinine Ratio 8; Blood Urea Nitrogen 9 mg/dL (9-20); Calcium 8.6 mg/dL (8.4-10.2); Hemolysis Index 28
--- NOTE | 2019-03-15 17:34 | Progress Note ---
Assessment and Plan Imp: 1. Reported hemoptysis 2. Pneumonia 3. HIV/AIDS 4. Oropharyngeal candidiasis 5. Chronic nicotine dependence, cigarettes Rec: 1. Will proceed with bronchoscopy with airway inspection & BAL to f/u KS & r/o PJP, etc., as per ID request; I did review his [place] chart, however, and he has had 5+ bronchoscopies dating back to 2011 for hemoptysis, all negative for airway bleeding w/ negative cytology/cultures/biopsies; malingering should be considered if bronch is negative 2. ABX per ID 3. Stop smoking Plan of care reviewed with patient, he understands/agrees; risks, benefits, alternatives discussed and patient agrees to proceed with bronchoscopy; complex decision-making Subjective Date of service: 03/15/19 Principal diagnosis: GI bleed Interval history: No events. Coughing up dark blood per cup at bedside. Having chest pain on R at site of prior PTX/chest tube. Active Medications Abacavir Sulfate (Ziagen) 600 mg PO DAILY [facility] Last Admin: 03/15/19 09:26 Dose: 600 mg Documented by: Acetaminophen (Tylenol) 650 mg PO Q4H PRN PRN Reason: Pain MILD(1-3)/Fever >100.5/BENNETT Hydrocortisone Acetate (Proctosol-Hc) 1 applic OK Q8H PRN PRN Reason: Hemorrhoids Last Admin: 03/14/19 09:36 Dose: 1 applic Documented by: Hydromorphone HCl (Dilaudid) 0.5 mg IV Q4H PRN PRN Reason: Pain , Severe (7-10) Last Admin: 03/15/19 16:59 Dose: 0.5 mg Documented by: Ceftriaxone Sodium (Rocephin/Ns 1 Gm/50 Ml) 1 gm in 50 mls @ 100 mls/hr IV Q24H [facility]; Protocol Last Admin: 03/15/19 05:35 Dose: 100 mls/hr Documented by: Trimethoprim/Sulfamethoxazole (475 mg/ Dextrose) 529.6875 mls @ 350 mls/hr IV Q6HR [facility]; Protocol Last Admin: 03/15/19 12:02 Dose: 350 mls/hr Documented by: Micafungin Sodium 100 mg/ (Sodium Chloride) 100 mls @ 100 mls/hr IV QDAY [facility]; Protocol Last Admin: 03/15/19 09:31 Dose: 100 mls/hr Documented by: Acyclovir 780 mg/ Sodium (Chloride) 115.6 mls @ 100 mls/hr IV Q8H [facility]; Protocol Last Admin: 03/15/19 16:59 Dose: 100 mls/hr Documented by: Lamivudine (Epivir) 300 mg PO DAILY [facility] Last Admin: 03/15/19 13:14 Dose: 300 mg Documented by: Ondansetron HCl (Zofran) 4 mg IV Q8H PRN PRN Reason: Nausea And Vomiting Last Admin: 03/13/19 10:08 Dose: 4 mg Documented by: Pantoprazole Sodium (Protonix) 40 mg PO BID [facility] Last Admin: 03/15/19 09:27 Dose: 40 mg Documented by: Sodium Chloride (Sodium Chloride Flush Syringe 10 Ml) 10 ml IV BID [facility] Last Admin: 03/15/19 09:33 Dose: 10 ml Documented by: Sodium Chloride (Sodium Chloride Flush Syringe 10 Ml) 10 ml IV PRN PRN PRN Reason: LINE FLUSH Last Admin: 03/14/19 20:26 Dose: 10 ml Documented by: Objective Vital Signs - 12hr 03/15/19 03/15/19 03/15/19 05:35 06:05 11:55 Temperature 97.8 F Pulse Rate 100 H Respiratory 18 18 16 Rate Blood Pressure 112/73 O2 Sat by Pulse 96 Oximetry Constitutional: no acute distress, alert Eyes: non-icteric ENT: oropharynx moist Neck: supple Effort: normal Ascultation: Bilateral: clear Cardiovascular: regular rate and rhythm (no mrg) Gastrointestinal: normoactive bowel sounds, soft, non-tender, non-distended Integumentary: normal Extremities: no cyanosis, no edema, pink and warm Neurologic: normal mental status, non-focal exam, pupils equal and round, CN II- XII normal Psychiatric: mood appropriate, affect normal CBC and BMP: 03/14/19 09:30 03/15/19 14:47 ABG, PT/INR, D-dimer: PT/INR, D-dimer PT 12.9 Sec. (12.2-14.9) 03/08/19 22:36 INR 0.92 (0.87-1.13) 03/08/19 22:36 Abnormal lab findings: Abnormal Labs 04/07/1903/09/19 03/09/19 22:36 00:50 04:52 WBC Hgb 10.7 L 9.0 L Hct 32.3 L 28.1 L MCV 76 L 77 L MCH 25 L 25 L RDW 22.2 H 24.5 H Lymph % (Auto) [place] % (Auto) 11.7 H [place] # 0.9 H Seg Neuts % (Manual) Monocytes % (Manual) 10.0 H Eosinophils % (Manual) 5.0 H Lymphocytes # (Manual) Sodium Chloride Carbon Dioxide Glucose Lactate Dehydrogenase 327 H Lymph Enumerat CD4/CD8 Absolute CD3 Count % CD4 Cells Absolute CD4 Count % CD8 Cells Absolute CD19 Count HIV-1 RNA PCR copies/ml HIV-1 RNA (PCR) log 03/09/19 03/09/19 03/10/19 05:47 12:36 14:32 WBC Hgb 10.7 L Hct 32.8 L MCV MCH RDW Lymph % (Auto) [place] % (Auto) [place] # Seg Neuts % (Manual) Monocytes % (Manual) Eosinophils % (Manual) Lymphocytes # (Manual) Sodium Chloride Carbon Dioxide Glucose 101 H Lactate Dehydrogenase Lymph Enumerat CD4/CD8 0.02 L Absolute CD3 Count 699 L % CD4 Cells 1 L Absolute CD4 Count 16 L % CD8 Cells 60 H Absolute CD19 Count 95 L HIV-1 RNA PCR copies/ml HIV-1 RNA (PCR) log 03/10/19 03/10/19 03/12/19 14:32 14:32 16:12 WBC 4.4 L Hgb 11.3 L 10.4 L Hct 33.9 L 32.0 L MCV 76 L 76 L MCH 25 L 25 L RDW 22.3 H 21.8 H Lymph % (Auto) 39.0 H [place] % (Auto) [place] # Seg Neuts % (Manual) 81.0 H Monocytes % (Manual) Eosinophils % (Manual) Lymphocytes # (Manual) 1.1 L Sodium Chloride Carbon Dioxide Glucose Lactate Dehydrogenase Lymph Enumerat CD4/CD8 Absolute CD3 Count % CD4 Cells Absolute CD4 Count % CD8 Cells Absolute CD19 Count HIV-1 RNA PCR copies/ml 88073 H HIV-1 RNA (PCR) log 4.57 H 03/14/19 03/14/19 03/15/19 09:30 09:30 14:47 WBC Hgb Hct MCV 75 L MCH 25 L RDW 22.0 H Lymph % (Auto) [place] % (Auto) [place] # Seg Neuts % (Manual) Monocytes % (Manual) Eosinophils % (Manual) Lymphocytes # (Manual) Sodium 129 L 133 L Chloride 97.3 L Carbon Dioxide 18 L 20 L Glucose 142 H Lactate Dehydrogenase Lymph Enumerat CD4/CD8 Absolute CD3 Count % CD4 Cells Absolute CD4 Count % CD8 Cells Absolute CD19 Count HIV-1 RNA PCR copies/ml HIV-1 RNA (PCR) log Chest x-ray: report reviewed, image reviewed CT scan - chest: report reviewed, image reviewed
[2019-03-16] MEDS: D5W IV SCH ×5 (00:03→23:59)
[2019-03-16] MEDS: BACTRIM IV SCH ×5 (00:03→23:59)
[2019-03-16] MEDS: DILAUDID IV PRN ×5 (01:19→20:54)
[2019-03-16] MEDS: ZOVIRAX IV SCH ×3 (02:06→18:21)
[2019-03-16] MEDS: NACL 0.9% IV SCH ×3 (02:06→18:21)
[2019-03-16] MEDS: ROCEPHIN/NS 1 GM/50 ML 1 GM/50 ML BAG IV SCH (06:26)
[2019-03-16 06:39] LABS: BUN/Creatinine Ratio 9; Blood Urea Nitrogen 10 mg/dL (9-20); Calcium 8.7 mg/dL (8.4-10.2); Hemolysis Index 70
--- NOTE | 2019-03-16 09:17 | Progress Note ---
Assessment and Plan Cultures: Cryptococcal Antigen: negative MRSA PCR: negative A/P: 65-cilh-akq-male with a past medical history of PCP pneumonia 2009, gastric ulcers, pneumothroax Gr II internal hemorrhoids and HIV. Review of medical records at [facility] reveals CD4 count 32 and VL >350,000 in 2014.. He states that his last CD4 count was in the low 30's 2 months ago.The patient is noncompliant on HIV therapy with refractory malorie infection requiring micafungin during past admissions. Now admitted with: 1. Community Acquired Pneumonia vs PCP: Chest xray shows extensive bilateral airspace disease. Pleural fluid is not seen. Chest CT shows very subtle ground glass, ?mild PCP pneumonia. Repeat chest xray shows patchy bilateral airspace disease mentioned on previous xray has resolved. Sputum collected too low a quantity to be able to run PJP DFA 2. HIV: Currently taking Triumeg, for 2 months, previously non-compliant with medication regimen. Now with Dr. Bar, [facility]. Review of medical records at [facility] reveals CD4 count 32 and VL >350,000 in 2014. CD4 count 60's and VL > 1 million 2 months ago. Current CD4 count 16, VL 37,000. Triumeg non-formulary, continue Epzicom and Tivicay. TTE is normal. Serum 1, 3, Beta d glucan- negative 3. Rectal Bleeding: due to internal hemorrhoids: Improved 4. Oropharyngeal candidiasis: Improved, with concern for possible esophagitis. Malorie infection seen on exam on the back of the oropharynx, history of severe malorie infection that does not respond to Fluconazole. Continue Micafungin 5. Hemoptysis vs Hematemesis: Improved, related to esophagitis/?[place]. Pulmonary to proceed with bronchoscopy with airway inspection & BAL to f/u [place] & r/o PJP, etc., Plan: -f/u Streptoccocus Pneumoniae urinary antigen,Legionella Antigen, EIA, Serum -Continue Ceftriaxone and Bactrim, D7 -continue Micafungin 100mg IV every 24 hours, D7 -continue Epzicom and Tivicay -continue IV acyclovir, D3 -CBC ordered for tomorrow [facility] M: [id number] O:[phone] Subjective Date of service: 03/16/19 Principal diagnosis: GI bleed Interval history: Patient seen and examined. Reports generalized weakness, no pain or SOB. No fevers. Hemoptysis improved today. Objective - Exam Narrative Exam: Constitutional: Alert, cooperative. mild distress . Head, Ears, Nose: Normocephalic, atraumatic. External ears, nose normal Eyes: Conjunctivae/corneas clear. No icterus. No ptosis. Neck: Supple, no meningeal signs Oral: dentition good, no thrush. Cardiovascular: S1, S2 normal. Respiratory: Good air entry, clear to auscultation bilaterally, + SOB on exertion, Hemoptysis improved. GI: Soft, non-tender; bowel sounds normal., Musculoskeletal: No pedal edema, no cyanosis. Skin: No rash or abscess. + tattoos Hem/Lymphatic: No palpable cervical or supraclavicular nodes. No lymphangitis Psych: Mood ok. Affect normal Neurological: Awake, alert, oriented. G - Constitutional Vitals: Vital Signs Temp Pulse Resp BP Pulse Ox 98.4 F 80 18 120/81 99 03/16/19 06:14 03/16/19 06:14 03/16/19 06:14 03/16/19 06:14 03/16/19 06:14 Temperature -Last 24 Hours Temperature 98.4 F Temperature 98.1 F Temperature 97.7 F Temperature 97.8 F - Labs CBC & Chem 7: 03/14/19 09:30 03/16/19 04:47 Labs: Abnormal lab results 03/15/19 03/16/19 Range/Units 14:47 04:47 Sodium 133 L 134 L (137-145) mmol/L Carbon Dioxide 20 L 21 L (22-30) mmol/L
[2019-03-16] MEDS: PROTONIX PO SCH ×2 (09:33→21:02)
[2019-03-16] MEDS: EPIVIR PO SCH (09:34)
[2019-03-16] MEDS: ZIAGEN PO SCH (09:34)
[2019-03-16] MEDS: TIVICAY PO SCH (09:35)
[2019-03-16] MEDS: ZOFRAN IV PRN ×2 (09:35→20:54)
[2019-03-16] MEDS: SODIUM CHLORIDE FLUSH SYRINGE 10 ML IV SCH ×2 (09:35→21:01)
[2019-03-16] MEDS: MYCAMINE 100 MG in NACL 0.9% 100 ML IV SCH (09:42)
--- NOTE | 2019-03-16 10:34 | Progress Note ---
Assessment and Plan Assessment and plan: Bilateral pneumonia, community acquired versus PCP CT Chest unremarkable, hiatal hernia Cont Bactrim iv, Ceftriaxone CT Angio negative for PE Hemoptysis He has history of pulm embolism Discussed with Pulmonology CT Angio chest neg for Pulm embolism For bronchoscopy per pulmonary with airway inspection & BAL to f/u [place] & r/o PJP, etc., as per ID request. Pulmonary reported he has had 5+ bronchoscopies dating back to 2011 for hemoptysis, all negative for airway bleeding w/ negative cytology/cultures/biopsies; malingering should be considered if bronch is negative Rectal bleed due to internal hemorrhoids He was evaluated by GI. Conservative management Vito Esophagitis Micafungin Abdominal pain HIV/AIDS He goes to Dr. Jose Alejandro Bar as outpatient ID Physician following Noncompliance. I discussed with him importance of compliance. History Interval history: Patient is 34 yo with HIV/AIDS, history of coronary embolism status post IVC filter, refractory vito esophagitis, multiple EGD and colonoscopies. She had presented with hematemesis, hemoptysis and blood in stool. He was evaluated in ED. Chest X ray suggested bilat pneumonia. He was started on iv Abx admitted. GI, Pulm and ID consulted. GI recommend conservative management since H/H stable. ID initiated Ceftriaxone , Bactrim iv for possible PCP pneumonia, Micafungin for esophagitis. CT angio was negative for PE. Patient continued to have hematemesis. 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 For bronchoscopy within next few days. No new issues overnight Hospitalist Physical - Constitutional Vitals: Temp Pulse Resp BP Pulse Ox 98.4 F 80 18 120/81 99 03/16/19 06:14 03/16/19 06:14 03/16/19 06:14 03/16/19 06:14 03/16/19 06:14 General appearance: Present: no acute distress, well-nourished - EENT Eyes: Present: PERRL, EOM intact ENT: hearing intact, clear oral mucosa, dentition normal - Neck Neck: Present: supple, normal ROM - Respiratory Respiratory effort: normal Respiratory: bilateral: CTA - Cardiovascular Rhythm: regular Heart Sounds: Present: S1 & S2. Absent: gallop, rub - Extremities Extremities: no ischemia, No edema, Full ROM - Abdominal General gastrointestinal: soft, non-tender, non-distended, normal bowel sounds - Integumentary Integumentary: Present: clear, warm, dry - Neurologic Neurologic: CNII-XII intact, moves all extremities Results - Labs CBC & Chem 7: 03/14/19 09:30 03/16/19 04:47 Labs: Laboratory Last Values WBC 6.7 K/mm3 (4.5-11.0) 03/14/19 09:30 RBC 4.79 M/mm3 (3.65-5.03) 03/14/19 09:30 Hgb 11.8 gm/dl (11.8-15.2) 03/14/19 09:30 Hct 36.0 % (35.5-45.6) 03/14/19 09:30 MCV 75 fl (84-94) L 03/14/19 09:30 MCH 25 pg (28-32) L 03/14/19 09:30 MCHC 33 % (32-34) 03/14/19 09:30 RDW 22.0 % (13.2-15.2) H 03/14/19 09:30 Plt Count 276 K/mm3 (140-440) 03/14/19 09:30 Lymph % (Auto) 39.0 % (13.4-35.0) H 03/12/19 16:12 [place] % (Auto) 4.7 % (0.0-7.3) 03/12/19 16:12 Eos % (Auto) 1.0 % (0.0-4.3) 03/12/19 16:12 Baso % (Auto) 1.3 % (0.0-1.8) 03/12/19 16:12 Lymph # 1.7 K/mm3 (1.2-5.4) 03/12/19 16:12 [place] # 0.2 K/mm3 (0.0-0.8) 03/12/19 16:12 Eos # 0.0 K/mm3 (0.0-0.4) 03/12/19 16:12 Baso # 0.1 K/mm3 (0.0-0.1) 03/12/19 16:12 Add Manual Diff Complete 03/10/19 14:32 Total Counted 100 03/10/19 14:32 Seg Neutrophils % 54.0 % (40.0-70.0) 03/12/19 16:12 Seg Neuts % (Manual) 81.0 % (40.0-70.0) H 03/10/19 14:32 Band Neutrophils % 0 % 03/10/19 14:32 Lymphocytes % (Manual) 15.0 % (13.4-35.0) 03/10/19 14:32 Reactive Lymphs % (Man) 0 % 03/10/19 14:32 Monocytes % (Manual) 3.0 % (0.0-7.3) 03/10/19 14:32 Eosinophils % (Manual) 1.0 % (0.0-4.3) 03/10/19 14:32 Basophils % (Manual) 0 % (0.0-1.8) 03/10/19 14:32 Metamyelocytes % 0 % 03/10/19 14:32 Myelocytes % 0 % 03/10/19 14:32 Promyelocytes % 0 % 03/10/19 14:32 Blast Cells % 0 % 03/10/19 14:32 Nucleated RBC % Not Reportable 03/10/19 14:32 Seg Neutrophils # 2.4 K/mm3 (1.8-7.7) 03/12/19 16:12 Seg Neutrophils # Man 5.9 K/mm3 (1.8-7.7) 03/10/19 14:32 Band Neutrophils # 0.0 K/mm3 03/10/19 14:32 Abs Lymphs (Manual) 1090 cells/uL (850-3900) 03/10/19 14:32 Lymphocytes # (Manual) 1.1 K/mm3 (1.2-5.4) L 03/10/19 14:32 Abs React Lymphs (Man) 0.0 K/mm3 03/10/19 14:32 Monocytes # (Manual) 0.2 K/mm3 (0.0-0.8) 03/10/19 14:32 Eosinophils # (Manual) 0.1 K/mm3 (0.0-0.4) 03/10/19 14:32 Basophils # (Manual) 0.0 K/mm3 (0.0-0.1) 03/10/19 14:32 Metamyelocytes # 0.0 K/mm3 03/10/19 14:32 Myelocytes # 0.0 K/mm3 03/10/19 14:32 Promyelocytes # 0.0 K/mm3 03/10/19 14:32 Blast Cells # 0.0 K/mm3 03/10/19 14:32 WBC Morphology Not Reportable 03/10/19 14:32 Hypersegmented Neuts Not Reportable 03/10/19 14:32 Hyposegmented Neuts Not Reportable 03/10/19 14:32 Hypogranular Neuts Not Reportable 03/10/19 14:32 Smudge Cells Not Reportable 03/10/19 14:32 Toxic Granulation Not Reportable 03/10/19 14:32 Toxic Vacuolation Not Reportable 03/10/19 14:32 Dohle Bodies Not Reportable 03/10/19 14:32 Pelger-Huet Anomaly Not Reportable 03/10/19 14:32 Marco A Rods Not Reportable 03/10/19 14:32 Platelet Estimate Not Reportable 03/10/19 14:32 Clumped Platelets Not Reportable 03/10/19 14:32 Plt Clumps, EDTA Not Reportable 03/10/19 14:32 Large Platelets Not Reportable 03/10/19 14:32 Giant Platelets Not Reportable 03/10/19 14:32 Platelet Satelliting Not Reportable 03/10/19 14:32 Plt Morphology Comment Not Reportable 03/10/19 14:32 RBC Morphology Normal 03/10/19 14:32 Dimorphic RBCs Not Reportable 03/10/19 14:32 Polychromasia Not Reportable 03/10/19 14:32 Hypochromasia Not Reportable 03/10/19 14:32 Poikilocytosis Not Reportable 03/10/19 14:32 Anisocytosis Not Reportable 03/10/19 14:32 Microcytosis Not Reportable 03/10/19 14:32 Macrocytosis Not Reportable 03/10/19 14:32 Spherocytes Not Reportable 03/10/19 14:32 Pappenheimer Bodies Not Reportable 03/10/19 14:32 Sickle Cells Not Reportable 03/10/19 14:32 Target Cells Not Reportable 03/10/19 14:32 Tear Drop Cells Not Reportable 03/10/19 14:32 Ovalocytes Not Reportable 03/10/19 14:32 Helmet Cells Not Reportable 03/10/19 14:32 [place] Bodies Not Reportable 03/10/19 14:32 [place] Rings Not Reportable 03/10/19 14:32 [place] Cells Not Reportable 03/10/19 14:32 Bite Cells Not Reportable 03/10/19 14:32 Crenated Cell Not Reportable 03/10/19 14:32 Elliptocytes Not Reportable 03/10/19 14:32 Acanthocytes (Spur) Not Reportable 03/10/19 14:32 Rouleaux Not Reportable 03/10/19 14:32 Hemoglobin C Crystals Not Reportable 03/10/19 14:32 Schistocytes Not Reportable 03/10/19 14:32 Malaria parasites Not Reportable 03/10/19 14:32 Sander Bodies Not Reportable 03/10/19 14:32 Hem Pathologist Commnt No 03/10/19 14:32 PT 12.9 Sec. (12.2-14.9) 03/08/19 22:36 INR 0.92 (0.87-1.13) 03/08/19 22:36 APTT 25.9 Sec. (24.2-36.6) 03/08/19 22:36 Sodium 134 mmol/L (137-145) L 03/16/19 04:47 Potassium 4.6 mmol/L (3.6-5.0) 03/16/19 04:47 Chloride 98.7 mmol/L (98-107) 03/16/19 04:47 Carbon Dioxide 21 mmol/L (22-30) L 03/16/19 04:47 Anion Gap 19 mmol/L 03/16/19 04:47 BUN 10 mg/dL (9-20) 03/16/19 04:47 Creatinine 1.1 mg/dL (0.8-1.5) 03/16/19 04:47 Estimated GFR > 60 ml/min 03/16/19 04:47 BUN/Creatinine Ratio 9 % 03/16/19 04:47 Glucose 81 mg/dL (75-100) 03/16/19 04:47 Calcium 8.7 mg/dL (8.4-10.2) 03/16/19 04:47 Total Bilirubin < 0.20 mg/dL (0.1-1.2) 03/08/19 22:36 AST 21 units/L (5-40) 03/08/19 22:36 ALT 20 units/L (7-56) 03/08/19 22:36 Alkaline Phosphatase 88 units/L (35-129) 03/08/19 22:36 Lactate Dehydrogenase 327 units/L (91-180) H 03/08/19 22:36 Total Protein 8.2 g/dL (6.3-8.2) 03/08/19 22:36 Albumin 4.0 g/dL (3.9-5) 03/08/19 22:36 Albumin/Globulin Ratio 1.0 % 03/08/19 22:36 Urine Color Yellow (Yellow) 03/09/19 10:00 Urine Turbidity Clear (Clear) 03/09/19 10:00 Urine pH 7.0 (5.0-7.0) 03/09/19 10:00 Ur Specific [place] 1.027 (1.003-1.030) 03/09/19 10:00 Urine Protein <15 mg/dl mg/dL (Negative) 03/09/19 10:00 Urine Glucose (UA) Neg mg/dL (Negative) 03/09/19 10:00 Urine Ketones Neg mg/dL (Negative) 03/09/19 10:00 Urine Blood Neg (Negative) 03/09/19 10:00 Urine Nitrite Neg (Negative) 03/09/19 10:00 Urine Bilirubin Neg (Negative) 03/09/19 10:00 Urine Urobilinogen < 2.0 mg/dL (<2.0) 03/09/19 10:00 Ur Leukocyte Esterase Neg (Negative) 03/09/19 10:00 Urine WBC (Auto) 1.0 /HPF (0.0-6.0) 03/09/19 10:00 Urine RBC (Auto) 1.0 /HPF (0.0-6.0) 03/09/19 10:00 Urine Mucus Few /HPF 03/09/19 10:00 Lymph Enumerat CD4/CD8 0.02 (0.86-5.00) L 03/10/19 14:32 % CD3 Cells 64 % (57-85) 03/10/19 14:32 Absolute CD3 Count 699 cells/uL (840-3060) L 03/10/19 14:32 % CD4 Cells 1 % (30-61) L 03/10/19 14:32 Absolute CD4 Count 16 cells/uL (490-1740) L 03/10/19 14:32 % CD8 Cells 60 % (12-42) H 03/10/19 14:32 Absolute CD8 Count 656 cells/uL (180-1170) 03/10/19 14:32 % CD19 Cells 9 % (6-29) 03/10/19 14:32 Absolute CD19 Count 95 cells/uL (110-660) L 03/10/19 14:32 HIV-1 RNA PCR copies/ml 49829 Copies/mL H 03/10/19 14:32 HIV-1 RNA (PCR) log 4.57 Log cps/mL H 03/10/19 14:32 Miscellaneous Test Flexitest 1 03/10/19 14:32 Active Medications - Current Medications Current Medications: Generic Name Dose Route Start Last Admin Trade Name Freq PRN Reason Stop Dose Admin Abacavir Sulfate 600 mg 03/09/19 15:00 03/16/19 09:34 Ziagen PO 600 mg DAILY TALITA Administration Acetaminophen 650 mg 03/09/19 04:38 Tylenol PO Q4H PRN Pain MILD(1-3)/Fever >100.5/BENNETT Hydrocortisone Acetate 1 applic 03/09/19 14:14 03/14/19 09:36 Proctosol-Hc MI 1 applic Q8H PRN Administration Hemorrhoids Hydromorphone HCl 0.5 mg 03/09/19 16:45 03/16/19 09:35 Dilaudid IV 0.5 mg Q4H PRN Administration Pain , Severe (7-10) Ceftriaxone Sodium 1 gm in 50 mls @ 100 mls/hr 03/09/19 06:00 03/16/19 06:26 Rocephin/Ns 1 Gm/50 Ml IV 100 mls/hr Q24H TALITA Administration Protocol Trimethoprim/Sulfamethoxazole 529.6875 mls @ 350 mls/hr 03/09/19 16:00 03/16/19 05:49 475 mg/ Dextrose IV 350 mls/hr Q6HR TALITA Administration Protocol Micafungin Sodium 100 mg/ 100 mls @ 100 mls/hr 03/10/19 16:00 03/16/19 09:42 Sodium Chloride IV 100 mls/hr QDAY TALITA Administration Protocol Acyclovir 780 mg/ Sodium 115.6 mls @ 100 mls/hr 03/14/19 18:00 03/16/19 09:42 Chloride IV 100 mls/hr Q8H TALITA Administration Protocol Lamivudine 300 mg 03/09/19 15:00 03/16/19 09:34 Epivir PO 300 mg DAILY TALITA Administration Ondansetron HCl 4 mg 03/09/19 04:38 03/16/19 09:35 Zofran IV 4 mg Q8H PRN Administration Nausea And Vomiting Pantoprazole Sodium 40 mg 03/13/19 22:00 03/16/19 09:33 Protonix PO 40 mg BID TALITA Administration Sodium Chloride 10 ml 03/09/19 10:00 03/16/19 09:35 Sodium Chloride Flush Syringe 10 Ml IV 10 ml BID TALITA Administration Sodium Chloride 10 ml 03/09/19 04:38 03/14/19 20:26 Sodium Chloride Flush Syringe 10 Ml IV 10 ml PRN PRN Administration LINE FLUSH Nutrition/Malnutrition Assess - Dietary Evaluation Nutrition/Malnutrition Findings: Nutrition Notes Start: 03/16/19 09:56 Freq: Status: Active Protocol: Document 03/16/19 09:56 CP (Rec: 03/16/19 10:11 CP [id number]) Co-Sign 03/16/19 09:56 LP Nutrition Notes Need for Assessment generated from: LOS Initial or Follow up Assessment Other Pertinent Diagnosis Bilateral pneumonia, HIV/AIDS, nicotine dependence, oropharyngeal candidias Labs/Tests Na 134 Pertinent Medications Reviewed Height 6 ft Weight 93.5 kg Usual Body Weight 95 kg [place] Body Weight (kg) 80.90 BMI 27.9 Intake Prior to Admission Poor Weight Status Overweight Subjective/Other Information RD screen for LOS. Pt reports decreased weight to admission and low appetite (only consuming 50% of meals). Pt does not know how much his weight decreased and reports having nausea. Pt has lactose intolerance and discussed getting ensure clear once diet is resumed. Percent of energy/protein needs met: 0%/0$ Burn Absent Trauma Absent #1 Nutrition Diagnosis Inadequate oral intake Etiology Oropharyngeal candidiasis As Evidenced by Signs and Symptoms NPO after midnight status Is patient on ventilator? No Is Patient Ambulatory and/or Out of Bed Yes REE-(Real-St. Jeor-ambulatory/OOB) [ 1104.400 [id number]] Calculation Used for Recommendations Real-St Jeor Additional Notes Pro: (0.8-1g/kg) 75-96g/day Fluid: 1mL/kcal Nutrition Intervention Change Diet Order: Advance per MD request Add Supplement/Snack (indicate name/kcal Ensure Clear Apple TID /protein ) Provides kCal: 720 Provides Protein (gm) 24 Barriers to Learning Reading skills Goal #1 PO/ONS intake to meet at least 80% of energy and protein needs once diet is advanced Anticipated Discharge Needs: Unable to determine at this time Follow-Up By: 03/18/19 Additional Comments F/U: PO/ONS intakes
--- NOTE | 2019-03-16 12:57 | Progress Note ---
Assessment and Plan Imp: 1. Reported hemoptysis 2. Pneumonia 3. HIV/AIDS 4. Oropharyngeal candidiasis 5. Chronic nicotine dependence, cigarettes Rec: 1. Will proceed with bronchoscopy with airway inspection & BAL to f/u KS & r/o PJP, etc., as per ID request; I did review his [place] chart, however, and he has had 5+ bronchoscopies dating back to 2011 for hemoptysis, all negative for airway bleeding w/ negative cytology/cultures/biopsies; malingering should be considered if bronch is negative 2. ABX per ID 3. Stop smoking 4. If bronch negative for bleeding he could go home pulmonary-[place] on ABX if recommended by ID Plan of care reviewed with patient, he understands/agrees; risks, benefits, alternatives discussed and patient agrees to proceed with bronchoscopy Subjective Date of service: 03/16/19 Principal diagnosis: GI bleed Interval history: No events. Coughing up dark blood per cup at bedside. Having chest pain on R at site of prior PTX/chest tube. Active Medications Abacavir Sulfate (Ziagen) 600 mg PO DAILY TALITA Last Admin: 03/16/19 09:34 Dose: 600 mg Documented by: Acetaminophen (Tylenol) 650 mg PO Q4H PRN PRN Reason: Pain MILD(1-3)/Fever >100.5/BENNETT Hydrocortisone Acetate (Proctosol-Hc) 1 applic OR Q8H PRN PRN Reason: Hemorrhoids Last Admin: 03/14/19 09:36 Dose: 1 applic Documented by: Hydromorphone HCl (Dilaudid) 0.5 mg IV Q4H PRN PRN Reason: Pain , Severe (7-10) Last Admin: 03/16/19 09:35 Dose: 0.5 mg Documented by: Ceftriaxone Sodium (Rocephin/Ns 1 Gm/50 Ml) 1 gm in 50 mls @ 100 mls/hr IV Q24H TALITA; Protocol Last Admin: 03/16/19 06:26 Dose: 100 mls/hr Documented by: Trimethoprim/Sulfamethoxazole (475 mg/ Dextrose) 529.6875 mls @ 350 mls/hr IV Q6HR TALITA; Protocol Last Admin: 03/16/19 05:49 Dose: 350 mls/hr Documented by: Micafungin Sodium 100 mg/ (Sodium Chloride) 100 mls @ 100 mls/hr IV QDAY [facility]; Protocol Last Admin: 03/16/19 09:42 Dose: 100 mls/hr Documented by: Acyclovir 780 mg/ Sodium (Chloride) 115.6 mls @ 100 mls/hr IV Q8H [facility]; Protocol Last Admin: 03/16/19 09:42 Dose: 100 mls/hr Documented by: Lamivudine (Epivir) 300 mg PO DAILY [facility] Last Admin: 03/16/19 09:34 Dose: 300 mg Documented by: Ondansetron HCl (Zofran) 4 mg IV Q8H PRN PRN Reason: Nausea And Vomiting Last Admin: 03/16/19 09:35 Dose: 4 mg Documented by: Pantoprazole Sodium (Protonix) 40 mg PO BID [facility] Last Admin: 03/16/19 09:33 Dose: 40 mg Documented by: Sodium Chloride (Sodium Chloride Flush Syringe 10 Ml) 10 ml IV BID [facility] Last Admin: 03/16/19 09:35 Dose: 10 ml Documented by: Sodium Chloride (Sodium Chloride Flush Syringe 10 Ml) 10 ml IV PRN PRN PRN Reason: LINE FLUSH Last Admin: 03/14/19 20:26 Dose: 10 ml Documented by: Objective Vital Signs - 12hr 03/16/19 03/16/19 03/16/19 01:19 05:10 06:14 Temperature 98.4 F Pulse Rate 80 Respiratory 20 20 18 Rate Blood Pressure 120/81 O2 Sat by Pulse 99 Oximetry 03/16/19 12:28 Temperature 97.8 F Pulse Rate 78 Respiratory 20 Rate Blood Pressure 112/65 O2 Sat by Pulse 96 Oximetry Constitutional: no acute distress, alert Eyes: non-icteric ENT: oropharynx moist Neck: supple Effort: normal Ascultation: Bilateral: clear Cardiovascular: regular rate and rhythm (no mrg) Gastrointestinal: normoactive bowel sounds, soft, non-tender, non-distended Integumentary: normal Extremities: no cyanosis, no edema, pink and warm Neurologic: normal mental status, non-focal exam, pupils equal and round, CN II- XII normal Psychiatric: mood appropriate, affect normal CBC and BMP: 03/14/19 09:30 03/16/19 04:47 ABG, PT/INR, D-dimer: PT/INR, D-dimer PT 12.9 Sec. (12.2-14.9) 03/08/19 22:36 INR 0.92 (0.87-1.13) 03/08/19 22:36 Abnormal lab findings: Abnormal Labs 03/08/19 03/09/19 03/09/19 22:36 00:50 04:52 WBC Hgb 10.7 L 9.0 L Hct 32.3 L 28.1 L MCV 76 L 77 L MCH 25 L 25 L RDW 22.2 H 24.5 H Lymph % (Auto) [place] % (Auto) 11.7 H Rush # 0.9 H Seg Neuts % (Manual) Monocytes % (Manual) 10.0 H Eosinophils % (Manual) 5.0 H Lymphocytes # (Manual) Sodium Chloride Carbon Dioxide Glucose Lactate Dehydrogenase 327 H Lymph Enumerat CD4/CD8 Absolute CD3 Count % CD4 Cells Absolute CD4 Count % CD8 Cells Absolute CD19 Count HIV-1 RNA PCR copies/ml HIV-1 RNA (PCR) log 03/09/19 03/09/19 03/10/19 05:47 12:36 14:32 WBC Hgb 10.7 L Hct 32.8 L MCV MCH RDW Lymph % (Auto) [place] % (Auto) [place] # Seg Neuts % (Manual) Monocytes % (Manual) Eosinophils % (Manual) Lymphocytes # (Manual) Sodium Chloride Carbon Dioxide Glucose 101 H Lactate Dehydrogenase Lymph Enumerat CD4/CD8 0.02 L Absolute CD3 Count 699 L % CD4 Cells 1 L Absolute CD4 Count 16 L % CD8 Cells 60 H Absolute CD19 Count 95 L HIV-1 RNA PCR copies/ml HIV-1 RNA (PCR) log 03/10/19 03/10/19 03/12/19 14:32 14:32 16:12 WBC 4.4 L Hgb 11.3 L 10.4 L Hct 33.9 L 32.0 L MCV 76 L 76 L MCH 25 L 25 L RDW 22.3 H 21.8 H Lymph % (Auto) 39.0 H [place] % (Auto) [place] # Seg Neuts % (Manual) 81.0 H Monocytes % (Manual) Eosinophils % (Manual) Lymphocytes # (Manual) 1.1 L Sodium Chloride Carbon Dioxide Glucose Lactate Dehydrogenase Lymph Enumerat CD4/CD8 Absolute CD3 Count % CD4 Cells Absolute CD4 Count % CD8 Cells Absolute CD19 Count HIV-1 RNA PCR copies/ml 67138 H HIV-1 RNA (PCR) log 4.57 H 03/14/19 03/14/19 03/15/19 09:30 09:30 14:47 WBC Hgb Hct MCV 75 L MCH 25 L RDW 22.0 H Lymph % (Auto) [place] % (Auto) [place] # Seg Neuts % (Manual) Monocytes % (Manual) Eosinophils % (Manual) Lymphocytes # (Manual) Sodium 129 L 133 L Chloride 97.3 L Carbon Dioxide 18 L 20 L Glucose 142 H Lactate Dehydrogenase Lymph Enumerat CD4/CD8 Absolute CD3 Count % CD4 Cells Absolute CD4 Count % CD8 Cells Absolute CD19 Count HIV-1 RNA PCR copies/ml HIV-1 RNA (PCR) log 03/16/19 04:47 WBC Hgb Hct MCV MCH RDW Lymph % (Auto) [place] % (Auto) [place] # Seg Neuts % (Manual) Monocytes % (Manual) Eosinophils % (Manual) Lymphocytes # (Manual) Sodium 134 L Chloride Carbon Dioxide 21 L Glucose Lactate Dehydrogenase Lymph Enumerat CD4/CD8 Absolute CD3 Count % CD4 Cells Absolute CD4 Count % CD8 Cells Absolute CD19 Count HIV-1 RNA PCR copies/ml HIV-1 RNA (PCR) log Chest x-ray: report reviewed, image reviewed CT scan - chest: report reviewed, image reviewed
[2019-03-16] MEDS ORDERED: NACL 0.9% 1000 ML 1,000 ML IV SCH (14:00)
[2019-03-16] MEDS ORDERED: DILAUDID ONE (14:07)
[2019-03-16] MEDS ORDERED: DIPRIVAN 10 MG/ML IV ONE (14:07)
[2019-03-16] MEDS ORDERED: VERSED ONE (14:07)
[2019-03-16] MEDS ORDERED: XYLOCAINE 2% INFILTRATI ONE (14:08)
[2019-03-16] MEDS ORDERED: SUBLIMAZE ONE (14:10)
[2019-03-16] MEDS ORDERED: NACL 0.9% 1000 ML 2,000 ML ONE (14:12)
[2019-03-16] MEDS ORDERED: XYLOCAINE 1% 20 mL ONE (14:13)
[2019-03-16] MEDS ORDERED: LIDOCAINE VISCOUS 2% ONE (14:13)
[2019-03-16] MEDS ORDERED: HURRICAINE ONE 20% TOPICAL SPRAY MM ×2 (14:13→14:31)
[2019-03-16] MEDS ORDERED: ADRENALINE P/F ONE (14:18)
[2019-03-16] MEDS ORDERED: LIDOCAINE VISCOUS 2% PO ONE ×3 (14:21→14:24)
[2019-03-16] MEDS ORDERED: XYLOCAINE 1% 20 mL INFILTRATI ONE ×4 (14:37→14:40)
--- NOTE | 2019-03-16 14:46 | Post Operative Note ---
Date of procedure: 03/16/19 Pre-op diagnosis: Hemoptysis Post-op diagnosis: same Findings: Vocal cords, oropharynx, epiglottis, trachea, all airways are normal. No bleeding or endobronchial lesions. Procedure: Bronch with BAL Anesthesia: MAC Surgeon: JESSENIA DOBBS Estimated blood loss: none Pathology: list (BAL RML to micro and cytology) Specimen disposition: to lab Condition: stable Disposition: floor
--- NOTE | 2019-03-16 14:54 | Anesthesia Day of Surgery ---
Anesthesia Day of Surgery - Day of Surgery Patient Examined: Yes Patient H&P Reviewed: Yes Patient is NPO: Yes Beta Blockers: No Cardiac Clearance: No Pulmonary Clearance: No
--- NOTE | 2019-03-16 14:55 | Anesthesia Consultation ---
Anesthesia Consult and Med Hx Date of service: 03/16/19 - Airway Anesthetic Teeth Evaluation: Good ROM Head & Neck: Adequate Mental/Hyoid Distance: Adequate Mallampati Class: Class III Intubation Access Assessment: Good - Pulmonary Exam CTA: Yes - Cardiac Exam Cardiac Exam: No Murmur - Pre-Operative Health Status ASA Pre-Surgery Classification: ASA3 Proposed Anesthetic Plan: MAC - Pulmonary Hx Smoking: Yes Hx Asthma: No COPD: No Hx Pneumonia: Yes Hx Sleep Apnea: No - Cardiovascular System Hx Coronary Artery Disease: No Hx Angina: No Hx Pacemaker: No Hx Internal Defibrillator: No - Central Nervous System Hx Seizures: No CVA: No Hx Psychiatric Problems: No - Gastrointestinal Hx Ulcer: Yes - Endocrine Hx Renal Disease: No Hx End Stage Renal Disease: No Hx Non-Insulin Dependent Diabetes: No Hx Thyroid Disease: No - Hematic Hx Anemia: Yes (HIV/AIDS) - Other Systems Hx Alcohol Use: Yes
--- NOTE | 2019-03-16 16:01 | Operative Report ---
PROCEDURE: Bronchoscopy with BAL. INDICATION: Hemoptysis, HIV/AIDS. DESCRIPTION OF PROCEDURE: Informed consent was obtained and placed on the patient's chart. Risks, benefits, and alternatives were explained and he agreed to proceed. He underwent topical anesthesia of his nose and oropharynx with topical lidocaine. He underwent MAC, and please refer to separate report. He was supplemented with oxygen via nasal cannula. Once he was adequately sedated, the bronchoscope was passed via the right naris. Epiglottis, vocal cords and oropharynx were all normal without active bleeding. Trachea and all airways were thoroughly inspected and were completely healthy appearing and normal with no endobronchial lesions, and no evidence of current or recent bleeding. Bronchoalveolar lavage was obtained from the right middle lobe and sent to cytology and microbiology. The BAL fluid was clear. The bronchoscope was removed. The patient tolerated the procedure well with no immediate complications, and will be transferred back to his inpatient room in stable condition. ESTIMATED BLOOD LOSS: None. SPECIMENS: As described above. COMPLICATIONS: No immediate. DIET: Resume regular diet. SPECIAL INSTRUCTIONS: 1. Followup BAL, cytology and cultures. 2. I do not think the blood at the bedside is emanating from his lungs/airways, consider other alternatives. JOB# [id number] DCR/NTS
[2019-03-16 17:38] LABS: Hematocrit 34.1 % (35.5-45.6); Hemoglobin 11.1 gm/dl (11.8-15.2); Mean Corpuscular HGB Conc 32 % (32-34); Mean Corpuscular Volume 75 fl (84-94); Platelet Count 246 K/mm3 (140-440); Red Blood Count 4.53 M/mm3 (3.65-5.03)
[2019-03-16 17:39] LABS: Red Cell Distribution Width 21.7 % (13.2-15.2)
[2019-03-17] MEDS: DILAUDID IV PRN ×5 (00:41→20:32)
[2019-03-17] MEDS: NACL 0.9% IV SCH ×2 (02:33→10:58)
[2019-03-17] MEDS: ZOVIRAX IV SCH ×2 (02:33→10:58)
[2019-03-17] MEDS: ROCEPHIN/NS 1 GM/50 ML 1 GM/50 ML BAG IV SCH (06:07)
[2019-03-17] MEDS: BACTRIM IV SCH ×2 (06:57→12:24)
[2019-03-17] MEDS: D5W IV SCH ×2 (06:57→12:24)
--- NOTE | 2019-03-17 09:29 | Progress Note ---
Assessment and Plan Cultures: Cryptococcal Antigen: negative MRSA PCR: negative Bronch Lavage RML: no growth A/P: [id number] with a past medical history of PCP pneumonia 2010, gastric ulc ers, pneumothroax Gr II internal hemorrhoids and HIV. Review of medical records at [facility] reveals CD4 count 32 and VL >350,000 in 2014.. He states that his last CD4 count was in the low 30's 2 months ago.The patient is noncompliant on HIV therapy with refractory maolrie infection requiring micafungin during past admissions. Now admitted with: 1. Community Acquired Pneumonia vs PCP: Chest xray shows extensive bilateral airspace disease. Pleural fluid is not seen. Chest CT shows very subtle ground glass, ?mild PCP pneumonia. Repeat chest xray shows patchy bilateral airspace disease mentioned on previous xray has resolved. Sputum collected too low a quantity to be able to run PJP DFA 2. HIV: Currently taking Triumeg, for 2 months, previously non-compliant with medication regimen. Now with Dr. Bar, [facility]. Review of medical records at [facility] reveals CD4 count 32 and VL >350,000 in 2014. CD4 count 60's and VL > 1 million 2 months ago. Current CD4 count 16, VL 37,000. Triumeg non-formulary, continue Epzicom and Tivicay. TTE is normal. Serum 1, 3, Beta d glucan- negative 3. Rectal Bleeding: Resolved. due to internal hemorrhoids: 4. Oropharyngeal candidiasis: Improved, with concern for possible esophagitis. Malorie infection seen on exam on the back of the oropharynx, history of severe malorie infection that does not respond to Fluconazole. Continue Micafungin 5. Hemoptysis vs Hematemesis: Improved, related to esophagitis/?[place]. S/p Bronchoscopy yesterday revealed Vocal cords, oropharynx, epiglottis, trachea, all airways a normal. No bleeding or endobronchial lesions. Follow up BAL cytology. Plan: -Discontinue Ceftriaxone, Micafungin and Acyclovir -continue Epzicom and Tivicay while inpatient -f/u Streptoccocus Pneumoniae urinary antigen,Legionella Antigen, EIA, Serum -f/u BAL cytology -f/u with Dr. Bar - [facility] in 1 week -OK to discharge from ID standpoint on Bactrim 1 DS PO q 24 hours- Prescription on the chart -upon discharge restart Jorge Alberto De León NP [facility] M: [phone] O:[phone] Subjective Date of service: 03/17/19 Principal diagnosis: GI bleed Interval history: Patient seen and examined. Reports generalized weakness, no pain or SOB. No fev ers. Hemoptysis improved today. Objective - Exam Narrative Exam: Constitutional: Alert, cooperative . No acute distress Head, Ears, Nose: Normocephalic, atraumatic. External ears, nose normal Eyes: Conjunctivae/corneas clear. No icterus. No ptosis. Neck: Supple, no meningeal signs Oral: dentition good, no thrush. Cardiovascular: S1, S2 normal. Respiratory: Good air entry, clear to auscultation bilaterally, Hemoptysis improved. GI: Soft, non-tender; bowel sounds normal., Musculoskeletal: No pedal edema, no cyanosis. Skin: No rash or abscess. + tattoos Hem/Lymphatic: No palpable cervical or supraclavicular nodes. No lymphangitis Psych: Mood ok. Affect normal Neurological: Awake, alert, oriented. G - Constitutional Vitals: Vital Signs Temp Pulse Resp BP Pulse Ox 98.5 F 99 H 20 123/66 98 03/17/19 05:41 03/17/19 05:41 03/17/19 06:57 03/17/19 05:41 03/17/19 05:41 Temperature -Last 24 Hours Temperature 98.5 F Temperature 98.1 F Temperature 97.3 F Temperature 98.2 F Temperature 97.5 F Temperature 97.5 F Temperature 97.8 F - Labs CBC & Chem 7: 03/16/19 17:15 03/16/19 04:47 Labs: Abnormal lab results 03/16/19 Range/Units 17:15 Hgb 11.1 L (11.8-15.2) gm/dl Hct 34.1 L (35.5-45.6) % MCV 75 L (84-94) fl MCH 24 L (28-32) pg RDW 21.7 H (13.2-15.2) %
[2019-03-17] MEDS: ZIAGEN PO SCH (10:55)
[2019-03-17] MEDS: PROTONIX PO SCH ×2 (10:56→22:08)
[2019-03-17] MEDS: EPIVIR PO SCH (10:56)
[2019-03-17] MEDS: SODIUM CHLORIDE FLUSH SYRINGE 10 ML IV SCH ×2 (10:56→22:08)
[2019-03-17] MEDS: TIVICAY PO SCH (10:57)
[2019-03-17] MEDS: MYCAMINE 100 MG in NACL 0.9% 100 ML IV SCH (10:58)
--- NOTE | 2019-03-17 11:29 | Progress Note ---
Assessment and Plan Assessment and plan: Bilateral pneumonia, Community acquired versus PCP CT Chest unremarkable, hiatal hernia Cont Bactrim iv, Ceftriaxone CT Angio negative for PE Hemoptysis versus hematemesis He has history of pulm embolism CT Angio chest neg for Pulm embolism Bronchoscopy revealed Vocal cords, oropharynx, epiglottis, trachea, all airways a normal. No bleeding or endobronchial lesions. Follow up BAL cytology. Pulmonary reported he has had 5+ bronchoscopies dating back to 2011 for hemoptysis (with the 6th one completed here on 03/16/19), all negative for airway bleeding w/ negative cytology/cultures/biopsies; malingering should be considered Rectal bleed. Etiology secondary to to internal hemorrhoids He was evaluated by GI. Conservative management Oropharyngeal candidiasis. Probable esophagitis. Previous infection has been refractory to Diflucan. Continue Micafungin Abdominal pain HIV/AIDS He goes to Dr. Jose Alejandro Bar as outpatient ID Physician following Noncompliance. I discussed with him importance of compliance. History Interval history: Patient is 34 yo with HIV/AIDS, history of coronary embolism status post IVC filter, refractory vito esophagitis, multiple EGD and colonoscopies. She had presented with hematemesis, hemoptysis and blood in stool. He was evaluated in ED. Chest X ray suggested bilat pneumonia. He was started on iv Abx admitted. GI, Pulm and ID consulted. GI recommend conservative management since H/H stab le. ID initiated Ceftriaxone , Bactrim iv for possible PCP pneumonia, Micafungin for esophagitis. CT angio was negative for PE. Patient continued to have hematemesis. 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 For bronchoscopy on 03/16/19 that revealed Vocal cords, oropharynx, epiglottis, t rachea, all airways are normal. No bleeding or endobronchial lesions. No new issues overnight Hospitalist Physical - Constitutional Vitals: Temp Pulse Resp BP Pulse Ox 98.5 F 99 H 20 123/66 98 03/17/19 05:41 03/17/19 05:41 03/17/19 06:57 03/17/19 05:41 03/17/19 05:41 General appearance: Present: no acute distress, cachectic - EENT Eyes: Present: PERRL, EOM intact ENT: hearing intact, clear oral mucosa, dentition normal - Neck Neck: Present: supple, normal ROM - Respiratory Respiratory effort: normal Respiratory: bilateral: CTA - Cardiovascular Rhythm: regular Heart Sounds: Present: S1 & S2. Absent: gallop, rub - Extremities Extremities: no ischemia, No edema, Full ROM - Abdominal General gastrointestinal: soft, non-tender, non-distended, normal bowel sounds - Integumentary Integumentary: Present: clear, warm, dry - Neurologic Neurologic: CNII-XII intact, moves all extremities Results - Labs CBC & Chem 7: 03/16/19 17:15 03/16/19 04:47 Labs: Laboratory Last Values WBC 4.5 K/mm3 (4.5-11.0) 03/16/19 17:15 RBC 4.53 M/mm3 (3.65-5.03) 03/16/19 17:15 Hgb 11.1 gm/dl (11.8-15.2) L 03/16/19 17:15 Hct 34.1 % (35.5-45.6) L 03/16/19 17:15 MCV 75 fl (84-94) L 03/16/19 17:15 MCH 24 pg (28-32) L 03/16/19 17:15 MCHC 32 % (32-34) 03/16/19 17:15 RDW 21.7 % (13.2-15.2) H 03/16/19 17:15 Plt Count 246 K/mm3 (140-440) 03/16/19 17:15 Lymph % (Auto) 39.0 % (13.4-35.0) H 03/12/19 16:12 Cloud % (Auto) 4.7 % (0.0-7.3) 03/12/19 16:12 Eos % (Auto) 1.0 % (0.0-4.3) 03/12/19 16:12 Baso % (Auto) 1.3 % (0.0-1.8) 03/12/19 16:12 Lymph # 1.7 K/mm3 (1.2-5.4) 03/12/19 16:12 Cloud # 0.2 K/mm3 (0.0-0.8) 03/12/19 16:12 Eos # 0.0 K/mm3 (0.0-0.4) 03/12/19 16:12 Baso # 0.1 K/mm3 (0.0-0.1) 03/12/19 16:12 Add Manual Diff Complete 03/10/19 14:32 Total Counted 100 03/10/19 14:32 Seg Neutrophils % 54.0 % (40.0-70.0) 03/12/19 16:12 Seg Neuts % (Manual) 81.0 % (40.0-70.0) H 03/10/19 14:32 Band Neutrophils % 0 % 03/10/19 14:32 Lymphocytes % (Manual) 15.0 % (13.4-35.0) 03/10/19 14:32 Reactive Lymphs % (Man) 0 % 03/10/19 14:32 Monocytes % (Manual) 3.0 % (0.0-7.3) 03/10/19 14:32 Eosinophils % (Manual) 1.0 % (0.0-4.3) 03/10/19 14:32 Basophils % (Manual) 0 % (0.0-1.8) 03/10/19 14:32 Metamyelocytes % 0 % 03/10/19 14:32 Myelocytes % 0 % 03/10/19 14:32 Promyelocytes % 0 % 03/10/19 14:32 Blast Cells % 0 % 03/10/19 14:32 Nucleated RBC % Not Reportable 03/10/19 14:32 Seg Neutrophils # 2.4 K/mm3 (1.8-7.7) 03/12/19 16:12 Seg Neutrophils # Man 5.9 K/mm3 (1.8-7.7) 03/10/19 14:32 Band Neutrophils # 0.0 K/mm3 03/10/19 14:32 Abs Lymphs (Manual) 1090 cells/uL (850-3900) 03/10/19 14:32 Lymphocytes # (Manual) 1.1 K/mm3 (1.2-5.4) L 03/10/19 14:32 Abs React Lymphs (Man) 0.0 K/mm3 03/10/19 14:32 Monocytes # (Manual) 0.2 K/mm3 (0.0-0.8) 03/10/19 14:32 Eosinophils # (Manual) 0.1 K/mm3 (0.0-0.4) 03/10/19 14:32 Basophils # (Manual) 0.0 K/mm3 (0.0-0.1) 03/10/19 14:32 Metamyelocytes # 0.0 K/mm3 03/10/19 14:32 Myelocytes # 0.0 K/mm3 03/10/19 14:32 Promyelocytes # 0.0 K/mm3 03/10/19 14:32 Blast Cells # 0.0 K/mm3 03/10/19 14:32 WBC Morphology Not Reportable 03/10/19 14:32 Hypersegmented Neuts Not Reportable 03/10/19 14:32 Hyposegmented Neuts Not Reportable 03/10/19 14:32 Hypogranular Neuts Not Reportable 03/10/19 14:32 Smudge Cells Not Reportable 03/10/19 14:32 Toxic Granulation Not Reportable 03/10/19 14:32 Toxic Vacuolation Not Reportable 03/10/19 14:32 Dohle Bodies Not Reportable 03/10/19 14:32 Pelger-Huet Anomaly Not Reportable 03/10/19 14:32 Marco A Rods Not Reportable 03/10/19 14:32 Platelet Estimate Not Reportable 03/10/19 14:32 Clumped Platelets Not Reportable 03/10/19 14:32 Plt Clumps, EDTA Not Reportable 03/10/19 14:32 Large Platelets Not Reportable 03/10/19 14:32 Giant Platelets Not Reportable 03/10/19 14:32 Platelet Satelliting Not Reportable 03/10/19 14:32 Plt Morphology Comment Not Reportable 03/10/19 14:32 RBC Morphology Normal 03/10/19 14:32 Dimorphic RBCs Not Reportable 03/10/19 14:32 Polychromasia Not Reportable 03/10/19 14:32 Hypochromasia Not Reportable 03/10/19 14:32 Poikilocytosis Not Reportable 03/10/19 14:32 Anisocytosis Not Reportable 03/10/19 14:32 Microcytosis Not Reportable 03/10/19 14:32 Macrocytosis Not Reportable 03/10/19 14:32 Spherocytes Not Reportable 03/10/19 14:32 Pappenheimer Bodies Not Reportable 03/10/19 14:32 Sickle Cells Not Reportable 03/10/19 14:32 Target Cells Not Reportable 03/10/19 14:32 Tear Drop Cells Not Reportable 03/10/19 14:32 Ovalocytes Not Reportable 03/10/19 14:32 Helmet Cells Not Reportable 03/10/19 14:32 [place] Bodies Not Reportable 03/10/19 14:32 [place] Rings Not Reportable 03/10/19 14:32 [place] Cells Not Reportable 03/10/19 14:32 Bite Cells Not Reportable 03/10/19 14:32 Crenated Cell Not Reportable 03/10/19 14:32 Elliptocytes Not Reportable 03/10/19 14:32 Acanthocytes (Spur) Not Reportable 03/10/19 14:32 Rouleaux Not Reportable 03/10/19 14:32 Hemoglobin C Crystals Not Reportable 03/10/19 14:32 Schistocytes Not Reportable 03/10/19 14:32 Malaria parasites Not Reportable 03/10/19 14:32 Sander Bodies Not Reportable 03/10/19 14:32 Hem Pathologist Commnt No 03/10/19 14:32 PT 12.9 Sec. (12.2-14.9) 03/08/19 22:36 INR 0.92 (0.87-1.13) 03/08/19 22:36 APTT 25.9 Sec. (24.2-36.6) 03/08/19 22:36 Sodium 134 mmol/L (137-145) L 03/16/19 04:47 Potassium 4.6 mmol/L (3.6-5.0) 03/16/19 04:47 Chloride 98.7 mmol/L (98-107) 03/16/19 04:47 Carbon Dioxide 21 mmol/L (22-30) L 03/16/19 04:47 Anion Gap 19 mmol/L 03/16/19 04:47 BUN 10 mg/dL (9-20) 03/16/19 04:47 Creatinine 1.1 mg/dL (0.8-1.5) 03/16/19 04:47 Estimated GFR > 60 ml/min 03/16/19 04:47 BUN/Creatinine Ratio 9 % 03/16/19 04:47 Glucose 81 mg/dL (75-100) 03/16/19 04:47 Calcium 8.7 mg/dL (8.4-10.2) 03/16/19 04:47 Total Bilirubin < 0.20 mg/dL (0.1-1.2) 03/08/19 22:36 AST 21 units/L (5-40) 03/08/19 22:36 ALT 20 units/L (7-56) 03/08/19 22:36 Alkaline Phosphatase 88 units/L (35-129) 03/08/19 22:36 Lactate Dehydrogenase 327 units/L (91-180) H 03/08/19 22:36 Total Protein 8.2 g/dL (6.3-8.2) 03/08/19 22:36 Albumin 4.0 g/dL (3.9-5) 03/08/19 22:36 Albumin/Globulin Ratio 1.0 % 03/08/19 22:36 Urine Color Yellow (Yellow) 03/09/19 10:00 Urine Turbidity Clear (Clear) 03/09/19 10:00 Urine pH 7.0 (5.0-7.0) 03/09/19 10:00 Ur Specific [place] 1.027 (1.003-1.030) 03/09/19 10:00 Urine Protein <15 mg/dl mg/dL (Negative) 03/09/19 10:00 Urine Glucose (UA) Neg mg/dL (Negative) 03/09/19 10:00 Urine Ketones Neg mg/dL (Negative) 03/09/19 10:00 Urine Blood Neg (Negative) 03/09/19 10:00 Urine Nitrite Neg (Negative) 03/09/19 10:00 Urine Bilirubin Neg (Negative) 03/09/19 10:00 Urine Urobilinogen < 2.0 mg/dL (<2.0) 03/09/19 10:00 Ur Leukocyte Esterase Neg (Negative) 03/09/19 10:00 Urine WBC (Auto) 1.0 /HPF (0.0-6.0) 03/09/19 10:00 Urine RBC (Auto) 1.0 /HPF (0.0-6.0) 03/09/19 10:00 Urine Mucus Few /HPF 03/09/19 10:00 Lymph Enumerat CD4/CD8 0.02 (0.86-5.00) L 03/10/19 14:32 % CD3 Cells 64 % (57-85) 03/10/19 14:32 Absolute CD3 Count 699 cells/uL (840-3060) L 03/10/19 14:32 % CD4 Cells 1 % (30-61) L 03/10/19 14:32 Absolute CD4 Count 16 cells/uL (490-1740) L 03/10/19 14:32 % CD8 Cells 60 % (12-42) H 03/10/19 14:32 Absolute CD8 Count 656 cells/uL (180-1170) 03/10/19 14:32 % CD19 Cells 9 % (6-29) 03/10/19 14:32 Absolute CD19 Count 95 cells/uL (110-660) L 03/10/19 14:32 HIV-1 RNA PCR copies/ml 45356 Copies/mL H 03/10/19 14:32 HIV-1 RNA (PCR) log 4.57 Log cps/mL H 03/10/19 14:32 Miscellaneous Test Flexitest 1 03/10/19 14:32 Active Medications - Current Medications Current Medications: Generic Name Dose Route Start Last Admin Trade Name Freq PRN Reason Stop Dose Admin Abacavir Sulfate 600 mg 03/09/19 15:00 03/17/19 10:55 Ziagen PO 600 mg DAILY TALITA Administration Acetaminophen 650 mg 03/09/19 04:38 Tylenol PO Q4H PRN Pain MILD(1-3)/Fever >100.5/BENNETT Hydrocortisone Acetate 1 applic 03/09/19 14:14 03/14/19 09:36 Proctosol-Hc [place] 1 applic Q8H PRN Administration Hemorrhoids Hydromorphone HCl 0.5 mg 03/09/19 16:45 03/17/19 10:57 Dilaudid IV 0.5 mg Q4H PRN Administration Pain , Severe (7-10) Ceftriaxone Sodium 1 gm in 50 mls @ 100 mls/hr 03/09/19 06:00 03/17/19 06:07 Rocephin/Ns 1 Gm/50 Ml IV 100 mls/hr Q24H TALITA Administration Protocol Trimethoprim/Sulfamethoxazole 529.6875 mls @ 350 mls/hr 03/09/19 16:00 03/17/19 06:57 475 mg/ Dextrose IV 350 mls/hr Q6HR TALITA Administration Protocol Micafungin Sodium 100 mg/ 100 mls @ 100 mls/hr 03/10/19 16:00 03/17/19 10:58 Sodium Chloride IV 100 mls/hr QDAY TALITA Administration Protocol Acyclovir 780 mg/ Sodium 115.6 mls @ 100 mls/hr 03/14/19 18:00 03/17/19 10:58 Chloride IV 100 mls/hr Q8H TALITA Administration Protocol Lamivudine 300 mg 03/09/19 15:00 03/17/19 10:56 Epivir PO 300 mg DAILY TALITA Administration Ondansetron HCl 4 mg 03/09/19 04:38 03/16/19 20:54 Zofran IV 4 mg Q8H PRN Administration Nausea And Vomiting Pantoprazole Sodium 40 mg 03/13/19 22:00 03/17/19 10:56 Protonix PO 40 mg BID TALITA Administration Sodium Chloride 10 ml 03/09/19 10:00 03/17/19 10:56 Sodium Chloride Flush Syringe 10 Ml IV 10 ml BID TALITA Administration Sodium Chloride 10 ml 03/09/19 04:38 03/14/19 20:26 Sodium Chloride Flush Syringe 10 Ml IV 10 ml PRN PRN Administration LINE FLUSH Nutrition/Malnutrition Assess - Dietary Evaluation Nutrition/Malnutrition Findings: Nutrition Notes Start: 03/16/19 09:56 Freq: Status: Active Protocol: Document 03/16/19 09:56 CP (Rec: 03/16/19 10:11 CP [id number]) Co-Sign 03/16/19 09:56 LP Nutrition Notes Need for Assessment generated from: LOS Initial or Follow up Assessment Other Pertinent Diagnosis Bilateral pneumonia, HIV/AIDS, nicotine dependence, oropharyngeal candidias Current Diet NPO after midnight Labs/Tests Na 134 Pertinent Medications Reviewed Height 6 ft Weight 93.5 kg Usual Body Weight 95 kg [place] Body Weight (kg) 80.90 BMI 27.9 Intake Prior to Admission Poor Weight Status Morbidly Obese Subjective/Other Information RD screen for LOS. Pt reports decreased weight and low appetite prior to admission. Pt does not know how much his weight decreased and reports having nausea. Pt also reported consuming only 50% of meals. Pt has lactose intolerance and discussed getting ensure clear once diet is resumed. Percent of energy/protein needs met: 0%/0% Burn Absent Trauma Absent #1 Nutrition Diagnosis Inadequate oral intake Etiology Decreased appetite and nausea As Evidenced by Signs and Symptoms Unintentional weight loss and consuming less than 50% of meals prior to NPO status Is patient on ventilator? No Is Patient Ambulatory and/or Out of Bed Yes REE-([facility]-ambulatory/OOB) [ [id number] [id number]] Calculation Used for Recommendations [facility] Additional Notes Pro: (0.8-1g/kg) 75-96g/day Fluid: 1mL/kcal Nutrition Intervention Change Diet Order: Advance per MD request Add Supplement/Snack (indicate name/kcal Ensure Clear Apple TID /protein ) Provides kCal: 720 Provides Protein (gm) 24 Barriers to Learning Reading skills Goal #1 PO/ONS intake to meet at least 80% of energy and protein needs once diet is advanced Anticipated Discharge Needs: Unable to determine at this time Follow-Up By: 03/18/19 Additional Comments F/U: PO/ONS intakes
--- NOTE | 2019-03-17 12:31 | Progress Note ---
Assessment and Plan Imp: 1. Reported hemoptysis 2. Pneumonia 3. HIV/AIDS 4. Oropharyngeal candidiasis 5. Chronic nicotine dependence, cigarettes Rec: 1. Bronch completely normal; BAL cytology unremarkable except for smoker's macrophages; there is nothing clinically, radiographically, or bronchoscopically to suggest that the blood in the cup at his bedside has emanated from his lungs/airways 2. ABX per ID 3. Stop smoking 4. Okay to go home pulmonary-[place] Plan of care reviewed with patient, he understands/agrees Subjective Date of service: 03/17/19 Principal diagnosis: GI bleed Interval history: No events. Bronch done without issues. Not spitting up blood today. No new complaints. Active Medications Abacavir Sulfate (Ziagen) 600 mg PO DAILY TALITA Last Admin: 03/17/19 10:55 Dose: 600 mg Documented by: Acetaminophen (Tylenol) 650 mg PO Q4H PRN PRN Reason: Pain MILD(1-3)/Fever >100.5/BENNETT Hydrocortisone Acetate (Proctosol-Hc) 1 applic [place] Q8H PRN PRN Reason: Hemorrhoids Last Admin: 03/14/19 09:36 Dose: 1 applic Documented by: Hydromorphone HCl (Dilaudid) 0.5 mg IV Q4H PRN PRN Reason: Pain , Severe (7-10) Last Admin: 03/17/19 10:57 Dose: 0.5 mg Documented by: Ceftriaxone Sodium (Rocephin/Ns 1 Gm/50 Ml) 1 gm in 50 mls @ 100 mls/hr IV Q24H TALITA; Protocol Last Admin: 03/17/19 06:07 Dose: 100 mls/hr Documented by: Trimethoprim/Sulfamethoxazole (475 mg/ Dextrose) 529.6875 mls @ 350 mls/hr IV Q6HR TALITA; Protocol Last Admin: 03/17/19 12:24 Dose: 350 mls/hr Documented by: Micafungin Sodium 100 mg/ (Sodium Chloride) 100 mls @ 100 mls/hr IV QDAY TALITA; Protocol Last Admin: 03/17/19 10:58 Dose: 100 mls/hr Documented by: Acyclovir 780 mg/ Sodium (Chloride) 115.6 mls @ 100 mls/hr IV Q8H TALITA; Protocol Last Admin: 03/17/19 10:58 Dose: 100 mls/hr Documented by: Lamivudine (Epivir) 300 mg PO DAILY [facility] Last Admin: 03/17/19 10:56 Dose: 300 mg Documented by: Ondansetron HCl (Zofran) 4 mg IV Q8H PRN PRN Reason: Nausea And Vomiting Last Admin: 03/16/19 20:54 Dose: 4 mg Documented by: Pantoprazole Sodium (Protonix) 40 mg PO BID [facility] Last Admin: 03/17/19 10:56 Dose: 40 mg Documented by: Sodium Chloride (Sodium Chloride Flush Syringe 10 Ml) 10 ml IV BID [facility] Last Admin: 03/17/19 10:56 Dose: 10 ml Documented by: Sodium Chloride (Sodium Chloride Flush Syringe 10 Ml) 10 ml IV PRN PRN PRN Reason: LINE FLUSH Last Admin: 03/14/19 20:26 Dose: 10 ml Documented by: Objective Vital Signs - 12hr 03/17/19 03/17/19 03/17/19 00:41 05:41 06:57 Temperature 98.5 F Pulse Rate 99 H Respiratory 16 18 20 Rate Blood Pressure 123/66 O2 Sat by Pulse 98 Oximetry Constitutional: no acute distress, alert Eyes: non-icteric ENT: oropharynx moist Neck: supple Effort: normal Ascultation: Bilateral: clear Cardiovascular: regular rate and rhythm (no mrg) Gastrointestinal: normoactive bowel sounds, soft, non-tender, non-distended Integumentary: normal Extremities: no cyanosis, no edema, pink and warm Neurologic: normal mental status, non-focal exam, pupils equal and round, CN II- XII normal Psychiatric: mood appropriate, affect normal CBC and BMP: 03/16/19 17:15 03/16/19 04:47 ABG, PT/INR, D-dimer: PT/INR, D-dimer PT 12.9 Sec. (12.2-14.9) 03/08/19 22:36 INR 0.92 (0.87-1.13) 03/08/19 22:36 Abnormal lab findings: Abnormal Labs 03/08/19 03/09/19 03/09/19 22:36 00:50 04:52 WBC Hgb 10.7 L 9.0 L Hct 32.3 L 28.1 L MCV 76 L 77 L MCH 25 L 25 L RDW 22.2 H 24.5 H Lymph % (Auto) [place] % (Auto) 11.7 H [place] # 0.9 H Seg Neuts % (Manual) Monocytes % (Manual) 10.0 H Eosinophils % (Manual) 5.0 H Lymphocytes # (Manual) Sodium Chloride Carbon Dioxide Glucose Lactate Dehydrogenase 327 H Lymph Enumerat CD4/CD8 Absolute CD3 Count % CD4 Cells Absolute CD4 Count % CD8 Cells Absolute CD19 Count HIV-1 RNA PCR copies/ml HIV-1 RNA (PCR) log 03/09/19 03/09/19 03/10/19 05:47 12:36 14:32 WBC Hgb 10.7 L Hct 32.8 L MCV MCH RDW Lymph % (Auto) [place] % (Auto) [place] # Seg Neuts % (Manual) Monocytes % (Manual) Eosinophils % (Manual) Lymphocytes # (Manual) Sodium Chloride Carbon Dioxide Glucose 101 H Lactate Dehydrogenase Lymph Enumerat CD4/CD8 0.02 L Absolute CD3 Count 699 L % CD4 Cells 1 L Absolute CD4 Count 16 L % CD8 Cells 60 H Absolute CD19 Count 95 L HIV-1 RNA PCR copies/ml HIV-1 RNA (PCR) log 03/10/19 03/10/19 03/12/19 14:32 14:32 16:12 WBC 4.4 L Hgb 11.3 L 10.4 L Hct 33.9 L 32.0 L MCV 76 L 76 L MCH 25 L 25 L RDW 22.3 H 21.8 H Lymph % (Auto) 39.0 H [place] % (Auto) [place] # Seg Neuts % (Manual) 81.0 H Monocytes % (Manual) Eosinophils % (Manual) Lymphocytes # (Manual) 1.1 L Sodium Chloride Carbon Dioxide Glucose Lactate Dehydrogenase Lymph Enumerat CD4/CD8 Absolute CD3 Count % CD4 Cells Absolute CD4 Count % CD8 Cells Absolute CD19 Count HIV-1 RNA PCR copies/ml 86985 H HIV-1 RNA (PCR) log 4.57 H 03/14/19 03/14/19 03/15/19 09:30 09:30 14:47 WBC Hgb Hct MCV 75 L MCH 25 L RDW 22.0 H Lymph % (Auto) [place] % (Auto) [place] # Seg Neuts % (Manual) Monocytes % (Manual) Eosinophils % (Manual) Lymphocytes # (Manual) Sodium 129 L 133 L Chloride 97.3 L Carbon Dioxide 18 L 20 L Glucose 142 H Lactate Dehydrogenase Lymph Enumerat CD4/CD8 Absolute CD3 Count % CD4 Cells Absolute CD4 Count % CD8 Cells Absolute CD19 Count HIV-1 RNA PCR copies/ml HIV-1 RNA (PCR) log 03/16/19 03/16/19 04:47 17:15 WBC Hgb 11.1 L Hct 34.1 L MCV 75 L MCH 24 L RDW 21.7 H Lymph % (Auto) [place] % (Auto) [place] # Seg Neuts % (Manual) Monocytes % (Manual) Eosinophils % (Manual) Lymphocytes # (Manual) Sodium 134 L Chloride Carbon Dioxide 21 L Glucose Lactate Dehydrogenase Lymph Enumerat CD4/CD8 Absolute CD3 Count % CD4 Cells Absolute CD4 Count % CD8 Cells Absolute CD19 Count HIV-1 RNA PCR copies/ml HIV-1 RNA (PCR) log Chest x-ray: report reviewed, image reviewed CT scan - chest: report reviewed, image reviewed
[2019-03-17] MEDS: ZOFRAN IV PRN (15:19)
[2019-03-17] MEDS: BACTRIM DS PO SCH (18:38)
[2019-03-17 20:35] LABS: Hematocrit 32.5 % (35.5-45.6); Hemoglobin 10.7 gm/dl (11.8-15.2); Mean Corpuscular HGB Conc 33 % (32-34); Mean Corpuscular Volume 76 fl (84-94); Platelet Count 280 K/mm3 (140-440)
[2019-03-17 20:36] LABS: Red Cell Distribution Width 21.7 % (13.2-15.2)
[2019-03-17 22:00] LABS: Basophils % (Manual) 0 % (0.0-1.8); Total Cells Counted 100
[2019-03-17 22:01] LABS: Anisocytosis 1+; Poikilocytosis 2+
[2019-03-18] MEDS: DILAUDID IV PRN ×3 (00:38→09:20)
[2019-03-18] MEDS: ZOFRAN IV PRN ×2 (00:38→09:21)
--- NOTE | 2019-03-18 08:56 | Progress Note ---
Assessment and Plan Cultures: Cryptococcal Antigen: negative MRSA PCR: negative Bronch Lavage RML: no growth A/P: 34-alug-tpr-male with a past medical history of PCP pneumonia 2010, gastric ulc ers, pneumothroax Gr II internal hemorrhoids and HIV. Review of medical records at [facility] reveals CD4 count 32 and VL >350,000 in 2014.. He states that his last CD4 count was in the low 30's 2 months ago.The patient is noncompliant on HIV therapy with refractory malorie infection requiring micafungin during past admissions. Now admitted with: 1. Community Acquired Pneumonia vs PCP: Chest xray shows extensive bilateral airspace disease. Pleural fluid is not seen. Chest CT shows very subtle ground glass, ?mild PCP pneumonia. Repeat chest xray shows patchy bilateral airspace disease mentioned on previous xray has resolved. Sputum collected too low a quantity to be able to run PJP DFA 2. HIV: Currently taking Triumeg, for 2 months, previously non-compliant with medication regimen. Now with Dr. Bar, [facility]. Review of medical records at [facility] reveals CD4 count 32 and VL >350,000 in 2014. CD4 count 60's and VL > 1 million 2 months ago. Current CD4 count 16, VL 37,000. Triumeg non-formulary, continue Epzicom and Tivicay. TTE is normal. Serum 1, 3, Beta d glucan- negative 3. Rectal Bleeding: Resolved. due to internal hemorrhoids: 4. Oropharyngeal candidiasis: Improved, with concern for possible esophagitis. Malorie infection seen on exam on the back of the oropharynx, history of severe malorie infection that does not respond to Fluconazole. Continue Micafungin 5. Hemoptysis vs Hematemesis: Improved, related to esophagitis/?[place]. S/p Bronchoscopy on 03/18/19 unremarkable. Plan: -continue Epzicom and Tivicay while inpatient -f/u Streptoccocus Pneumoniae urinary antigen,Legionella Antigen, EIA, Serum -f/u with Dr. Bar - [facility] in 1 week -OK to discharge from ID standpoint on Bactrim 1 DS PO q 24 hours- Prescription on the chart -upon discharge restart Triumeg [facility] M: [phone] O:[phone] Subjective Date of service: 03/18/19 Principal diagnosis: GI bleed Interval history: Patient seen and examined. laying in bed, alert and oriented. No acute distress. No fevers. Objective - Exam Narrative Exam: Constitutional: Alert, cooperative . No acute distress Head, Ears, Nose: Normocephalic, atraumatic. External ears, nose normal Eyes: Conjunctivae/corneas clear. No icterus. No ptosis. Neck: Supple, no meningeal signs Oral: dentition good, no thrush. Cardiovascular: S1, S2 normal. Respiratory: Good air entry, clear to auscultation bilaterally GI: Soft, non-tender; bowel sounds normal., Musculoskeletal: No pedal edema, no cyanosis. Skin: No rash or abscess. + tattoos Hem/Lymphatic: No palpable cervical or supraclavicular nodes. No lymphangitis Psych: Mood ok. Affect normal Neurological: Awake, alert, oriented. G - Constitutional Vitals: Vital Signs Temp Pulse Resp BP Pulse Ox 98.3 F 83 20 112/77 97 03/18/19 05:22 03/18/19 05:22 03/18/19 05:37 03/18/19 05:22 03/18/19 05:22 Temperature -Last 24 Hours Temperature 98.3 F Temperature 98.4 F Temperature 98.0 F Temperature 98.1 F - Labs CBC & Chem 7: 03/17/19 20:18 03/16/19 04:47 Labs: Abnormal lab results 03/17/19 Range/Units 20:18 Hgb 10.7 L (11.8-15.2) gm/dl Hct 32.5 L (35.5-45.6) % MCV 76 L (84-94) fl MCH 25 L (28-32) pg RDW 21.7 H (13.2-15.2) % Monocytes % (Manual) 9.0 H (0.0-7.3) %
[2019-03-18] MEDS: BACTRIM DS PO SCH (09:18)
[2019-03-18] MEDS: PROTONIX PO SCH (09:18)
[2019-03-18] MEDS: EPIVIR PO SCH (09:19)
[2019-03-18] MEDS: ZIAGEN PO SCH (09:20)
[2019-03-18] MEDS: TIVICAY PO SCH (09:20)
[2019-03-18] MEDS: SODIUM CHLORIDE FLUSH SYRINGE 10 ML IV SCH (09:22)
--- NOTE | 2019-03-18 11:01 | Discharge Summary ---
Providers - Providers Date of Admission: 03/09/19 04:38 Date of discharge: 03/18/19 Attending physician: JAYLEN PÉREZ 03/09/19 04:38 Consult to Physician [CONS] Routine Comment: Consulting Provider: MARILU MARK Physician Instructions: Reason For Exam: pna, hiv 03/09/19 09:12 Consult to Physician [CONS] Routine Comment: Consulting Provider: CEDRICK KAHN Physician Instructions: Reason For Exam: Rectal bleed, vomiting, blood tinged,hemorrhoids 03/12/19 10:18 Consult to Physician [CONS] Routine Comment: Consulting Provider: ED HOLLY Physician Instructions: Reason For Exam: Coughing up blood,Bilateral airspace disease, HIV 03/12/19 15:11 Midline [Consult to PICC Line RN] [CONS] Routine Reason For Exam: poor venous access Type Line:: Midline Primary care physician: KYLER WEINSTEIN Hospitalization Reason for admission: pna Condition: Fair Hospital course: Patient is 34 yo with HIV/AIDS, history of coronary embolism status post IVC filter, refractory vito esophagitis, multiple EGD and colonoscopies. He had presented with hematemesis, hemoptysis and blood in stool. He was evaluated in ED. Chest X ray suggested bilat pneumonia. He was started on iv Abx admitted. GI, Pulm and ID consulted. GI recommend conservative management since H/H stable. ID initiated Ceftriaxone , Bactrim iv for possible PCP pneumonia, Micafungin for esophagitis. CT angio was negative for PE. Patient continued to have hematemesis. 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 For bronchoscopy on 03/16/19 that revealed Vocal cords, oropharynx, epiglottis, trachea, all airways are normal. No bleeding or endobronchial lesions. Therefore, acyclovir was discontinued. GI evaluated the patient and reported last colonoscopy 07/2018 showed moderate internal hemorrhoids. Also, they felt etiology of hematemesis and hematochezia likely secondary to known vito esophagitis; hematochezia-likely anorectal in origin due to hemorrhoids. GI had no plans to repeat scope as long as Hgb is not rapidly dropping or overt bleeding, given no significant clinical bleeding at this time. GI recommended to continue PPI twice a day, avoid NSAIDs, continue topical steroids for hemorrhoids and follow-up as an outpatient. ID recommended to continue Bactrim 1 DS PO q 24 hours- Prescription on the chart and restarting Triumeg. Dedicated this ultrasound 32 minutes. Disposition: DC-01 TO HOME OR SELFCARE Time spent for discharge: 32 - Discharge Diagnoses (1) Bilateral pneumonia Status: Acute (2) Dyspnea on exertion Status: Acute (3) Acute hemorrhoid Status: Acute (4) Hematemesis Status: Acute Qualifiers: Nausea presence: with nausea Qualified Code(s): K92.0 - Hematemesis (5) Hx of hemorrhoids Status: Acute (6) Sepsis Status: Acute (7) Vito esophagitis Status: Chronic (8) HIV (human immunodeficiency virus infection) Status: Chronic (9) Thrush Status: Chronic Core Measure Documentation - Palliative Care Palliative Care/ Comfort Measures: Not Applicable - Core Measures Any of the following diagnoses?: none Exam - Constitutional Vitals: Temp Pulse Resp BP Pulse Ox 98.3 F 83 20 112/77 97 03/18/19 05:22 03/18/19 05:22 03/18/19 05:37 03/18/19 05:22 03/18/19 05:22 General appearance: Present: no acute distress, well-nourished - EENT Eyes: Present: PERRL ENT: hearing intact, clear oral mucosa - Neck Neck: Present: supple, normal ROM - Respiratory Respiratory effort: normal Respiratory: bilateral: CTA - Cardiovascular Heart Sounds: Present: S1 & S2. Absent: rub, click - Extremities Extremities: pulses symmetrical, No edema Peripheral Pulses: within normal limits - Abdominal General gastrointestinal: Present: soft, non-tender, non-distended, normal bowel sounds Male genitourinary: Present: normal - Integumentary Integumentary: Present: clear, warm, dry - Musculoskeletal Musculoskeletal: gait normal, strength equal bilaterally - Psychiatric Psychiatric: appropriate mood/affect, intact judgment & insight - Neurologic Neurologic: CNII-XII intact, moves all extremities Plan Activity: advance as tolerated Weight Bearing Status: Weight Bear as Tolerated Diet: regular Follow up with: KYLER WEINSTEIN MD [Primary Care Provider] - 3-5 Days MARILU MARK MD [Staff Physician] - 7 Days JESSENIA DOBBS MD [Staff Physician] - 7 Days CEDRICK KAHN MD [Staff Physician] - 7 Days Forms: Accompanied Note Prescriptions: Sulfamethoxazole/Trimethoprim [Bactrim DS TAB] 1 each PO QDAY 30 Days #30 tablet Oxycodone HCl [Oxycontin] 1 tab PO Q6HR PRN #6 tab.er.12h PRN Reason: Pain , Severe (7-10) Hydrocortisone 2.5% [Proctosol-Hc] 1 applic IA Q8H PRN 30 Days tube PRN Reason: Hemorrhoids Pantoprazole [Protonix TAB] 40 mg PO BID #60 tablet
[2019-03-18 12:43] VITALS: BP 104/75
== END 2019-03-18 15:00 | disposition home or self-care (01) | DRG 975 ==
LOC: ED 19:33 → 3A 03-09 04:38
PROVIDERS: ADMIT Internal Medicine; ATTEND Hospitalist
PROC: 05HY33Z Insertion of Infusion Device into Upper Vein, Percutaneous Approach (ICD-10-PCS; 2019-03-12)
PROC: 0B9D7ZX Drainage of Right Middle Lung Lobe, Via Natural or Artificial Opening, Diagnostic (ICD-10-PCS; principal; 2019-03-16)
DX: B20 Human immunodeficiency virus [HIV] disease (principal); K92.0 Hematemesis; J18.9 Pneumonia, unspecified organism; B37.81 Candidal esophagitis; R04.2 Hemoptysis; K64.8 Other hemorrhoids; A41.9 Sepsis, unspecified organism; K22.8 Other specified diseases of esophagus; F17.200 Nicotine dependence, unspecified, uncomplicated; Z72.89 Other problems related to lifestyle; Z82.49 Family history of ischemic heart disease and other diseases of the circulatory system; Z88.5 Allergy status to narcotic agent; Z91.041 Radiographic dye allergy status; Z79.899 Other long term (current) drug therapy; Z93.1 Gastrostomy status; Z91.19 Patient's noncompliance with other medical treatment and regimen; Z71.6 Tobacco abuse counseling
CPT/HCPCS: 36415; 71046; 71250; 71275; 80048; 80053; 81001; 82024; 83615; 85007; 85014; 85018; 85025; 85027; 85610; 85730; 86403; 87102; 87116; 87536; 88112; 93306; 99406; G0378; C9113; J0133; J0171; J0696; J1170; J2248; J2250; J2405; J2704; J3010; J7030; J7060; J7512; Q9967

== ENCOUNTER 2019-12-30 10:50 | Emergency (ER) | payer MEDICAID ==
--- NOTE | 2019-12-30 11:13 | Event Note ---
ED Screening Note ED Screening Note: 34 YO TACHYCARDIC MALE COMES TO ER WITH RECTAL BLEEDING- MAROON COLORED STOOL FOOD MAKES PAIN WORSE; CO EPIGASTRIC PAIN TACHY WITHOUT FEVER PMH HIV DX IN 2008 IN [facility] 11/26 TO 12/15 FOR PCP AND BACTERIAL INFECTION; HE HAS PICC LINE AND IS GETTING DAPTO AND ROCEPHIN HX GASTRIC ULCERS- HAD U/L GI- BEEN A WHILE PER PT PE PCP MILES TORREZ RX TRIMIC PROTONIX BACTRIM DAPTO IV ROCEPHIN IV This initial assessment/diagnostic orders/clinical plan/treatment(s) is/are subject to change based on patients health status, clinical progression and re- assessment by fellow clinical providers in the ED. Further treatment and workup at subsequent clinical providers discretion. Patient/guardian urged not to elope from the ED as their condition may be serious if not clinically assessed and managed. Initial orders include: EKG FOR TACHY CBC/CMP UA
--- NOTE | 2019-12-30 12:31 | XRay Report ---
ABDOMEN 4 VIEW(S) INDICATION: Unspecified abdominal pain.. COMPARISON: CT abdomen and pelvis without contrast from 02/08/2018. FINDINGS: Bowel gas pattern: The colon contains a large amount of stool. No dilated bowel loops. Free air: None seen. Stones: None seen. Chest: There are generalized bilateral interstitial opacities. A left arm PICC terminates over the pr oximal SVC. Additional Findings: An IVC filter is centered at the level of L2-L3. IMPRESSION: 1. Findings suggestive of constipation. No other acute abnormality of the abdomen. 2. Nonspecific bilateral pulmonary opacities. Considerations include edema/atelectasis and pneumonia. Signer Name: King Cross MD Signed: 12/30/2019 12:26 PM Workstation Name: [id number]
[2019-12-30] MEDS ORDERED: ALUM-MAG HYDROXIDE-SIMETHICONE 200-200-20MG/5ML ORAL LIQD 30 ML PO ONE (15:18)
[2019-12-30] MEDS ORDERED: LIDOCAINE VISCOUS 2% 15 ML ORAL LIQD PO ONE (15:18)
[2019-12-30] MEDS ORDERED: PANTOPRAZOLE 40 MG INJ IV ONE (15:18)
--- NOTE | 2019-12-30 15:20 | Emergency Department Report ---
ED General Adult HPI - General Chief complaint: GI Bleed Stated complaint: STOMACH PAIN/RECTAL BLEEDING Time Seen by Provider: 12/30/19 11:10 Source: patient Mode of arrival: Ambulatory Limitations: No Limitations - History of Present Illness Initial comments: 34 YO AA MALE COMES TO ER WITH EPIGASTRIC PAIN AND REPORTS OF BLOOD TINGED EMESIS. PT RECENTLY IN HOSP FOR PCP PNA. HE HAS A PICC LINE AND GETS HOME DAPTO/ROCEPHIN; HE IS ALSO ON PO BACTRUM. SEE SCREENING NOTE. NO VOMITING ON TRIAGE OR SERIAL EXAMS. PMH HIV/PCP GERD HX GASTRIC ULCERS HX ETOH USE- DENIES NOW PT REPORTS DURING RECENT HOSP HE HAD BACTERIA IN HIS BLOOD ON ADMIT NO FEVER. HR ELEVATED. SBP 100. VS NORMALIZED WITH NS. -: Gradual, days(s) Improves with: none Worsens with: none Associated Symptoms: denies other symptoms Treatments Prior to Arrival: none - Related Data Previous Rx's Medication Instructions Recorded Last Taken Type Sulfamethoxazole/Trimethoprim 1 each PO DAILY tablet 03/18/19 Unknown Rx [Bactrim DS TAB] Pantoprazole [Protonix] 40 mg PO BID #60 tablet 12/30/19 Unknown Rx Polyethylene Glycol 3350 [Miralax] 119 gm PO DAILY #30 powder 12/30/19 Unknown Rx Allergies Allergy/AdvReac Type Severity Reaction Status Date / Time azithromycin Allergy Swelling Verified 01/24/16 16:22 Iodinated Contrast Media Allergy Hives Verified 12/30/19 10:52 [Iodinated Contrast- Oral and IV Dye] ketorolac tromethamine Allergy Rash Verified 12/30/19 10:52 [From Toradol] metoclopramide HCl Allergy Hives Verified 12/30/19 10:52 [From Reglan] morphine Allergy Vomiting Verified 12/30/19 10:52 tramadol Allergy Hives Verified 12/30/19 10:52 ED Review of Systems ROS: Stated complaint: STOMACH PAIN/RECTAL BLEEDING Other details as noted in HPI Comment: All other systems reviewed and negative ED Past Medical Hx - Past Medical History Previous Medical History?: Yes Hx Hypertension: No Hx CVA: No Hx Heart Attack/AMI: No Hx Congestive Heart Failure: No Hx Diabetes: No Hx Deep Vein Thrombosis: No Hx Pulmonary Embolism: Yes (pneumothorax) Hx GERD: Yes Hx Liver Disease: No Hx Renal Disease: No Hx of Cancer: No Hx Sickle Cell Disease: No Hx Arthritis: No Hx Headaches / Migraines: No Hx Seizures: No Hx Kidney Stones: No Hx Psychiatric Treatment: No Hx Asthma: No Hx COPD: No Hx Tuberculosis: No Hx Dementia: No Hx HIV: Yes Additional medical history: PCP pneumonia (2010), gastric ulcers - Surgical History Past Surgical History?: Yes Hx Pacemaker: No Hx Internal Defibrillator: No Additional Surgical History: BILATERAL knee surg, chest tube. PEG tube - Family History Family history: no significant - Social History Smoking Status: Current Every Day Smoker Substance Use Type: Alcohol, Marijuana - Medications Home Medications: Home Medications Medication Instructions Recorded Confirmed Last Taken Type Sulfamethoxazole/Trimethoprim 1 each PO DAILY tablet 03/18/19 Unknown Rx [Bactrim DS TAB] Pantoprazole [Protonix] 40 mg PO BID #60 tablet 12/30/19 Unknown Rx Polyethylene Glycol 3350 [Miralax] 119 gm PO DAILY #30 powder 12/30/19 Unknown Rx ED Physical Exam - General Limitations: No Limitations General appearance: alert, in no apparent distress - Head Head exam: Present: atraumatic, normocephalic - Eye Eye exam: Present: normal appearance - ENT ENT exam: Present: mucous membranes moist - Neck Neck exam: Present: normal inspection - Respiratory Respiratory exam: Present: normal lung sounds bilaterally. Absent: respiratory distress - Cardiovascular Cardiovascular Exam: Present: regular rate, normal rhythm. Absent: systolic murmur, diastolic murmur, rubs, gallop - GI/Abdominal GI/Abdominal exam: Present: soft, normal bowel sounds - Rectal Rectal exam: Present: deferred - Extremities Exam Extremities exam: Present: normal inspection - Back Exam Back exam: Present: normal inspection - Neurological Exam Neurological exam: Present: alert, oriented X3 - Psychiatric Psychiatric exam: Present: normal affect, normal mood - Skin Skin exam: Present: warm, dry, intact, normal color. Absent: rash ED Course Vital Signs 12/30/19 12/30/19 10:55 17:07 Temperature 99.3 F 98.2 F Pulse Rate 117 H 83 Respiratory 18 16 Rate Blood Pressure 101/64 Blood Pressure 117/87 [Left] O2 Sat by Pulse 99 99 Oximetry - Reevaluation(s) Reevaluation #1: 12/30/19 18:15 AMBULATORY TAKING PO VS NORMALIZED NO HEMETEMESIS ED Medical Decision Making - Lab Data Result diagrams: 12/30/19 15:38 12/30/19 15:38 - EKG Data -: EKG Interpreted by Ca EKG shows normal: sinus rhythm Rate: normal - EKG Data When compared to previous EKG there are: no significant change Interpretation: no acute changes - Radiology Data Radiology results: report reviewed, image reviewed - Medical Decision Making Lab Results 12/30/19 12/30/19 12/30/19 Range/Units 15:38 15:38 15:38 WBC 5.2 (4.5-11.0) K/mm3 RBC 4.64 (3.65-5.03) M/mm3 Hgb 12.2 (11.8-15.2) gm/dl Hct 37.5 (35.5-45.6) % MCV 81 L (84-94) fl MCH 26 L (28-32) pg MCHC 33 (32-34) % RDW 20.8 H (13.2-15.2) % Plt Count 228 (140-440) K/mm3 [place] % (Auto) Night Filler Sodium 140 (137-145) mmol/L Potassium 4.3 (3.6-5.0) mmol/L Chloride 100.8 (98-107) mmol/L Carbon Dioxide 23 (22-30) mmol/L Anion Gap 21 mmol/L BUN 13 (9-20) mg/dL Creatinine 1.1 (0.8-1.5) mg/dL Estimated GFR > 60 ml/min BUN/Creatinine Ratio 12 % Glucose 93 (75-100) mg/dL Lactic Acid 0.90 (0.7-2.0) mmol/L Calcium 9.8 (8.4-10.2) mg/dL Total Bilirubin < 0.20 (0.1-1.2) mg/dL AST 24 (5-40) units/L ALT 29 (7-56) units/L Alkaline Phosphatase 88 (35-129) units/L Total Protein 8.5 H (6.3-8.2) g/dL Albumin 4.7 (3.9-5) g/dL Albumin/Globulin Ratio 1.2 % Urine Color (Yellow) Urine Turbidity (Clear) Urine pH (5.0-7.0) Ur Specific [place] (1.003-1.030) Urine Protein (Negative) mg/dL Urine Glucose (UA) (Negative) mg/dL Urine Ketones (Negative) mg/dL Urine Blood (Negative) Urine Nitrite (Negative) Urine Bilirubin (Negative) Urine Urobilinogen (<2.0) mg/dL Ur Leukocyte Esterase (Negative) Urine WBC (Auto) (0.0-6.0) /HPF Urine RBC (Auto) (0.0-6.0) /HPF U Epithel Cells (Auto) (0-13.0) /HPF Urine Bacteria (Auto) (Negative) /HPF Urine Mucus /HPF Urine Yeast (Budding) /HPF 12/30/19 Range/Units 16:57 WBC (4.5-11.0) K/mm3 RBC (3.65-5.03) M/mm3 Hgb (11.8-15.2) gm/dl Hct (35.5-45.6) % MCV (84-94) fl MCH (28-32) pg MCHC (32-34) % RDW (13.2-15.2) % Plt Count (140-440) K/mm3 [place] % (Auto) Sodium (137-145) mmol/L Potassium (3.6-5.0) mmol/L Chloride (98-107) mmol/L Carbon Dioxide (22-30) mmol/L Anion Gap mmol/L BUN (9-20) mg/dL Creatinine (0.8-1.5) mg/dL Estimated GFR ml/min BUN/Creatinine Ratio % Glucose (75-100) mg/dL Lactic Acid (0.7-2.0) mmol/L Calcium (8.4-10.2) mg/dL Total Bilirubin (0.1-1.2) mg/dL AST (5-40) units/L ALT (7-56) units/L Alkaline Phosphatase (35-129) units/L Total Protein (6.3-8.2) g/dL Albumin (3.9-5) g/dL Albumin/Globulin Ratio % Urine Color Yellow (Yellow) Urine Turbidity Turbid (Clear) Urine pH 5.0 (5.0-7.0) Ur Specific [place] 1.035 H (1.003-1.030) Urine Protein 30 mg/dl (Negative) mg/dL Urine Glucose (UA) Trace (Negative) mg/dL Urine Ketones Trace (Negative) mg/dL Urine Blood Moderate A (Negative) Urine Nitrite Negative (Negative) Urine Bilirubin Negative (Negative) Urine Urobilinogen 2.0 (<2.0) mg/dL Ur Leukocyte Esterase 25 (Negative) Urine WBC (Auto) 17.0 H (0.0-6.0) /HPF Urine RBC (Auto) 12.0 (0.0-6.0) /HPF U Epithel Cells (Auto) 11.0 (0-13.0) /HPF Urine Bacteria (Auto) 1+ (Negative) /HPF Urine Mucus Few /HPF Urine Yeast (Budding) Rare /HPF Vital Signs 12/30/19 12/30/19 10:55 17:07 Temperature 99.3 F 98.2 F Pulse Rate 117 H 83 Respiratory 18 16 Rate Blood Pressure 101/64 Blood Pressure 117/87 [Left] O2 Sat by Pulse 99 99 Oximetry LABS NOTED UA NOTED CULTURES SENT AND PENDING MEDICATED IN ER WITH NS/ANTIBIOTICS PROTONIX IV IN ER XRAY NOTED [address] THURSTON PT OK FOR DC WITH PCP/ID/GI FOLLOW UP HGB STABLE; NO TACHYCARDIA P FLUIDS; TAKING PO; HAS PICC LINE AND HAS HOME HEALTH FOR IV ANTIBIOTIC ADMINISTRATION; PPI TO BID PT VERBALIZES UNDERSTANDING OF PLAN OF CARE PT IS ON DAPTO AND ROCEPHIN IV AT HOME; BACTRIM PO - Differential Diagnosis RO SEPSIS/RO HEMORRHAGIC SHOCK/RO PERF ULCER Critical care attestation.: If time is entered above; I have spent that time in minutes in the direct care of this critically ill patient, excluding procedure time. ED Disposition Clinical Impression: HIV (human immunodeficiency virus infection), Bilateral pneumonia, Epigastric pain, Status post PICC central line placement, Receiving intravenous antibiotic treatment as outpatient, GERD (gastroesophageal reflux disease), Constipation Disposition: DC-01 TO HOME OR SELFCARE Is pt being admited?: No Does the pt Need Aspirin: No Condition: Stable Instructions: Gastroesophageal Reflux Disease (ED) Additional Instructions: BLAND DIET CONTINUE HOME MEDS TAKE MEDS WITH FOOD PROTONIX SHOULD BE INCREASED TO TWICE PER DAY FOLLOW UP WITH GI MD REFERRAL BELOW FOLLOW UP WITH PCP AND OTHER SPECIALISTS TRACEY AVOID MOTRIN OR IBRUPROFEN; AVOID ALCOHOL Prescriptions: Polyethylene Glycol 3350 [Miralax] 119 gm PO DAILY #30 powder Pantoprazole [Protonix] 40 mg PO BID #60 tablet Referrals: PRIMARY MD SLY [Primary Care Provider] - 3-5 Days KYLER WEINSTEIN MD [Staff Physician] - 3-5 Days SRINIVAS PARDO MD [Staff Physician] - 3-5 Days Forms: Accompanied Note Time of Disposition: 17:48
[2019-12-30] MEDS ORDERED: SODIUM CHLORIDE 0.9% 1000 ML 1,000 ML IV ONE (15:22)
[2019-12-30] MEDS ORDERED: SODIUM CHLORIDE 0.9% 1000 ML IV SOLN IV ONE (15:30)
[2019-12-30 15:54] LABS: Hematocrit 37.5 % (35.5-45.6); Hemoglobin 12.2 gm/dl (11.8-15.2); Mean Corpuscular HGB Conc 33 % (32-34); Mean Corpuscular Volume 81 fl (84-94); Platelet Count 228 K/mm3 (140-440); Red Blood Count 4.64 M/mm3 (3.65-5.03)
[2019-12-30] MEDS ORDERED: cefTRIAXone/NS 2 GM/100 ML 2 GM/100 ML BAG IV SCH (16:00)
[2019-12-30 16:17] LABS: Alanine Aminotransferase 29 units/L (7-56); Albumin 4.7 g/dL (3.9-5); BUN/Creatinine Ratio 12; Blood Urea Nitrogen 13 mg/dL (9-20); Calcium 9.8 mg/dL (8.4-10.2); Hemolysis Index 35
[2019-12-30 16:18] LABS: Red Cell Distribution Width 20.8 % (13.2-15.2)
[2019-12-30] MEDS ORDERED: POLYETHYLENE GLYCOL 3350 17 GM POWDER PO ONE (16:53)
[2019-12-30] MEDS ORDERED: ONDANSETRON 4 MG/2 ML INJ IV ONE (16:58)
[2019-12-30] MEDS ORDERED: HYDROmorphone 1 MG/1 ML INJ IV ONE (17:06)
[2019-12-30 17:10] VITALS: BP 117/87
[2019-12-30 17:43] LABS: Color,Urine Yellow (Yellow)
[2019-12-30 17:44] LABS: Bilirubin,Urine Negative (Negative); Blood,Urine Moderate (Negative)
[2019-12-30 17:45] LABS: Bacteria,Urine 1+ /HPF (Negative)
[2019-12-30 17:46] LABS: Mucus,Urine Few /HPF
[2019-12-30 21:01] LABS: Anisocytosis 2+; Basophils % (Manual) 0 % (0.0-1.8); Tear Drop Cells Rare; Total Cells Counted 100
[2019-12-30 21:02] LABS: Hypochromasia Few; Large Platelets 1+; Platelet Estimate Consistent w Auto
== END 2019-12-30 19:20 | disposition home or self-care (01) ==
LOC: ED 10:50
DX: J18.9 Pneumonia, unspecified organism (principal); K21.9 Gastro-esophageal reflux disease without esophagitis; K59.00 Constipation, unspecified; F17.200 Nicotine dependence, unspecified, uncomplicated; F12.10 Cannabis abuse, uncomplicated; Z95.828 Presence of other vascular implants and grafts; Z21 Asymptomatic human immunodeficiency virus [HIV] infection status; Z79.899 Other long term (current) drug therapy
CPT/HCPCS: 36415; 74022; 80053; 81001; 82140; 85007; 85025; 87040; 87086; 96365; 96367; 96375; 99284; C9113; J0696; J0878; J1170; J2405; J7030